=== PATIENT | female | born 1950 | race Caucasian/White ===

== ENCOUNTER → 2016-07-22 | Outpatient (CLI) | payer BC ==
[~2016-07-22] MED LIST: AMLO-110 PO; AMLO2.5T PO; ASPI-232 PO; ATOR-26 PO; CPR250 PO; CYAN50002 SL; FLUO20CA35 PO; GLIP10TA10 PO; ISOS120T5 PO; LANS15CA15 PO; LIRA18IN INJ; LIRA18IN SQ; LSN20 PO; MISCCAP80 PO; MULTTAB5 PO; NTRGSL/4 UT; PLV75 PO; RANO500T PO; TPRSR/50 PO
--- NOTE | 2016-07-23 08:02 | MAMMOGRAPHY REPORT ---
BILATERAL DIGITAL SCREENING MAMMOGRAM WITH CAD: 07/22/2016 CLINICAL HISTORY: Routine screening examination. TECHNIQUE: Bilateral CC and MLO views were obtained. Current study was also evaluated with a Comput er Aided Detection (CAD) system. COMPARISON: Comparison is made to exams dated: 03/07/2015 mammogram, 02/18/2014 mammogram, 08/11/2012 mammogram, and 05/09/2006 mammogram - [facility]. BREAST COMPOSITION: There are scattered areas of fibroglandular density in both breasts. FINDINGS: There are scattered benign coarse calcifications and mild vascular calcifications in the b reasts. No suspicious mass, architectural distortion or cluster of microcalcifications is seen. IMPRESSION: ACR BI-RADS CATEGORY 1: NEGATIVE There is no mammographic evidence of malignancy. A 1 year screening mammogram is recommended. The p atient will receive written notification of the results. Approximately 10% of breast cancers are not detected with mammography. A negative mammographic repor t should not delay biopsy if a clinically suggestive mass is present. Mary Darden M.D. ay/:07/22/2016 16:41:28 Utility Maintenance Worker: Esthela SALAZAR)([place]), [facility] letter sent: Normal 1/2 BI-RADS Code: ACR BI-RADS Category 1: Negative
== END | disposition home or self-care (01) ==
LOC: C.MAMM 11:33
PROVIDERS: ATTEND Internal Medicine
DX: Z12.31 Encounter for screening mammogram for malignant neoplasm of breast (principal)

== ENCOUNTER 2016-08-09 10:06 | Emergency (ER) | payer BC ==
[~2016-08-09] VITALS: Ht 160 cm; Wt 96.3 kg
[~2016-08-09 10:06] MED LIST changes: -AMLO-110 PO; -LIRA18IN INJ; -RANO500T PO
[2016-08-09 10:12] VITALS: TEMP 36.4; Ht 160 cm; Wt 96.3 kg
[2016-08-09] MEDS ORDERED: ACETAMINOPHEN 500 MG TAB PO STA (11:09)
--- NOTE | 2016-08-09 11:29 | EMERGENCY ROOM VISIT NOTE ---
ED Visit Note First contact with patient: 10:50 I have seen and examined this patient with Jarrod Jason and generally agree with the treatment plan as discussed.
--- NOTE | 2016-08-09 11:58 | DIAGNOSTIC IMAGING REPORT ---
RIGHT KNEE 3 VIEWS CLINICAL HISTORY: Right knee pain. FINDINGS: AP, crosstable lateral, and sunrise views of the right knee are obtained. No prior studies are available for comparison at the time of dictation. The skeletal structures are osteopenic. No fracture is seen. There is mild tricompartmental degenerative joint space narrowing, greatest in the lateral and patellofemoral compartments. There are patellar enthesophytes and tiny marginal osteophytes. No joint effusion is seen. The overlying soft tissues are within normal limits. Bony overgrowth is noted from the anterior tibial tuberosity. A calcified fabella is incidentally noted. IMPRESSION: Osteopenia and mild degenerative change as above. No acute bony abnormality is seen. Electronically signed by: Gianni Polk M.D. 08/09/2016 11:57 AM Dictated Date/Time: 08/09/2016 11:55 AM
--- NOTE | 2016-08-09 12:04 | DIAGNOSTIC IMAGING REPORT ---
RIGHT ANKLE 3 VIEWS HISTORY: Right ankle pain. COMPARISON: None. FINDINGS: There is no fracture or dislocation. Soft tissues are unremarkable. Plantar and posterior calcaneal spurs. IMPRESSION: No fractures. Electronically signed by: Nick Garcia M.D. 08/09/2016 12:02 PM Dictated Date/Time: 08/09/2016 12:00 PM
[2016-08-09] MEDS ORDERED: RANO500T PO (12:12)
[2016-08-09] MEDS ORDERED: AMLO-110 PO (12:12)
--- NOTE | 2016-08-09 12:25 | EMERGENCY ROOM VISIT NOTE ---
ED Visit Note First contact with patient: 10:50 CHIEF COMPLAINT: Right lower leg injury after a fall 2 hours ago HISTORY OF PRESENT ILLNESS: Patient is a 66-year-old white female who presents emergency department for evaluation of right lower leg pain after a fall this morning. Injury occurred about 2 hours ago when she slipped down the stairs to her deck. They report that they were icy. She reports doing a splint, with her right leg out in front of her. She slid down around 8 steps. She had an appointment for an eye exam, so she This, then came to the emergency department. She did not strike her head or lose consciousness. She was able to ambulate after the fall, but reports increasing pain as the morning has gone on. She did not take any medication for her discomfort which she presently rates a 5/10. The pain is localized around the anterior knee, and radiates down the right lower leg. She denies any upper leg or hip pain. It is worse weightbearing. She denies any prior history of injuries or surgeries to the right leg. REVIEW OF SYSTEMS: Review of systems as per HPI. All other systems reviewed were negative. At least 6 systems reviewed. PMH: Electronic medical records are reviewed and summarized as above/below. See Problem List. SOCIAL HISTORY: Patient lives at home. . Nonsmoker. PHYSICAL EXAM: Vital Signs: Reviewed Nurse's notes. MENTAL STATUS: Patient is an uncomfortable-appearing 58-year-old white female who is awake and alert and in no acute distress. MUSCULOSKELETAL: Examination of the lower extremities bilaterally show ecchymosis in the anterior knee and pretibial area. Skin is otherwise intact. She does not have any right knee effusion palpable. She has some peripatellar tenderness and crepitus and medial joint line discomfort. No pain over the lateral joint line. She has some discomfort over the tibial tuberosity as well. She can extend fully and flex greater than 90. The calves are soft and nontender. There is no pain along the anterior tibial spine. She does have some discomfort over the distal tibial shaft, slight pain over the medial and lateral malleolus, but no swelling of the ankle is noted. Foot is normal to inspection. There is no ecchymosis or swelling noted. Metatarsals are nontender. Distal pulses are easily palpable. Sensation light touch is intact. EMERGENCY DEPARTMENT COURSE: Patient was medicated with Tylenol for discomfort. Ice packs were applied. Right knee and right ankle x-rays were performed, which noted minor arthritic changes. No acute fractures identified. The patient was reassured. Differential diagnoses included fracture, sprain, contusion, ligamentous injury, strain, among others. Patient was offered an Danilo wrap. She reports they have multiple assistive devices at home including crutches, cane and a walker. She was encouraged to ice the areas that were painful, rest and elevate the leg, and use a cane if needed for ambulation. She will use Tylenol or ibuprofen for discomfort. She declined prescription analgesia. RIGHT KNEE 3 VIEWS CLINICAL HISTORY: Right knee pain. FINDINGS: AP, crosstable lateral, and sunrise views of the right knee are obtained. No prior studies are available for comparison at the time of dictation. The skeletal structures are osteopenic. No fracture is seen. There is mild tricompartmental degenerative joint space narrowing, greatest in the lateral and patellofemoral compartments. There are patellar enthesophytes and tiny marginal osteophytes. No joint effusion is seen. The overlying soft tissues are within normal limits. Bony overgrowth is noted from the anterior tibial tuberosity. A calcified fabella is incidentally noted. IMPRESSION: Osteopenia and mild degenerative change as above. No acute bony abnormality is seen. RIGHT ANKLE 3 VIEWS HISTORY: Right ankle pain. COMPARISON: None. FINDINGS: There is no fracture or dislocation. Soft tissues are unremarkable. Plantar and posterior calcaneal spurs. IMPRESSION: No fractures. Problem List Medical Problems: (1) Acute gastroenteritis Status: Resolved (2) Angina pectoris Status: Resolved (3) CAD (coronary artery disease) Status: Chronic (4) Chest pain Status: Resolved (5) CP, CAD, DM2 Status: Chronic (6) Dehydration, sycope, possible renal colic Status: Resolved (7) Diabetes Status: Chronic (8) Dyslipidemia Status: Chronic (9) Felon Status: Resolved (10) GERD (gastroesophageal reflux disease) Status: Chronic (11) Hypertension Status: Chronic (12) Paronychia Status: Resolved (13) Precordial chest pain Status: Resolved (14) Sepsis Status: Resolved (15) Shingles Status: Resolved (16) Substernal chest pain Status: Resolved (17) SYNCOPE, ABD.PAIN,CAD,DM2 Status: Resolved (18) Unstable angina Status: Resolved Surgical Problems: (1) H/O percutaneous transluminal coronary angioplasty Status: Resolved (2) History of cholecystectomy Status: Resolved (3) History of hysterectomy Status: Resolved (4) History of splenectomy Status: Resolved (5) History of stent placement Status: Resolved (6) Stented coronary artery Status: Chronic Current/Historical Medications Scheduled Amlodipine (Norvasc), 2.5 MG PO DAILY Aspirin (Aspir-81), 81 MG PO QAM Atorvastatin (Lipitor), 80 MG PO DAILY Clopidogrel Bisulfate (Clopidogrel), 75 MG PO QAM Fluoxetine (Prozac), 20 MG PO DAILY Glipizide (Glipizide), 20 MG PO BID Isosorbide Mononitrate Ext Rel (Imdur Ext Rel), 120 MG PO QAM Lansoprazole (Prevacid), 15 MG PO DAILY Lisinopril (Lisinopril), 20 MG PO DAILY Probiotic Product (Probiotic), 1 CAP PO DAILY Ranolazine (Ranexa), 1 TAB PO BID Scheduled PRN Nitroglycerin (Nitrostat), 0.4 MG UT UD PRN for Chest Pain Allergies Coded Allergies: Penicillins (Verified Allergy, Intermediate, Numbness of lips, 09/12/15) Prasugrel (Verified Allergy, Intermediate, RASH,ITCHY, 04/12/16) Vital Signs Date Time Temp Pulse Resp B/P Pulse Ox O2 Delivery O2 Flow Rate FiO2 08/09/16 12:34 65 18 152/63 97 08/09/16 11:25 66 18 136/57 96 Room Air 08/09/16 10:12 36.4 59 18 163/76 96 Room Air Medications Administered Medications (Trade) Dose Ordered Sig/Lory Route Start Time Stop Time Status Last Admin Dose Admin Acetaminophen (Tylenol Tab) 1,000 mg NOW STAT PO 08/09/16 11:09 08/09/16 11:10 DC 08/09/16 11:24 1,000 MG Departure Information Impression Primary Impression: Right knee sprain Additional Impressions: Contusion of leg, right Fall Referrals Daniel Oreilly M.D. (PCP) Patient Instructions My [facility] Additional Instructions Ibuprofen(Motrin, Advil) may be used for fever or pain. Use 600mg every six hours as needed. Take with food. Avoid using more than 2400mg in a 24 hour period. Do not use 2400mg per day for more than three consecutive days without physician direction. Prolonged inappropriate use can lead to stomach upset or ulcers. This medication can be taken if you need to drive, work, or perform activities which may be dangerous when taking narcotic pain medication. (AND/OR) Acetaminophen(Tylenol) may be used for fever or pain. Use 1000mg every six hours as needed. Avoid using more than 3000mg in a 24 hour period. This medication can be taken if you need to drive, work, or perform activities which may be dangerous when taking narcotic pain medication. Ice compresses for 20 minutes at a time four times daily for 2-3 days. Use a cane/walker/crutches if needed. Rest and elevate your injury. Continue current medications. Return to the ER immediately for any numbness, tingling, severe pain, extreme swelling in the extremity or as needed. Follow-up with your primary care provider or orthopedic surgery if your symptoms are not improving in 5-7 days. Problem Qualifiers Primary Impression: Right knee sprain Encounter type: initial encounter Involved ligament of knee: unspecified ligament Qualified Codes: S83.91XA - Sprain of unspecified site of right knee , initial encounter Additional Impressions: Contusion of leg, right Encounter type: initial encounter Qualified Codes: S80.11XA - Contusion of right lower leg, initial encounter Fall Encounter type: initial encounter Qualified Codes: W19.XXXA - Unspecified fall, initial encounter
[2016-08-09 12:34] VITALS: BP 152/63; PULSE 65; O2SAT 97
== END 2016-08-09 12:37 | disposition home or self-care (01) ==
LOC: C.EDB 10:08 → C.EDC 12:37
DX: S83.91XA Sprain of unspecified site of right knee, initial encounter (principal); S80.11XA Contusion of right lower leg, initial encounter; W19.XXXA Unspecified fall, initial encounter; I25.10 Atherosclerotic heart disease of native coronary artery without angina pectoris; E11.9 Type 2 diabetes mellitus without complications; E78.5 Hyperlipidemia, unspecified; K21.9 Gastro-esophageal reflux disease without esophagitis; I10 Essential (primary) hypertension; Z90.49 Acquired absence of other specified parts of digestive tract; Z90.710 Acquired absence of both cervix and uterus; Z79.82 Long term (current) use of aspirin

== ENCOUNTER → 2016-09-12 | Outpatient (CLI) | payer BC ==
[~2016-09-12] MED LIST changes: +AMLO-110 PO; -AMLO2.5T PO; -CPR250 PO; -CYAN50002 SL; +LIRA18IN INJ; -LIRA18IN SQ; -MULTTAB5 PO; +RANO500T PO; -TPRSR/50 PO
[2016-09-12 12:46] LABS: BASO % 0.7 %; BASO ABS # 0.06 K/uL (0-0.2); COMPLETE YES; EOS % 3.5 %; HEMATOCRIT 33.4 % (37-47); IG% 0.1 %; LYMPH % 38.7 %; LYMPH ABS # 3.31 K/uL (1.2-3.4); MEAN CELL VOLUME 92.3 fL (80-100); MEAN CORPUSCULAR HEMOGLOBIN 28.2 pg (25-34); MEAN CORPUSCULAR HGB CONC 30.5 g/dl (32-36); MEAN PLATELET VOLUME 11.1 fL (7.4-10.4); MONO % 11.8 %; NEUT % 45.2 %; PLATELET COUNT 380 K/uL (130-400); RED BLOOD COUNT 3.62 M/uL (4.2-5.4); WHITE BLOOD COUNT 8.55 K/uL (4.8-10.8)
[2016-09-12 13:10] LABS: ESTIMATED AVERAGE GLUCOSE 157 mg/dl; HA1C FLAG Normal (Normal)
[2016-09-12 13:55] LABS: ALT/SGPT 28 U/L (12-78); BLOOD UREA NITROGEN 23 mg/dl (7-18); BUN/CREATININE RATIO 14.2 (10-20); CALCIUM 9.2 mg/dl (8.5-10.1); CARBON DIOXIDE 29 mmol/L (21-32); CHLORIDE 107 mmol/L (98-107); GLUCOSE 102 mg/dl (70-99); POTASSIUM 5.1 mmol/L (3.5-5.1); SODIUM 140 mmol/L (136-145)
[2016-09-12 13:58] LABS: ALB/GLOB RATIO 1.1 (0.9-2); ALKALINE PHOSPHATASE 91 U/L (45-117); AST/SGOT 15 U/L (15-37); CHOLESTEROL 153 mg/dl (0-200); CHOLESTEROL/HDL RATIO 1.5; HDL CHOLESTEROL 104 mg/dl; TRIGLYCERIDES 61 mg/dl (0-150); VERY LOW DENSITY LIPOPROT CALC 12 mg/dl
[2016-09-12 17:02] LABS: RATIO 6.6 mcg/mg (0-30.0)
== END | disposition home or self-care (01) ==
LOC: C.LABSPEC 12:26
PROVIDERS: ATTEND Internal Medicine
DX: I10 Essential (primary) hypertension (principal); E11.65 Type 2 diabetes mellitus with hyperglycemia; I25.10 Atherosclerotic heart disease of native coronary artery without angina pectoris; E78.5 Hyperlipidemia, unspecified

== ENCOUNTER 2016-10-16 10:01 | Emergency (ER) | payer BC ==
[~2016-10-16 10:01] MED LIST changes: -LIRA18IN INJ
[2016-10-16 10:02] VITALS: Ht 160 cm
[2016-10-16] MEDS ORDERED: ASPIRIN 81 MG CHEW PO STA (10:35)
[2016-10-16 10:36] VITALS: O2SAT 100
--- NOTE | 2016-10-16 10:38 | EMERGENCY ROOM VISIT NOTE ---
History Report prepared by Kristi: Alvin Krueger Under the Supervision of: Dr. Antonia Hernandez M.D. First contact with patient: 10:16 Chief Complaint: CHEST PAIN Stated Complaint: CHEST PAIN, LIGHTHEADED History of Present Illness The patient is a 66 year old female with a history of coronary artery disease who presents to the Emergency Room with complaints of persistent left-sided chest pain that started this morning. The pain is rated 5/10 in severity. She did not take any Nitroglycerin as she forgot it, but she notes that it usually helps when she experiences chest pain. She had 81 mg Aspirin. The patient also became lightheaded, and describes "having trouble hearing and trouble concentrating." The patient has some pain in the left arm down to the elbow. The patient was at a restaurant when her symptoms started, and she notes that she felt fine prior to that. The patient has had 5 stents placed, with the last being in August. The patient is scheduled to see Dr. Robledo, production control clerk. She is seen by the [facility]. She also has a history of diabetes. She is not a smoker. Source of History: patient Onset: this morning Position: chest (left) Symptom Intensity: 5/10 Timing: other (persistent) Note: + lightheadedness and left arm pain. Review of Systems See HPI for pertinent positives & negatives. A total of 10 systems reviewed and were otherwise negative. Past Medical & Surgical Medical Problems: (1) Acute gastroenteritis (2) Angina pectoris (3) CAD (coronary artery disease) (4) Chest pain (5) CP, CAD, DM2 (6) Dehydration, sycope, possible renal colic (7) Diabetes (8) Dyslipidemia (9) Felon (10) GERD (gastroesophageal reflux disease) (11) Hypertension (12) Paronychia (13) Precordial chest pain (14) Sepsis (15) Shingles (16) Substernal chest pain (17) SYNCOPE, ABD.PAIN,CAD,DM2 (18) Unstable angina Surgical Problems: (1) H/O percutaneous transluminal coronary angioplasty (2) History of cholecystectomy (3) History of hysterectomy (4) History of splenectomy (5) History of stent placement (6) Stented coronary artery Family History FHx: cancer FHx: diabetes FHx: hypertension Social History Smoking Status: Never Smoker Alcohol Use: none Marital Status: Housing Status: lives with significant other Occupation Status: retired Current/Historical Medications Scheduled Amlodipine (Norvasc), 2.5 MG PO DAILY Aspirin (Aspir-81), 81 MG PO QAM Atorvastatin (Lipitor), 80 MG PO DAILY Clopidogrel Bisulfate (Clopidogrel), 75 MG PO QAM Fluoxetine (Prozac), 20 MG PO DAILY Glipizide (Glipizide), 20 MG PO BID Isosorbide Mononitrate Ext Rel (Imdur Ext Rel), 120 MG PO QAM Lansoprazole (Prevacid), 15 MG PO DAILY Lisinopril (Lisinopril), 20 MG PO DAILY Probiotic Product (Probiotic), 1 CAP PO DAILY Ranolazine (Ranexa), 1,000 MG PO BID Scheduled PRN Nitroglycerin (Nitrostat), 0.4 MG UT UD PRN for Chest Pain Miscellaneous Medications Liraglutide (Victoza), 1.2 MG INJ Allergies Coded Allergies: Penicillins (Verified Allergy, Intermediate, Numbness of lips, 10/16/16) Prasugrel (Verified Allergy, Intermediate, RASH,ITCHY, 10/16/16) Physical Exam Vital Signs Date Time Temp Pulse Resp B/P (MAP) Pulse Ox O2 Delivery O2 Flow Rate FiO2 10/16/16 14:04 36.3 63 24 137/73 99 10/16/16 13:02 63 10/16/16 12:10 58 16 136/69 99 Room Air 10/16/16 10:36 100 Nasal Cannula 2.0 10/16/16 10:35 67 20 144/68 100 Nasal Cannula 2.0 10/16/16 10:19 66 10/16/16 10:02 36.3 65 16 121/71 100 Room Air Physical Exam Vital signs reviewed. General: Well-appearing female, diffuse weakness, in no significant distress. HEENT: No scleral icterus, PERRLA, neck supple. Atraumatic. Cardiovascular: Regular rate and rhythm, no extra sounds. Pulmonary: Clear to auscultation bilaterally, normal work of breathing. Abdomen: Soft, nontender, nondistended, positive bowel sounds. Musculoskeletal: Atraumatic, no peripheral edema. Neurologic: Patient awake alert and oriented x 3, full strength in all 4 extremities. Cranial nerves 2 through 12 grossly intact. No focal deficits appreciated. Skin: Warm, dry, no rash Medical Decision & Procedures ER Provider Diagnostic Interpretation: X-ray results as stated below per interpretation by me and the radiologist: CHEST ONE VIEW PORTABLE HISTORY: Atypical chest pain COMPARISON: Chest 04/11/2016. FINDINGS: The lungs are clear. Cardiac silhouette is mildly enlarged. No pleural effusions. No pneumothorax. IMPRESSION: Stable mild cardiomegaly. Electronically signed by: Nick Garcia M.D. 10/16/2016 11:11 AM Dictated Date/Time: 10/16/2016 11:11 AM Laboratory Results 10/16/16 10:15 Red Blood Count 3.51, Mean Corpuscular Volume 92.0, Mean Corpuscular Hemoglobin 29.3, Mean Corpuscular Hemoglobin Concent 31.9, Mean Platelet Volume 11.0, Neutrophils (%) (Auto) 49.9, Lymphocytes (%) (Auto) 34.1, Monocytes (%) (Auto) 12.7, Eosinophils (%) (Auto) 2.5, Basophils (%) (Auto) 0.5, Neutrophils # (Auto ) 5.08, Lymphocytes # (Auto) 3.48, Monocytes # (Auto) 1.30, Eosinophils # (Auto ) 0.26, Basophils # (Auto) 0.05 10/16/16 10:15 Test 10/16/16 10:15 10/16/16 12:36 White Blood Count 10.20 K/uL (4.8-10.8) Red Blood Count 3.51 M/uL (4.2-5.4) Hemoglobin 10.3 g/dL (12.0-16.0) Hematocrit 32.3 % (37-47) Mean Corpuscular Volume 92.0 fL (80-100) Mean Corpuscular Hemoglobin 29.3 pg (25-34) Mean Corpuscular Hemoglobin Concent 31.9 g/dl (32-36) Platelet Count 379 K/uL (130-400) Mean Platelet Volume 11.0 fL (7.4-10.4) Neutrophils (%) (Auto) 49.9 % Lymphocytes (%) (Auto) 34.1 % Monocytes (%) (Auto) 12.7 % Eosinophils (%) (Auto) 2.5 % Basophils (%) (Auto) 0.5 % Neutrophils # (Auto) 5.08 K/uL (1.4-6.5) Lymphocytes # (Auto) 3.48 K/uL (1.2-3.4) Monocytes # (Auto) 1.30 K/uL (0.11-0.59) Eosinophils # (Auto) 0.26 K/uL (0-0.5) Basophils # (Auto) 0.05 K/uL (0-0.2) RDW Standard Deviation 44.9 fL (36.4-46.3) RDW Coefficient of Variation 13.4 % (11.5-14.5) Immature Granulocyte % (Auto) 0.3 % Immature Granulocyte # (Auto) 0.03 K/uL (0.00-0.02) Anion Gap 6.0 mmol/L (3-11) Estimated GFR () 41.1 Estimated GFR (Non- 35.4 BUN/Creatinine Ratio 14.5 (10-20) Calcium Level 8.3 mg/dl (8.5-10.1) Magnesium Level 2.1 mg/dl (1.8-2.4) Total Bilirubin 0.8 mg/dl (0.2-1) Direct Bilirubin 0.2 mg/dl (0-0.2) Aspartate Amino Transf (AST/SGOT) 16 U/L (15-37) Alanine Aminotransferase (ALT/SGPT) 19 U/L (12-78) Alkaline Phosphatase 99 U/L (45-117) Total Creatine Kinase 62 U/L (26-192) Creatine Kinase MB < 0.5 ng/ml (0.5-3.6) Creatine Kinase MB Ratio (0-3.0) Total Protein 6.6 gm/dl (6.4-8.2) Albumin 3.4 gm/dl (3.4-5.0) Bedside Troponin I 0.000 ng/ml (0-0.045) Laboratory results per my review. Medications Administered Medications (Trade) Dose Ordered Sig/Lory Route Start Time Stop Time Status Last Admin Dose Admin Nitroglycerin (Nitroglycerin 2% Oint) 1 inch NOW ONCE EXT 10/16/16 10:45 10/16/16 10:46 DC 10/16/16 10:46 1 INCH Aspirin (Aspirin Chew) 243 mg NOW STAT PO 10/16/16 10:35 10/16/16 10:37 DC 10/16/16 10:45 243 MG ECG Indication: chest pain Rate (beats per minute): 67 Rhythm: sinus rhythm Findings: 1st degree AV block, other (likely prevoius inferior and anterior infarct) ED Course 1030: Past medical records reviewed. The patient was evaluated in room B7. A complete history and physical examination was performed. 1035: Aspirin 243 mg PO. 1045: Nitroglycerin 1 inch EXT. 1325: Reassessed the patient. She is doing well. Paging Dr. Gong. 1334: Discussed the case with Dr. Gong, Knotting Machine Operator. He states that she has an extensive cardiac history and should follow up at the [facility]. Medical Decision Differential diagnosis: Acute coronary syndrome, pulmonary embolus, aortic dissection, musculoskeletal pain, pneumonia, pleural effusion, pneumothorax Medication Reconciliation: I attest that I have personally reviewed the patient' s current medication list. Blood Pressure Screening: Patient was found to have fair blood pressure on screening and does not require follow-up. This pt was evaluated and appeared to be generally weak, but in no distress. IV access was obtained and lab work was drawn. Pt seemed to be anxious and was only fairly cooperative with exam. She required significant encouragement to complete the neuro exam. EKG reveals no acute ischemia. CXR reveals mild cardiomegaly. Pt was given topical NTG. Two troponins are 0.0. Pt has a significant h/o CAD and stenting. She was advised that she will require surgical intervention if anginal sx continue. I discussed the case with her PCP , Dr Amanda Boyer, who will see the pt tomorrow in f/u. Pt was d/c to care of multiple family members. She will return to the ED for any change in symptoms. She was encouraged to contact her production control clerk at the [facility] for f/ u MITZI. Impression Primary Impression: Substernal precordial chest pain Additional Impression: CAD (coronary artery disease) Scribe Attestation The scribe's documentation has been prepared under my direction and personally reviewed by me in its entirety. I confirm that the note above accurately reflects all work, treatment, procedures, and medical decision making performed by me. Departure Information Dispostion Home / Self-Care Referrals Aboul Hosn, Daniel, M.D. (PCP) Forms HOME CARE DOCUMENTATION FORM, IMPORTANT VISIT INFORMATION Patient Instructions My [facility] Additional Instructions Diagnosis: Coronary disease, Chest pain Continue medications as prescribed. See Dr Amanda Boyer tomorrow. Follow up with [facility] this week for reevaluation, call today for an appt. Return to emergency for worsening of symptoms or any medical concerns. Problem Qualifiers
[2016-10-16] MEDS ORDERED: NITROGLYCERIN OINT 2% 1GM PACKET EXT ONE (10:45)
[2016-10-16 10:55] LABS: BASO % 0.5 %; BASO ABS # 0.05 K/uL (0-0.2); COMPLETE YES; EOS % 2.5 %; HEMATOCRIT 32.3 % (37-47); IG% 0.3 %; LYMPH % 34.1 %; LYMPH ABS # 3.48 K/uL (1.2-3.4); MEAN CORPUSCULAR HEMOGLOBIN 29.3 pg (25-34); MEAN CORPUSCULAR HGB CONC 31.9 g/dl (32-36); MONO % 12.7 %; NEUT % 49.9 %; PLATELET COUNT 379 K/uL (130-400); RED BLOOD COUNT 3.51 M/uL (4.2-5.4)
[2016-10-16 11:05] LABS: ALT/SGPT 19 U/L (12-78); AST/SGOT 16 U/L (15-37); BLOOD UREA NITROGEN 22 mg/dl (7-18); BUN/CREATININE RATIO 14.5 (10-20); CALCIUM 8.3 mg/dl (8.5-10.1); CARBON DIOXIDE 26 mmol/L (21-32); CHLORIDE 107 mmol/L (98-107); GLUCOSE 170 mg/dl (70-99); MAGNESIUM 2.1 mg/dl (1.8-2.4); POTASSIUM 4.8 mmol/L (3.5-5.1); SODIUM 139 mmol/L (136-145)
[2016-10-16 11:10] LABS: ALKALINE PHOSPHATASE 99 U/L (45-117)
--- NOTE | 2016-10-16 11:13 | DIAGNOSTIC IMAGING REPORT ---
CHEST ONE VIEW PORTABLE HISTORY: Atypical chest pain COMPARISON: Chest 04/11/2016. FINDINGS: The lungs are clear. Cardiac silhouette is mildly enlarged. No pleural effusions. No pneumothorax. IMPRESSION: Stable mild cardiomegaly. Electronically signed by: Nick Garcia M.D. 10/16/2016 11:11 AM Dictated Date/Time: 10/16/2016 11:11 AM
[2016-10-16] MEDS ORDERED: LIRA18IN INJ (11:37)
[2016-10-16 14:04] VITALS: BP 137/73; PULSE 63; TEMP 36.3; O2SAT 99
== END 2016-10-16 13:56 | disposition home or self-care (01) ==
LOC: C.EDB 10:02
DX: R07.2 Precordial pain (principal); I25.10 Atherosclerotic heart disease of native coronary artery without angina pectoris; E11.9 Type 2 diabetes mellitus without complications; E78.5 Hyperlipidemia, unspecified; K21.9 Gastro-esophageal reflux disease without esophagitis; I10 Essential (primary) hypertension; Z80.9 Family history of malignant neoplasm, unspecified; Z83.3 Family history of diabetes mellitus; Z82.49 Family history of ischemic heart disease and other diseases of the circulatory system; Z79.82 Long term (current) use of aspirin; Z79.899 Other long term (current) drug therapy

== ENCOUNTER → 2016-11-14 | Outpatient (CLI) | payer BC ==
[~2016-11-14] MED LIST changes: +LIRA18IN INJ
[2016-11-14 12:13] LABS: INR 1.3 (0.9-1.1); PROTHROMBIN TIME (PATIENT) 13.8 SECONDS (9.0-12.0)
== END | disposition home or self-care (01) ==
LOC: C.LABSPEC 11:45
PROVIDERS: ATTEND Internal Medicine
DX: I48.91 Unspecified atrial fibrillation (principal); Z79.01 Long term (current) use of anticoagulants

== ENCOUNTER 2016-11-15 20:20 | Emergency (ER) | payer BC ==
[~2016-11-15] VITALS: Ht 160 cm; Wt 102.6 kg
[2016-11-15 20:25] VITALS: Ht 160 cm; Wt 102.6 kg
--- NOTE | 2016-11-15 20:54 | EMERGENCY ROOM VISIT NOTE ---
History Report prepared by Kristi: Delaney Parham Under the Supervision of: Dr. Gordo Jett M.D. First contact with patient: 20:33 Chief Complaint: INFECTION Stated Complaint: INFECTION IN SURGERY SITE AROUND ABD History of Present Illness The patient is a 66 year old female who presents to the Emergency Room with complaints of a constant infection beginning today. The patient states that she had a double bypass 10 days ago and came home from the hospital 4 days ago. She notes that she is having some yellow drainage and redness from the surgical site and soreness. She denies any fever and abdominal pain. . The patient states that she has a follow up with Dr. Robledo here in the next few days. Source of History: patient Onset: today Position: chest Quality: other (infection) Timing: constant Associated Symptoms: No fevers Note: She notes that she is having some yellow drainage and redness from the surgical site and soreness. Review of Systems See HPI for pertinent positives & negatives. A total of 10 systems reviewed and were otherwise negative. Past Medical & Surgical Medical Problems: (1) Acute gastroenteritis (2) Angina pectoris (3) CAD (coronary artery disease) (4) Chest pain (5) CP, CAD, DM2 (6) Dehydration, sycope, possible renal colic (7) Diabetes (8) Dyslipidemia (9) Felon (10) GERD (gastroesophageal reflux disease) (11) Hypertension (12) Paronychia (13) Precordial chest pain (14) Sepsis (15) Shingles (16) Substernal chest pain (17) SYNCOPE, ABD.PAIN,CAD,DM2 (18) Unstable angina Surgical Problems: (1) H/O percutaneous transluminal coronary angioplasty (2) History of cholecystectomy (3) History of hysterectomy (4) History of splenectomy (5) History of stent placement (6) Stented coronary artery Family History FHx: cancer FHx: diabetes FHx: hypertension Social History Smoking Status: Never Smoker Alcohol Use: none Marital Status: Housing Status: lives with significant other Occupation Status: retired Current/Historical Medications Scheduled Amlodipine (Norvasc), 2.5 MG PO DAILY Aspirin (Aspir-81), 81 MG PO QAM Atorvastatin (Lipitor), 80 MG PO DAILY Clopidogrel Bisulfate (Clopidogrel), 75 MG PO QAM Fluoxetine (Prozac), 20 MG PO DAILY Glipizide (Glipizide), 20 MG PO BID Isosorbide Mononitrate Ext Rel (Imdur Ext Rel), 120 MG PO QAM Lansoprazole (Prevacid), 15 MG PO DAILY Lisinopril (Lisinopril), 20 MG PO DAILY Probiotic Product (Probiotic), 1 CAP PO DAILY Ranolazine (Ranexa), 1,000 MG PO BID Scheduled PRN Nitroglycerin (Nitrostat), 0.4 MG UT UD PRN for Chest Pain Miscellaneous Medications Liraglutide (Victoza), 1.2 MG INJ Allergies Coded Allergies: Penicillins (Verified Allergy, Intermediate, Numbness of lips, 10/16/16) Prasugrel (Verified Allergy, Intermediate, RASH,ITCHY, 10/16/16) Physical Exam Vital Signs Date Time Temp Pulse Resp B/P (MAP) Pulse Ox O2 Delivery O2 Flow Rate FiO2 11/15/16 20:55 36.8 71 18 155/61 98 11/15/16 20:25 36.8 75 18 142/71 98 Room Air Physical Exam GENERAL: Patient is a healthy-appearing well-nourished female HEAD: Normocephalic atraumatic EYES: Ocular movements intact pupils equal and react to light OROPHARYNX mucous membranes are moist no exudates present no erythema or edema present NECK: Supple no nuchal rigidity CHEST: Good equal expansion LUNGS: Clear and equal to auscultation CARDIAC: Normal S1 and S2 ABDOMEN: Soft nontender no guarding. The patient has 3 surgical wounds, no evidence of infection, unable to express any serosanguinous fluid or pus from the wound, appears to be granulomatous tissue that is healing well, no redness or streaking form the wound BACK: No CVA tenderness EXTREMITIES: No pain upon palpation normal muscle strength in all groups no clubbing cyanosis or edema NEURO: Patient is following commands and answering questions appropriately. Alert and oriented x3 Cranial Nerves 2-12 grossly intact Medical Decision & Procedures ED Course 2032: Past medical records reviewed. The patient was evaluated in room A4. A complete history and physical examination was performed. 2043: Upon reexamination the patient is doing well. I discussed results and treatment plan with the patient. She verbalizes agreement and understanding. The patient is ready for discharge. Medical Decision Differential diagnosis: Etiologies such as cellulitis, abscess, MRSA infection, DVT, necrotizing fasciitis, dermatitis, drug eruption, as well as others were entertained. Medication Reconciliation: I attest that I have personally reviewed the patient' s current medication list Blood Pressure Screening: Patient was found to have an elevated blood pressure and was referred to their primary care doctor for recheck and further treatment This is a 66-year-old female who presents emergency department requesting evaluation of a surgical site. The patient feels that there is pus leaking from the site however on examination this appears to be granulomatous tissue. I cannot express any fluid or pus from the patient's surgical wounds and they do appear to be healing well. A wound culture was taken however the patient does not have any fevers. I do believe that she can be safely discharged home for follow-up with her surgeon. Patient was in agreement with the treatment plan. Impression Primary Impression: Visit for wound check Scribe Attestation The scribe's documentation has been prepared under my direction and personally reviewed by me in its entirety. I confirm that the note above accurately reflects all work, treatment, procedures, and medical decision making performed by me. Departure Information Dispostion Home / Self-Care Referrals Daniel Oreilly M.D. (PCP) Forms HOME CARE DOCUMENTATION FORM, IMPORTANT VISIT INFORMATION, WORK / SCHOOL INSTRUCTIONS Patient Instructions [facility], [facility], Wound Care - [facility] Additional Instructions Apply bacitracin twice daily to wound, keep clean and dry Return if you develop fevers, pus or streaking from wound You were found to have an elevated blood pressure today (>120 sytolic or >90 diastolic). Per medicare guidelines, you need to follow up with this blood pressure screening with your Primary Care Physician (PCP). For a new PCP call [phone]. Culture results are usually available in approx 48 hours You have been examined and treated today on an emergency basis only. This is not a substitute for, or an effort to provide, complete comprehensive medical care. It is impossible to recognize and treat all injuries or illnesses in a single emergency department visit. It is therefore important that you follow up closely with Dr Amanda Boyer. Call as soon as possible for an appointment. Thank you for your time and consideration. I look forward to speaking with you again soon. Please don't hesitate to call us if you have any questions.
[2016-11-15 20:55] VITALS: BP 155/61; PULSE 71; TEMP 36.8; O2SAT 98
== END 2016-11-15 20:56 | disposition home or self-care (01) ==
LOC: C.EDB 20:21 → C.EDA 20:56
DX: Z76.89 Persons encountering health services in other specified circumstances (principal); I20.9 Angina pectoris, unspecified; I25.10 Atherosclerotic heart disease of native coronary artery without angina pectoris; E11.9 Type 2 diabetes mellitus without complications; E78.5 Hyperlipidemia, unspecified; K21.9 Gastro-esophageal reflux disease without esophagitis; I10 Essential (primary) hypertension; Z83.3 Family history of diabetes mellitus; Z82.49 Family history of ischemic heart disease and other diseases of the circulatory system; Z79.82 Long term (current) use of aspirin

== ENCOUNTER → 2016-11-18 | Outpatient (CLI) | payer BC ==
[2016-11-18 14:50] LABS: PROTHROMBIN TIME (PATIENT) 22.5 SECONDS (9.0-12.0)
== END | disposition home or self-care (01) ==
LOC: C.LABSPEC 10:30
PROVIDERS: ATTEND Internal Medicine
DX: I48.91 Unspecified atrial fibrillation (principal)

== ENCOUNTER → 2016-12-02 | Outpatient (CLI) | payer BC ==
[2016-12-02 17:23] LABS: INR 5.3 (0.9-1.1)
== END | disposition home or self-care (01) ==
LOC: C.LABSPEC 14:41
PROVIDERS: ATTEND Internal Medicine
DX: I48.91 Unspecified atrial fibrillation (principal); Z79.01 Long term (current) use of anticoagulants

== ENCOUNTER → 2016-12-12 | Outpatient (CLI) | payer BC ==
--- NOTE | 2016-12-12 10:16 | DIAGNOSTIC IMAGING REPORT ---
CHEST 2 VIEWS ROUTINE CLINICAL HISTORY: 66 years-old Female presenting with pleural effusion. TECHNIQUE: PA and lateral views of the chest were obtained. COMPARISON: 10/16/2016. FINDINGS: Median sternotomy wires now in place. Enlargement of the cardiac silhouette unchanged. Interval development of left basilar opacity with blunting of the left costophrenic angle. No pneumothorax. Osseous structures normal. Cholecystectomy clips noted. IMPRESSION: 1. Left basilar opacity, possibly atelectasis although infection cannot be excluded. 2. Small left pleural effusion. 3. Cardiomegaly. No yue evidence of pulmonary edema. Electronically signed by: Gavino Whitten M.D. 12/12/2016 10:14 AM Dictated Date/Time: 12/12/2016 10:13 AM
== END | disposition home or self-care (01) ==
LOC: C.RAD1850 09:54
PROVIDERS: ATTEND Internal Medicine Interventional Cardiology
DX: J90 Pleural effusion, not elsewhere classified (principal)

== ENCOUNTER → 2016-12-16 | Outpatient (CLI) | payer BC ==
[2016-12-16 15:39] LABS: PROTHROMBIN TIME (PATIENT) 22.4 SECONDS (9.0-12.0)
== END | disposition home or self-care (01) ==
LOC: C.LABSPEC 15:03
PROVIDERS: ATTEND Internal Medicine
DX: I48.91 Unspecified atrial fibrillation (principal); Z79.01 Long term (current) use of anticoagulants

== ENCOUNTER → 2017-01-17 | Outpatient (CLI) | payer BC ==
[2017-01-17 12:45] LABS: INR 2.3 (0.9-1.1)
[2017-01-17 12:48] LABS: ALT/SGPT 19 U/L (12-78); AST/SGOT 20 U/L (15-37); BLOOD UREA NITROGEN 15 mg/dl (7-18); BUN/CREATININE RATIO 10.2 (10-20); CALCIUM 9.1 mg/dl (8.5-10.1); CARBON DIOXIDE 29 mmol/L (21-32); CHLORIDE 102 mmol/L (98-107); CHOLESTEROL 161 mg/dl (0-200); GLUCOSE 172 mg/dl (70-99); POTASSIUM 4.5 mmol/L (3.5-5.1); SODIUM 139 mmol/L (136-145)
[2017-01-17 12:51] LABS: ALB/GLOB RATIO 0.9 (0.9-2); ALKALINE PHOSPHATASE 103 U/L (45-117); CHOLESTEROL/HDL RATIO 2.2; HDL CHOLESTEROL 73 mg/dl; TRIGLYCERIDES 93 mg/dl (0-150); VERY LOW DENSITY LIPOPROT CALC 19 mg/dl
[2017-01-17 13:03] LABS: ESTIMATED AVERAGE GLUCOSE 157 mg/dl; HA1C FLAG Normal (Normal)
== END | disposition home or self-care (01) ==
LOC: C.LABSPEC 12:14
PROVIDERS: ATTEND Internal Medicine
DX: Z79.01 Long term (current) use of anticoagulants (principal); E11.9 Type 2 diabetes mellitus without complications; I48.91 Unspecified atrial fibrillation; I10 Essential (primary) hypertension; I25.10 Atherosclerotic heart disease of native coronary artery without angina pectoris

== ENCOUNTER → 2017-02-07 | Outpatient (CLI) | payer BC ==
[2017-02-07 15:23] LABS: BLOOD UREA NITROGEN 21 mg/dl (7-18); CALCIUM 8.7 mg/dl (8.5-10.1); CARBON DIOXIDE 27 mmol/L (21-32); CHLORIDE 106 mmol/L (98-107); GLUCOSE 154 mg/dl (70-99); POTASSIUM 4.6 mmol/L (3.5-5.1); SODIUM 140 mmol/L (136-145)
== END | disposition home or self-care (01) ==
LOC: C.LABSPEC 14:26
PROVIDERS: ATTEND Internal Medicine Cardiovascular Disease
DX: I25.119 Atherosclerotic heart disease of native coronary artery with unspecified angina pectoris (principal); I12.9 Hypertensive chronic kidney disease with stage 1 through stage 4 chronic kidney disease, or unspecified chronic kidney disease; E11.22 Type 2 diabetes mellitus with diabetic chronic kidney disease; N18.3 Chronic kidney disease, stage 3 (moderate); E78.5 Hyperlipidemia, unspecified

== ENCOUNTER → 2017-02-13 | Outpatient (CLI) | payer BC ==
--- NOTE | 2017-02-13 10:41 | DIAGNOSTIC IMAGING REPORT ---
CHEST 2 VIEWS ROUTINE CLINICAL HISTORY: SOB COMPARISON STUDY: 12/12/2016 FINDINGS: There are postsurgical changes of a midline sternotomy. The heart remains enlarged. There is central vascular prominence without evidence of overt failure. There is been interval resolution of the previously identified left pleural effusion. There is no focal pulmonary consolidation.[ IMPRESSION: 1. Persistent cardiomegaly 2. Interval resolution of the small left pleural effusion 3. Mild central vascular prominence without evidence of overt failure Electronically signed by: Samir Tran M.D. 02/13/2017 10:40 AM Dictated Date/Time: 02/13/2017 10:39 AM
--- NOTE | 2017-02-18 01:40 | PULMONARY FUNCTION TEST ---
Spirometry shows a severe reduction in both forced vital capacity and FEV1 with a normal FEV1/FVC ratio. These results are compatible with severe restriction. A repeat study done, following bronchodilators, showed no significant change in function. Flow volume loops are consistent with spirometric findings. Lung volumes show a severe decrease in FRC, RV and TLC. This is consistent with severe restriction. Diffusion capacity is severely reduced to 41% of predicted. Advise clinical correlation.
== END | disposition home or self-care (01) ==
LOC: C.RC 09:10
PROVIDERS: ATTEND Internal Medicine
DX: R06.02 Shortness of breath (principal)

== ENCOUNTER → 2017-02-25 | Outpatient (CLI) | payer BC ==
[2017-02-25 16:35] LABS: BLOOD UREA NITROGEN 22 mg/dl (7-18); BUN/CREATININE RATIO 13.2 (10-20); CALCIUM 8.5 mg/dl (8.5-10.1); CARBON DIOXIDE 29 mmol/L (21-32); CHLORIDE 103 mmol/L (98-107); GLUCOSE 224 mg/dl (70-99); MAGNESIUM 2.3 mg/dl (1.8-2.4); POTASSIUM 4.6 mmol/L (3.5-5.1); SODIUM 137 mmol/L (136-145)
== END | disposition home or self-care (01) ==
LOC: C.LABSPEC 15:40
PROVIDERS: ATTEND Internal Medicine
DX: I10 Essential (primary) hypertension (principal); I25.10 Atherosclerotic heart disease of native coronary artery without angina pectoris

== ENCOUNTER → 2017-02-26 | Outpatient (CLI) | payer BC ==
[2017-02-26 17:37] LABS: ARTERIAL BLD GAS O2 SATURATION 94.6 % (90-95); ARTERIAL BLOOD GAS BASE EXCESS 1.1 mEq/L (-9-1.8); ARTERIAL BLOOD GAS HCO3 26 mmol/L (19-24); ARTERIAL BLOOD GAS PO2 83 mm/Hg (80-95)
[2017-02-26 17:38] LABS: ALLEN TEST POS (POS); O2 ADMINISTRATION ROOM AIR
== END | disposition home or self-care (01) ==
LOC: C.RC 17:08
PROVIDERS: ATTEND Internal Medicine
DX: J98.4 Other disorders of lung (principal)

== ENCOUNTER → 2017-05-05 | Outpatient (CLI) | payer BC ==
--- NOTE | 2017-05-05 16:11 | DIAGNOSTIC IMAGING REPORT ---
(CHEST) THORAX WITHOUT CLINICAL HISTORY: 67 years-old Female presenting with RESTRICTIVE LUNG DS. TECHNIQUE: Multidetector CT imaging of the chest was performed without the use of intravenous contrast. IV contrast: None. A dose lowering technique was used consistent with the principles of ALARA (as low as reasonably achievable). COMPARISON: Chest x-ray performed on 02/13/2017 and CTA from 07/11/2013. CT DOSE (mGy.cm): The estimated cumulative dose is 753.00 mGy.cm. FINDINGS: Javascript Programmer topogram: Median sternotomy wires. Cholecystectomy clips. On soft tissue windows, calcified nodule in the left thyroid lobe. No axillary, supraclavicular, or mediastinal lymphadenopathy. Evaluation of the justen limited without intravenous contrast. Atherosclerosis of the aorta. Postsurgical changes of coronary artery bypass. An epicardial lead remains in place anteriorly. Coronary artery calcification. No pericardial or pleural effusion. Focal thickening of the left trung of the diaphragm (series 4 image 227), unchanged from prior exam. Fat-containing lesion in the medial limb of the right adrenal gland consistent with myelolipoma also unchanged. Cholecystectomy clips. On lung windows, minimal groundglass opacities dependently in the right middle and right lower lobes. Mosaic attenuation could suggest small airways disease. Subpleural/peripheral solid nodules in the right upper lobe are unchanged. Peripheral nodule in the left lower lobe is also unchanged. No new pulmonary nodule. Large airways patent. On bone windows, degenerative changes of the spine. IMPRESSION: 1. Persistent mosaic attenuation suggesting small airways disease. 2. Stable pulmonary nodules. No new pulmonary nodule. 3. Postsurgical changes of CABG. Electronically signed by: Gavino Whitten M.D. 05/05/2017 4:09 PM Dictated Date/Time: 05/05/2017 4:03 PM
== END | disposition home or self-care (01) ==
LOC: C.CTS 15:49
PROVIDERS: ATTEND Internal Medicine Pulmonary Disease
DX: J98.4 Other disorders of lung (principal); R91.8 Other nonspecific abnormal finding of lung field; Z95.1 Presence of aortocoronary bypass graft

== ENCOUNTER → 2017-05-15 | Outpatient (CLI) | payer BC ==
[2017-05-15 15:24] LABS: INR 2.5 (0.9-1.1); PROTHROMBIN TIME (PATIENT) 25.6 SECONDS (9.0-12.0)
== END | disposition home or self-care (01) ==
LOC: C.LABSPEC 14:51
PROVIDERS: ATTEND Internal Medicine
DX: I48.0 Paroxysmal atrial fibrillation (principal); Z79.01 Long term (current) use of anticoagulants

== ENCOUNTER → 2017-05-16 | Outpatient (CLI) | payer BC ==
[~2017-05-16] MED LIST changes: -AMLO-110 PO; +AMLO5TAB3 PO; +LISI-726 PO; -LSN20 PO
--- NOTE | 2017-05-17 05:27 | PAP/PSG TECHNICIAN REPORT ---
[facility] Chief Of Vital Statistics Polysomnogram Report Study name: None Report date: 05/17/2017 Study date: 05/16/2017 Referring Physician: Dr. James Duncan DO Name: ERMIAS BELLA Interpreting Physician: James Duncan D.O. Date of : 1950 Chief Of Vital Statistics: JESI Whitney. Sex: Female Age: 67 StudyType: PSG Weight: 231 lbs Height: 67 years, Height 5' 5" Neck Circum:16.5in. BMI: 38.44 Medications: ASA 81mg, Nitrostat 0.4mg, Toprol XL 25mg, Fluoxetine HCL 20mg, Humalog 100unit/ml, Lantus 100unit/ml, Atorvastatin 20mg, Lansoprazole 15mg, Amlodipine Besylate 5mg, Amiodarone HCl 200mg, Furosemide 20mg, Potassium Chloride ER 10MEQ, Warfarin 5mg Patient History Study started on room air with no ETCO2 monitoring in room #6. 67 yr old female here tonight for a possible split psg. She has a history of severe restrictive lung disease and shortness of breath. She does snore. Her ESS=3/24. Neck circ=16.5inches Parameters Monitored NPSG: E1-M2, E2-M1, Fp1-M2, Fp2-M1, F3-M2, F4-M2, F4-M1, C3-M2, C4-M2, C4-M1, O1-M2, O2-M2, O2-M1, T3-M2, T4-M1, P3-M2, P4-M1, CHIN1, CHIN2, HR, EKG, Legs, PFLOW, SNOR, FLOW, CFLOW, Tidal Volume, THOR, ABDO, SpO2, PLTH, CPRESS, ETCO2 Wave, ETCO2, pH Sleep Architecture Sleep Stages Time at Lights Off 10:51:11 PM STAGES Time (min.) TST (%) Time at Lights On 5:17:11 AM Wake 100.0 -- Total Recording Time (TRT) 386.00 min. N1 22.5 8 Total Sleep Period (TSP) 359.5 min. N2 183.0 64 Total Sleep Time (TST) 286.0min. N3 42.0 15 Awake Time 100.0 min. REM 38.5 13 Wake after Sleep Onset 77.0 min. Sleep Efficiency (SE) 74 % Sleep Onset Latency (JOYCE) 23.0 min. Number of Stage 1 Shifts None Awakenings 17 Stage Changes 83 Number of REM periods 3 REM 38.5 13 REM Latency 119.5 min. NREM 247.5 87 Body Position Analysis Supine Right Left Side Prone Vertical Total Sleep Time (min.) 173.0 105.5 43.5 149.00 0.0 0.0 Total Sleep Time (%) 48% 37% 15% 52 0% N/A% Total Sleep Time REM (min.) 38.5 0.0 0.0 None 0.0 0.0 Total Sleep Time NREM (min.) 98.5 105.5 43.5 None 0.0 0.0 Intermittent Wake (min.) 36.0 50.2 13.9 None 0.0 0.0 Total Sleep Period (%) 46% None None None None None Arousals Myoclonus (PLM) * Events Count Index Events Count Index Spontaneous 16 3 Events Awake (PLMW) 114 68.4 Respiratory 0 0.0 Events Asleep w/ Arousal (PLMA) 32 6.7 PLM 32 7 Events Asleep w/o Arousal (PLMS) 228 47.8 Snoring 2 0 Total Asleep 260 54.5 Total 50 10 Total 374 58 Respiratory Analysis * CA OA MA CH H RERA Total Count 1 0 0 0 8 0 9 Index 0.2 0.0 0.0 0 1.7 0 1.9 Mean Duration 11.8 0.0 0.0 0.00 23.3 0.0 22.1 Longest Duration 11.8 0.0 0.0 0.00 0.0 0.0 34.8 Respiratory Event Summary Total Supine ~Supine Right Left Prone REM NREM Apneas Count 1 0 1 1 0 N/A 0 1 Index 0.2 0 0 0.6 0.0 N/A 0 0 Hypopneas (4% Desat) Count 8 7 1 0 1 N/A 5 3 Index 1.7 3.1 0 0.0 1.4 N/A 7.8 0.7 Apneas & All Hypopneas Count 9 7 2 1 1 N/A 5 4 Index 1.9 3 1 1 1 N/A 7.8 1.0 Respiratory Events (Die Maker Trim+All Hyp+RERA) Count 9 7 2 1 1 N/A 5 4 Index 1.9 3 1 0.6 1.4 N/A 7.8 1.0 Respiratory Related Arousal Count 0 7 0 0 0 N/A 0 0 Index 0.0 0 0 0 0 N/A 0 0 Snoring Analysis Supine Right Left Prone REM NREM Total Snore duration 3.2 min Snores count 40 96 32 N/A 4 164 168 Snore mean duration 1.2 Sec Snores index 18 55 44 N/A 6.2 39.8 35.2 TST with snoring (%) 1.1% Desaturation Event Summary: Minimum %SpO2 Event Count Mean/Min/Max Duration(sec.) Desaturation Index % Time In Bed > 90 20 24.6 / 10.5 / 54.8 4.2 74.3 86 - 90 7 18.9 / 6.3 / 44.3 4.3 25.6 81 - 85 0 N/A 0.0 0.1 76 - 80 0 N/A 0.0 0.0 71 - 75 0 N/A 0.0 0.0 66 - 70 0 N/A 0.0 0.0 61 - 65 0 N/A 0.0 0.0 56 - 60 0 N/A 0.0 0.0 51 - 55 0 N/A 0.0 0.0 < 50 0 N/A 0.0 0.0 Total REM NREM Awake <50% 0.0 min. 0.0 min. 0.0 min. 0.0 min. 51 - 60% 0.0 min. 0.0 min. 0.0 min. 0.0 min. 61 - 70% 0.0 min. 0.0 min. 0.0 min. 0.0 min. 71 - 80% 0.2 min. 0.2 min. 0.0 min. 0.0 min. 81 - 90% 99.0 min. 24.0 min. 61.8 min. 13.2 min. 91 - 100% 286.6 min. 14.3 min. 185.7 min. 86.5 min. Average 91 90 91 92 Minimum SpO2 77 77 87 85 Desaturation Event Index 3.9 10.9 1.5 7.8 # Desat. Events below 89% 8 5 1 2 Time(%) with Saturation below 89% 3.0 1.7 0.9 0.4 Time(min.) with Saturation below 89% 11.4 6.4 3.5 1.5 Time (mins) REM (mins) NREM (mins) % of TST SpO2 Below 90% 11 7 N4 12.2 SpO2 Below 88% 2 0 0 1 Heart Rate Analysis Min (bpm) Max (bpm) Average (bpm) Awake 69 127 86 NREM 69 93 84 REM 83 92 87 Overall 69 93 84 Supplemental O2 Values Minimum O2 level: None Value Start Time End Time Chief Of Vital Statistics Comments Mrs. Bella slept in the right and supine positions. No cardiac arrhythmia noted. Some limb movements were noted. No bruxism noted. Snoring was noted and scored as a 1 on a scale of 1 through 5. (0=no snoring, 5=snoring loud enough to be heard through a closed door or down the ta way). She did not use the restroom during the night. She stated that she slept a little worse than when at home. The final report will be interpreted and signed by a sleep physician. The completed physician report will then be placed in the patient medical record. Therapy (cm H2O) 0 TIB (min.) 386.0 TST (min.) 286.0 Sleep Onset (min.) 23.0 REM Onset From Sleep (min.) 119.5 Sleep Efficiency % 74 Wakefulness (%) 26 Wakefulness (min.) 100.0 NREM 1 (%) 8 NREM 1 (min.) 22.5 NREM 2 (%) 64 NREM 2 (min.) 183.0 NREM 3 (%) 15 NREM 3 (min.) 42.0 REM (%) 13 REM (min.) 38.5 # Arousals 50 Arousal Index 10 # Snore 168 Snore Index 35.2 AHI 1.9 AHI Supine 3 AHI Non-Supine 1 NREM AHI 1.0 REM AHI 7.8 RDI 1.9 # Obstructive Apnea 0 # Central Apnea 1 # Mixed Apnea 0 # Hypopneas 8 RERAs 0 Total Respiratory Events 10 Time Below SpO2 89% (min.) 9.9 Mean NREM SpO2 (%) 91 Mean REM SpO2 (%) 90 Mean Sleep SpO2 (%) 91 Min NREM SpO2 (%) 87 Min REM SpO2 (%) 77 Position Supine (min.) 173.0 Position Non-supine (min.) 149.0 LM Index Sleep 54.5 LM Index NREM 59.6 LM Index REM 21.8 Mean Heart Rate (bpm) 84 Min Heart Rate (bpm) 69
--- NOTE | 2017-05-21 18:07 | Sleep Study ---
Sleep Study Report Date of Service: 05/16/2017 Sleep Study Report CLINICAL DATA: The patient is a 67-year-old female. She has complaints of shortness of Breath. She does snore and have an elevated body mass index. She has a history of atrial fibrillation. This was an in-lab overnight polysomnography to rule out obstructive sleep apnea. SLEEP ARCHITECTURE: The total sleep period was 359.5 minutes. The total sleep time was 286 minutes. The sleep efficiency was reduced to 74 percent. The sleep latency was 23 minutes. Wake after sleep onset was increased to 77 minutes. The REM latency was 119.5 minutes. Sleep consisted of stage N1 8 percent, stage N2 64 percent, stage N3 15 percent , stage REM 13 percent. AROUSAL DATA: Patient had a total of 50 arousals including 16 spontaneous arousals, 32 PLM arousals, and 2 snoring arousals. The arousal index was 10. PLM DATA: The patient had a total of 260 periodic limb movements for a PLM index of 54.5. There were 32 arousals associated with limb movements for a PLM arousal index of 6.7. EKG: The underlying cardiac rhythm was normal sinus. The cardiac rates ranged from 69-93 beats per minute. The average heart rate was 84 beats per minute. No arrhythmias were noted. RESPIRATORY DATA: Patient had a total of 9 respiratory events including 1 central apnea and 8 hypopneas. Hypopneas were scored according to the 4 percent desaturation rule. The apnea was 11.8 seconds in length. The mean duration of the hypopneas was 23.3 seconds. The apnea-hypopnea index was 1.9. This would suggest no significant sleep apnea. OXIMETRY DATA: The average saturation for the night was 91 percent. The minimum saturation was 77 percent. The desaturation was very transient. It may have been artifactual. There was a total of 11.4 minutes with saturations less than 89 percent. [employer]AILER [employer]OL [employer]GRAPHS COMMENTS: Patient slept on the right and supine positions. No cardiac arrhythmia noted. Some limb movements were noted. No bruxism noted. Snoring was noted and scored as a 1 on a scale of 1 through 5. She did not use the restroom during the night. IMPRESSIONS: 1. No evidence of obstructive sleep apnea 2. Periodic limb movement disorder COMMENTS: The patient had a moderate decrease in sleep efficiency. There was somewhat of a decrease in REM sleep. She does take fluoxetine that can suppress REM sleep. She did not have any significant sleep apnea. There was a moderate increase in the frequency of periodic limb movements. At times these can be precipitated by medications such as fluoxetine. Clinical correlation is required. RECOMMENDATIONS: 1. The patient has an elevated body mass index of 38.44. A weight reduction program is advised. 2. If possible the patient should avoid sleeping in the supine position. There is typically less snoring and respiratory events while supine. During this study she was supine for 46 percent of the night. 3. Clinical correlation is required to determine if she is a candidate for pharmacologic therapy for the limb movement disorder. Copies To 1: Daniel Oreilly M.D.; James Duncan,
== END | disposition home or self-care (01) ==
LOC: C.NEUR 20:00
PROVIDERS: ATTEND Internal Medicine Pulmonary Disease
DX: J98.4 Other disorders of lung (principal); E66.9 Obesity, unspecified; G47.33 Obstructive sleep apnea (adult) (pediatric)

== ENCOUNTER → 2017-05-27 | Outpatient (CLI) | payer BC ==
[~2017-05-27] MED LIST changes: +AMLO-110 PO; -AMLO5TAB3 PO; -LISI-726 PO; +LSN20 PO
== END | disposition home or self-care (01) ==
LOC: C.LAB1850 11:56
PROVIDERS: ATTEND Internal Medicine Pulmonary Disease
DX: G25.81 Restless legs syndrome (principal)

== ENCOUNTER → 2017-06-02 | Outpatient (CLI) | payer BC ==
[2017-06-02 13:48] LABS: BASO % 0.8 %; BASO ABS # 0.07 K/uL (0-0.2); EOS % 3.1 %; EOS ABS # 0.28 K/uL (0-0.5); HEMATOCRIT 34.6 % (37-47); HEMOGLOBIN 10.4 g/dL (12.0-16.0); IG# 0.01 K/uL (0.00-0.02); LYMPH % 47.4 %; LYMPH ABS # 4.22 K/uL (1.2-3.4); MEAN CELL VOLUME 78.5 fL (80-100); MEAN CORPUSCULAR HEMOGLOBIN 23.6 pg (25-34); MEAN CORPUSCULAR HGB CONC 30.1 g/dl (32-36); MEAN PLATELET VOLUME 11.7 fL (7.4-10.4); MONO % 13.1 %; MONO ABS # 1.17 K/uL (0.11-0.59); NEUT % 35.5 %; NEUT ABS # 3.15 K/uL (1.4-6.5); PLATELET COUNT 348 K/uL (130-400); RED CELL DISTRIBUTION WIDTH CV 17.4 % (11.5-14.5); RED CELL DISTRIBUTION WIDTH SD 49.5 fL (36.4-46.3)
[2017-06-02 13:57] LABS: ALBUMIN 3.4 gm/dl (3.4-5.0); ALT/SGPT 27 U/L (12-78); AST/SGOT 22 U/L (15-37); BLOOD UREA NITROGEN 29 mg/dl (7-18); CALCIUM 8.8 mg/dl (8.5-10.1); CARBON DIOXIDE 27 mmol/L (21-32); CHOLESTEROL 124 mg/dl (0-200); CREATININE 1.98 mg/dl (0.60-1.20); GLUCOSE 165 mg/dl (70-99); POTASSIUM 5.1 mmol/L (3.5-5.1); SODIUM 136 mmol/L (136-145)
[2017-06-02 13:59] LABS: ALKALINE PHOSPHATASE 102 U/L (45-117); LDL CHOLESTEROL (DIRECT) 51 mg/dl
[2017-06-02 14:02] LABS: HEMOGLOBIN A1C 9.4 % (4.5-5.6)
[2017-06-02 14:21] LABS: INR 5.5 (0.9-1.1)
== END | disposition home or self-care (01) ==
LOC: C.LABSPEC 12:38
PROVIDERS: ATTEND Internal Medicine
DX: I10 Essential (primary) hypertension (principal); Z00.01 Encounter for general adult medical examination with abnormal findings; I25.10 Atherosclerotic heart disease of native coronary artery without angina pectoris; E78.5 Hyperlipidemia, unspecified; Z79.01 Long term (current) use of anticoagulants; Z51.81 Encounter for therapeutic drug level monitoring; I48.91 Unspecified atrial fibrillation

== ENCOUNTER → 2017-06-26 | Outpatient (CLI) | payer BC ==
[2017-06-26 14:34] LABS: INR 1.4 (0.9-1.1)
== END | disposition home or self-care (01) ==
LOC: C.LABSPEC 13:15
PROVIDERS: ATTEND Internal Medicine
DX: I48.91 Unspecified atrial fibrillation (principal); Z79.01 Long term (current) use of anticoagulants; Z51.81 Encounter for therapeutic drug level monitoring

== ENCOUNTER → 2017-09-09 | Outpatient (CLI) | payer BC ==
[2017-09-09 13:02] LABS: BASO % 0.8 %; BASO ABS # 0.07 K/uL (0-0.2); EOS % 4.7 %; EOS ABS # 0.42 K/uL (0-0.5); HEMOGLOBIN 10.6 g/dL (12.0-16.0); IG# 0.01 K/uL (0.00-0.02); LYMPH % 40.8 %; LYMPH ABS # 3.67 K/uL (1.2-3.4); MEAN CORPUSCULAR HEMOGLOBIN 24.5 pg (25-34); MEAN CORPUSCULAR HGB CONC 30.3 g/dl (32-36); MEAN PLATELET VOLUME 11.9 fL (7.4-10.4); MONO % 12.9 %; MONO ABS # 1.16 K/uL (0.11-0.59); NEUT % 40.7 %; NEUT ABS # 3.66 K/uL (1.4-6.5); PLATELET COUNT 362 K/uL (130-400); RED CELL DISTRIBUTION WIDTH SD 46.9 fL (36.4-46.3); WHITE BLOOD COUNT 8.99 K/uL (4.8-10.8)
[2017-09-09 13:11] LABS: BLOOD UREA NITROGEN 32 mg/dl (7-18); CALCIUM 9.1 mg/dl (8.5-10.1); CARBON DIOXIDE 27 mmol/L (21-32); CREATININE 1.99 mg/dl (0.60-1.20); GLUCOSE 174 mg/dl (70-99); INR 2.9 (0.9-1.1); POTASSIUM 4.8 mmol/L (3.5-5.1); SODIUM 136 mmol/L (136-145)
[2017-09-09 13:15] LABS: CHOLESTEROL 123 mg/dl (0-200); LDL CHOLESTEROL (DIRECT) 46 mg/dl
[2017-09-09 13:18] LABS: HEMOGLOBIN A1C 8.4 % (4.5-5.6)
== END | disposition home or self-care (01) ==
LOC: C.LABSPEC 12:30
PROVIDERS: ATTEND Internal Medicine
DX: E11.9 Type 2 diabetes mellitus without complications (principal); E78.5 Hyperlipidemia, unspecified; I25.10 Atherosclerotic heart disease of native coronary artery without angina pectoris; I10 Essential (primary) hypertension; D64.9 Anemia, unspecified; I48.91 Unspecified atrial fibrillation

== ENCOUNTER → 2017-10-06 | Outpatient (CLI) | payer BC ==
--- NOTE | 2017-10-07 13:18 | MAMMOGRAPHY REPORT ---
BILATERAL DIGITAL SCREENING MAMMOGRAM TOMOSYNTHESIS WITH CAD: 10/06/2017 CLINICAL HISTORY: Routine screening. Patient has no complaints. TECHNIQUE: Breast tomosynthesis in addition to standard 2D mammography was performed. Current study was also evaluated with a Computer Aided Detection (CAD) system. COMPARISON: Comparison is made to exams dated: 07/22/2016 mammogram, 03/07/2015 mammogram, 02/18/2014 m ammogram, 08/11/2012 mammogram, 02/18/2011 mammogram - [facility], and 11/02/2008. BREAST COMPOSITION: There are scattered areas of fibroglandular density in both breasts. FINDINGS: There are mild vascular calcifications in the breasts. A few scattered benign rim calcific ations. No suspicious mass, architectural distortion or cluster of microcalcifications is seen. IMPRESSION: ACR BI-RADS CATEGORY 1: NEGATIVE There is no mammographic evidence of malignancy. A 1 year screening mammogram is recommended. The pa tient will receive written notification of the results. Approximately 10% of breast cancers are not detected with mammography. A negative mammographic report should not delay biopsy if a clinically suggestive mass is present. Mary Darden M.D. ay/:10/07/2017 07:47:19 Insurance Claims Assistant: Carlene LOPEZ(Matt)(Elle)([place]), [facility] letter sent: Normal 1/2 BI-RADS Code: ACR BI-RADS Category 1: Negative
== END | disposition home or self-care (01) ==
LOC: C.MAMM 11:41
PROVIDERS: ATTEND Internal Medicine
DX: Z12.31 Encounter for screening mammogram for malignant neoplasm of breast (principal)

== ENCOUNTER → 2018-01-07 | Outpatient (CLI) | payer BC ==
[~2018-01-07] MED LIST changes: -AMLO-110 PO; +AMLO5TAB3 PO; +LISI-726 PO; -LSN20 PO
[2018-01-07 13:58] LABS: BASO % 0.8 %; BASO ABS # 0.07 K/uL (0-0.2); EOS % 3.5 %; EOS ABS # 0.29 K/uL (0-0.5); HEMATOCRIT 36.6 % (37-47); HEMOGLOBIN 10.8 g/dL (12.0-16.0); IG# 0.01 K/uL (0.00-0.02); LYMPH ABS # 2.56 K/uL (1.2-3.4); MEAN CELL VOLUME 86.5 fL (80-100); MEAN CORPUSCULAR HEMOGLOBIN 25.5 pg (25-34); MEAN CORPUSCULAR HGB CONC 29.5 g/dl (32-36); MEAN PLATELET VOLUME 12.3 fL (7.4-10.4); MONO % 11.3 %; MONO ABS # 0.93 K/uL (0.11-0.59); NEUT % 53.3 %; PLATELET COUNT 315 K/uL (130-400); RED CELL DISTRIBUTION WIDTH CV 18.1 % (11.5-14.5); RED CELL DISTRIBUTION WIDTH SD 57.1 fL (36.4-46.3); WHITE BLOOD COUNT 8.26 K/uL (4.8-10.8)
[2018-01-07 14:17] LABS: ALBUMIN 3.6 gm/dl (3.4-5.0); ALKALINE PHOSPHATASE 110 U/L (45-117); ALT/SGPT 25 U/L (12-78); AST/SGOT 19 U/L (15-37); BLOOD UREA NITROGEN 32 mg/dl (7-18); CALCIUM 8.5 mg/dl (8.5-10.1); CARBON DIOXIDE 26 mmol/L (21-32); CHOLESTEROL 109 mg/dl (0-200); CREATININE 1.86 mg/dl (0.60-1.20); GLUCOSE 122 mg/dl (70-99); LDL CHOLESTEROL (DIRECT) 43 mg/dl; POTASSIUM 5.2 mmol/L (3.5-5.1); SODIUM 141 mmol/L (136-145); TOTAL PROTEIN 7.1 gm/dl (6.4-8.2)
[2018-01-08 05:52] LABS: HEMOGLOBIN A1C 7.5 % (4.5-5.6)
== END | disposition home or self-care (01) ==
LOC: C.LABSPEC 13:18
PROVIDERS: ATTEND Internal Medicine
DX: D64.9 Anemia, unspecified (principal); I48.91 Unspecified atrial fibrillation; I25.10 Atherosclerotic heart disease of native coronary artery without angina pectoris; E11.65 Type 2 diabetes mellitus with hyperglycemia; E78.5 Hyperlipidemia, unspecified

== ENCOUNTER 2019-03-22 06:56 | Observation (INO) ==
[2019-03-22] MEDS ORDERED: MIDAZOLAM HCL 1 MG/ML 2ML VIAL ONE (07:26)
[2019-03-22] MEDS ORDERED: NiCARDipine HCL INJ 2.5 MG/ML 10 ML AMP ONE (07:26)
[2019-03-22] MEDS ORDERED: HEPARIN (PORCINE) 1000 UNIT/ML 10 ML (CATH LAB USE ONLY) ONE (07:26)
[2019-03-22] MEDS ORDERED: fentaNYL citrate 100 MCG/2 ML VIAL ONE (07:26)
[2019-03-22] MEDS ORDERED: NITROGLYCERIN/D5W 100MCG/ML 20ML SYR ONE (07:27)
--- NOTE | 2019-03-22 08:09 | Pre Anesthesia Assessment ---
Date of Service March 22, 2019 Pre Sedation Assessment Vital Signs Temp Pulse Resp BP Pulse Ox 03/22/19 07:05 98.6 F 78 22 168/67 H 96 Cardiovascular RRR, no murmur, no edema Respiratory normal respiratory effort, lungs clear to auscultation Pre-Sedation Airway Assessment Smoking Status: Never smoker Hx Sleep Apnea: No Hx Difficult Intubation: No Short, Thick Neck: No Thyromental Distance: > or= 3.5 Finger Breadths Oral Cavity: + WNL Mallampati Class: III ASA: ASA3 NPO Status Date of Last Intake of Fluids: 03/21/19 Time of Last Intake of Fluids: 22:00 Date of Last Intake of Solid Food: 03/21/19 Time of Last Intake of Solid Foods: 22:00 Procedure Planning Contraindications for Sedation: none Current Medications Reviewed: Yes Notes The planned sedation has been discussed with the patient. Informed Consent was obtained. I have identified the patient, determined the appropriateness of sedation and have assessed the patient immediately prior to the procedure. All medicine(s) and interventions are by my order.
--- NOTE | 2019-03-22 08:10 | History & Physical Bridge Note ---
Date of Service March 22, 2019 History & Physical Bridge Note I have examined the patient, reviewed the History & Physical and in the interval since the performance of the History & Physical I have noted the following changes of clinical significance: no changes noted
--- NOTE | 2019-03-22 09:45 | Post Anesthesia Assessment ---
Date of Service March 22, 2019 Post Sedation Assessment Vital Signs Temp Pulse Resp BP Pulse Ox 03/22/19 09:30 80 20 165/78 H 90 03/22/19 07:05 98.6 F 78 22 168/67 H 96 Recovery Score Activity: Moves 4 extremities Respiration: Deep Breath/Cough Circulation: +/-20% PreAnes Value Consciousness: Fully Awake Oxygen Saturation: > 92% On Room Air Post Anesthesia Score: 10 Discharge Sedation Level of Care: Fast Track Phase II Post Sedation Plan On clinical assessment, the patient appears to have tolerated the sedation without complications. Patient is recovering as anticipated. Patient will continue to be monitored by nursing and may be discharged when sedation discharge criteria are met per below protocol. Upon Completions of procedure and additional 15 minutes continue every 5 minute vital signs and the P.A.R. score; then discharge to a Phase I or Fast Track to Phase II per the following guidelines: * Discharge Patient to appropriate Phase II area if PAR is 8 or greater or return to pre- procedure baseline. The post - procedure orders will be as directed. * If PAR score is less than 8 or not return to pre-procedure baseline then patient will follow Phase I monitoring till PAR is reached for Phase II. The Phase I may be done in procedure room or may call to secure a Phase I area. * If naloxone or flumazenil are used for reversal, hold in Phase I for continue d monitoring from when last reversal dose was given for a minimum of 60 minutes or longer pending the nurse and/or physician discretion of patient condition before discharge to Phase II. Please call the Sedation Physician to re-evaluate and complete post-note for discharge to Phase II area. Do NOT discharge from procedure sedation or Phase 1 until post- sedation evaluation note is complete by procedure /sedation MD Sedation Discharge Instructions to be given to the patient at discharge to home.
--- NOTE | 2019-03-22 09:46 | Cardiac Catheterization ---
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 Cardiac Status Clinical evaluation leading to the procedure CAD Presenation: Stable angina Anginal Classification: CCS III Heart Failure: No Cardiogenic Shock within 24 Hours: No Cardiac Arrest within 24 Hours: No Imaging Studies Past 6 Months: No Stress Studies Past 6 Months: No Diagnostic Physicians Name: David Robledo MD Status: Elective Closure Device Percutaneous Entry Location: Ulnar Closure Device: Radial Band Recommendations: PCI without planned CABG PCI Indication: Angina despite med therapy Lesion Segment Name: ostial diagonal Culprit Artery: Yes Stenosis Prior to Rx (%): 95 Chronic Total Occlusion: No IVUS: No FFR: No Pre-Procedure TRESA Flow: 3 Previously Treated Lesion: Timeframe: greater than 2 years Treated with Stent: Yes In-Stent Restenosis: Yes Stent Type: GLENN Yes Lesion Complexity: Non-High/Non-C Lesion Length (mm): 15 Thrombus Present: No Bifurcation Lesion: Yes Guidewire Across Lesion: Stenosis Post-Procedure (%): 0 Post-Procedure TRESA Flow: 3 Devices(s) Deployed: Yes Yes Intraprocedure Events Significant Disection: No Perforation: No Cardiac Cath Procedure Full Procedure Date March 22, 2019 Pre-Procedure Diagnosis Pre-Procedure Diagnosis: Angina AUC Score AUC Score: 7 Post-Procedure Diagnosis Post-Procedure Diagnosis: Severe CAD and Unsuccessful PCI Procedure(s) Performed Procedure(s) Performed: Coronary Angiography and Left Heart Cath Oceanography Professor David Robledo MD Dairy Helper(s) [place] Estimated Blood Loss Estimated Blood Loss: 15 Medication(s) Medication(s): Clopidogrel, Fentanyl, Heparin, Lidocaine 1%, Nicardipine, Nitroglycerin and Versed Summary of Findings Indication: Refractory angina Access: 6FR left ulnar artery Catheters: JL4, JR4, DAREN, EBU 3.5 guide Findings: LM -luminal irregularities LAD -40-50% stenosis proximally prior to bifurcation with first diagonal, mid LAD stent patent with mild in-stent restenosis, late-mid LAD subtotally occluded with competitive flow after 2nd diagonal. -First diagonal stent patent with 95% ostial stenosis -Distal LAD after DAI anastomosis widely patent without significant disease. Circumflex -moderate caliber vessel with luminal irregularities. High small OM1 with diffuse severe disease. 20% proximal OM 3 disease RCA -dominant, large caliber vessel, 20% proximal disease, distal luminal irregularities, proximal right PDA with 30-40% stenosis SVG to first diagonalknown to be occluded DAI-LADwidely patent LVEDP -12 -- PCI of LAD into diagonal -- LM cannulated with EBU 3.5 guide Flight Operations Inspector 50 wire placed into distal 1st diagonal Ostial diagoal dilated with 1.5, 2.5 balloons. Single GLENN placed from proximal LAD into 1st diagonal (2.75 x 23 Xience Emely). Stent post-dilated with 3.0 NC IC vasodilators administered for spasm Post procedure TIMI3 flow. Stent well expanded. No apparent coronary com plications. Arterial Closure: TR band Summary: 1. Severe [place] multivessel coronary artery disease - 40-50% proximal LAD, chronic subtotal mid LAD occlusion. -95% ostial in-stent restenosis of first diagonal -Small high OM1 with severe diffuse disease. 2. Known occluded SVG to first diagonal. 3. Patent DAI to LAD 4. Normal intracardiac filling pressure 5. Succesful PCI of proximal LAD into 1st diagonal with single GLENN (2.75 x 23 Xience Emely; post-dilated with 3.0 NC). Recommnendations: - Continue DAPT with ASA, clopidogrel indefinitely - Continue current antianginal therapy an ASCVD risk factor modification. - Cardiac rehab Hemodynamics Rest Ao:: 126/43/104 Final Ao: 114/36/76 LV: 123/12 Recommendations Recommendations: PCI without planned CABG Specimens Specimens: None Radiation Exposure (mGy) 2382 Contrast (mls) 120 Fluids (cc crystalloids) Fluids (cc crystalloids): 100 Drains Drains: none Anesthesia moderate Procedural Complication(s) None Disposition Recovery Room\PACU I attest to the content of the Intraoperative Record and any orders documented therein. Any exceptions are noted below.
[2019-03-22] MEDS ORDERED: ONDANSETRON INJ 2 MG/ML 2 ML VIAL IV PRN (10:32)
[2019-03-22] MEDS ORDERED: ACETAMINOPHEN 325 MG TAB PO PRN (10:32)
[2019-03-22] MEDS ORDERED: HYDROCODONE/ACETAMOPHEN 5/325MG TAB PO PRN (10:35)
[2019-03-22] MEDS ORDERED: NITROGLYCERIN SL 0.4 MG/TAB TAB SL PRN (10:35)
[2019-03-22] MEDS ORDERED: GLUCOSE 10 TABS/TUBE PO PRN (10:39)
[2019-03-22] MEDS ORDERED: DEXTROSE 50% 50 ML SYRINGE IV PRN (10:39)
[2019-03-22] MEDS ORDERED: CARBOHYDRATES FOR HYPOGLYCEMIA PO PRN (10:39)
[2019-03-22] MEDS ORDERED: GLUCAGON FOR INJ 1 MG VIAL SQ PRN (10:39)
[2019-03-22] MEDS ORDERED: GLUCOSE 40% GEL 15 GM TUBE PO PRN (10:39)
[2019-03-22] MEDS ORDERED: SODIUM CHLORIDE 0.9% 1000ML 1,000 ML IV SCH (10:45)
[2019-03-22] MEDS ORDERED: LANTUS PER UNIT CHARGE SQ SCH (10:45)
[2019-03-22] MEDS ORDERED: PHARMACY GLYCEMIC MGMT CONSULT PRN (15:02)
[2019-03-22] MEDS: INSULIN ASPART 100 UNITS/ML 3 ML PEN SC SCH ×3 (15:10→21:19)
[2019-03-22] MEDS ORDERED: INSULIN GLARGINE SOLOSTAR 100 UNITS/ML 3 ML PEN SC SCH (18:00)
[2019-03-22] MEDS: MAGNESIUM OXIDE 400 MG TAB PO SCH (20:42)
[2019-03-22] MEDS: FERROUS GLUCONATE 324 MG TAB PO SCH (20:42)
[2019-03-22] MEDS: FLUOXETINE HCL 20 MG CAP PO SCH (20:42)
[2019-03-22] MEDS ORDERED: PRAMIPEXOLE DIHYDROCHLO 0.5 MG TAB PO SCH (21:00)
[2019-03-23] MEDS: INSULIN ASPART 100 UNITS/ML 3 ML PEN SC SCH ×3 (00:15→08:42)
[2019-03-23 03:40] VITALS: TEMP 98.4
[2019-03-23 05:29] LABS: Basophils # (auto) 0.04 K/uL (0-0.2); Basophils % (auto) 0.4 %; Eosinophils # (auto) 0.52 K/uL (0-0.5); Eosinophils % (auto) 4.8 %; Hematocrit (blood only) 35.8 % (37-47); Hemoglobin 11.2 g/dL (12.0-16.0); Immature Granulocytes # (auto) 0.03 K/uL (0.00-0.02); Immature Granulocytes % (auto) 0.3 %; Lymphocytes # (auto) 3.35 K/uL (1.2-3.4); Lymphocytes % (auto) 30.9 %; Mean Corpuscular Hemoglobin 30.5 pg (25-34); Mean Corpuscular Hgb Conc 31.3 g/dL (32-36); Mean Corpuscular Volume 97.5 fL (80-100); Mean Platelet Volume 10.9 fL (7.4-10.4); Monocytes # (auto) 1.47 K/uL (0.11-0.59); Monocytes % (auto) 13.6 %; Neutrophils # (auto) 5.43 K/uL (1.4-6.5); Platelet Count 283 K/uL (130-400); RDW Coefficient of Variation 12.8 % (11.5-14.5); RDW Standard Deviation 45.5 fL (36.4-46.3); Red Blood Count 3.67 M/uL (4.2-5.4); White Blood Count 10.84 K/uL (4.8-10.8)
[2019-03-23 06:06] LABS: BUN Creatinine Ratio 18.8 (10-20); Creatinine Clr Calc Pharmacy 45.4 ml/min; Est GFR (African American) 42.2; Est GFR (Non-African American) 36.4; Potassium 4.8 mmol/L (3.5-5.1)
[2019-03-23 07:57] VITALS: BP 117/75; O2SAT 95
[2019-03-23] MEDS: FERROUS GLUCONATE 324 MG TAB PO SCH (08:43)
[2019-03-23] MEDS: MAGNESIUM OXIDE 400 MG TAB PO SCH (08:43)
[2019-03-23] MEDS: FLUOXETINE HCL 20 MG CAP PO SCH (08:44)
[2019-03-23] MEDS ORDERED: ASPIRIN 81 MG ECTAB PO SCH (09:00)
[2019-03-23] MEDS ORDERED: METOPROLOL SUCC 25MG EXT REL TAB PO SCH (09:00)
[2019-03-23] MEDS ORDERED: MULTIVITAMIN TAB PO SCH (09:00)
[2019-03-23] MEDS ORDERED: PANTOprazole 40 MG TAB PO SCH (09:00)
[2019-03-23] MEDS ORDERED: CYANOCOBALAMIN (VITAMIN B-12) 2,500 MCG TAB.SUBL SL SCH (09:00)
[2019-03-23] MEDS ORDERED: CLOPIDOGREL BISULFATE 75 MG TAB PO SCH (09:00)
[2019-03-23] MEDS ORDERED: ISOSORBIDE MONO EXTENDED REL 30 MG TABCR PO SCH (09:00)
[2019-03-23] MEDS ORDERED: ATORVASTATIN 40 MG TAB PO SCH (09:00)
[2019-03-23] MEDS ORDERED: LISINOPRIL 20 MG TAB PO SCH (09:00)
[2019-03-23 09:24] VITALS: PULSE 74
[2019-03-23] MEDS ORDERED: ENOXAPARIN INJ 40 MG/0.4 ML SYR SQ SCH (10:45)
[2019-03-23] MEDS ORDERED: INSULIN GLARGINE SOLOSTAR 100 UNITS/ML 3 ML PEN SC SCH (21:00)
--- NOTE | 2019-03-25 17:50 | Discharge Summary ---
Date of Service March 25, 2019 Admission HPI Per Admitting Provider Patient with accelerating angina, CCS class III symptoms despite maximal medical therapy. She has known severe in-stent restenosis involving her first diagonal. Unfortunately vein graft to diagonal shown to be occluded on last catheterization 1 year ago. Symptoms severely limiting for patient and wishes to proceed with PCI. Specialty Data Cardiology 1. Severe circle multivessel coronary artery disease - 40-50% proximal LAD, chronic subtotal mid LAD occlusion. -95% ostial in-stent restenosis of first diagonal -Small high OM1 with severe diffuse disease. 2. Known occluded SVG to first diagonal. 3. Patent DAI to LAD 4. Normal intracardiac filling pressure 5. Successful PCI of proximal LAD into 1st diagonal with single GLENN (2.75 x 23 Xience Emely; post-dilated with 3.0 NC). Discharge Data Consultations 03/22/19 10:35 Consult Cardiac Rehabilitation Routine Procedures Performed Operation Date: 03/22/19 08:00 Actual Procedures s Cineradiography w/Routine Exam - Tristan Robledo MD p Cath, Right and Left with Grafts - Tristan Robledo MD s Drug Eluting Stent SGl Vessel - Tristan Robledo MD Hospital Course (1) CAD (coronary artery disease): Patient underwent planned cardiac catheterization via left ulnar artery. DAI to LAD found to be patent. Circumflex/RCA without new disease. Moderate proximal LAD disease with severe 95% ostial in-stent restenosis of first diagonal. Underwent PCI of proximal LAD into diagonal with a single drug-elutin g stent. Procedure uncomplicated. Patient admitted to telemetry service for observation. She remained hemodynamically and electrically stable overnight. No recurrent chest pain. On day of discharge was feeling well with less shortness of breath walking around her room. No access site complications. Post procedure labs unchanged. Discharged home on DAPT with aspirin, clopidogrel. Follow-up with cardiology in 2 to 3 weeks. Discharge Instructions Home Medications Lantus U-100 Insulin 35 unit SUBCUT AMPM 02/16/18 [History Confirmed 03/18/19] Probiotic 1 cap PO QAM 02/16/18 [History Confirmed 03/18/19] ascorbic acid (vitamin C) 1,000 mg PO QAM 02/16/18 [History Confirmed 03/18/19] aspirin [Aspir-81] 81 mg PO QAM 02/16/18 [History Confirmed 03/18/19] fluoxetine 20 mg PO BID 02/16/18 [History Confirmed 03/18/19] insulin lispro [Humalog U-100 Insulin] 12 unit SUBCUT BIDM 02/16/18 [History Confirmed 03/18/19] lansoprazole 15 mg PO QAM 02/16/18 [History Confirmed 03/18/19] magnesium oxide 400 mg PO BID 02/16/18 [History Confirmed 03/18/19] metoprolol succinate 25 mg PO QAM 02/16/18 [History Confirmed 03/18/19] multivitamin [Multiple Vitamins] 1 tab PO QAM 02/16/18 [History Confirmed 03/18/19] pramipexole 0.5 mg PO HS 02/16/18 [History Confirmed 03/18/19] zinc 50 mg PO QAM 02/16/18 [History Confirmed 03/18/19] clopidogrel 75 mg PO QAM #32 tab 02/18/18 [Rx Confirmed 03/18/19] isosorbide mononitrate 30 mg PO QAM #32 tab 02/18/18 [Rx Confirmed 03/18/19] atorvastatin 40 mg PO QAM 05/15/18 [History Confirmed 03/18/19] hydrocodone-acetaminophen [Phillips] 1 - 2 tab PO Q6H PRN #30 tab 05/25/18 [Rx Confirmed 03/18/19] acetaminophen 325 mg tablet 650 mg PO Q6H PRN tab 03/18/19 [History Confirmed 03/18/19] cyanocobalamin (vit B-12) 5,000 mcg disintegrating tablet 5,000 mcg PO DAILY tab 03/18/19 [History Confirmed 03/18/19] ferrous gluconate 324 mg (38 mg iron) tablet 324 mg PO BID tab 03/18/19 [History Confirmed 03/18/19] furosemide 40 mg tablet 40 mg PO DAILY tab 03/18/19 [History Confirmed 03/18/19] lisinopril 20 mg tablet 20 mg PO QAM tab 03/18/19 [History Confirmed 03/18/19] nitroglycerin 0.4 mg sublingual tablet 0.4 mg SL Q5M PRN #25 tab 03/18/19 [History Confirmed 03/18/19] potassium chloride ER 10 mEq tablet,extended release 10 meq PO DAILY #30 tab 03/18/19 [History Confirmed 03/18/19]
== END 2019-03-23 09:48 | disposition home or self-care (01) ==
LOC: CC 06:56 → 2E 06:56

== ENCOUNTER 2019-12-08 11:18 | Inpatient (IN) ==
[2019-12-08] MEDS ORDERED: LORazepam 0.5 MG/1 ML VIAL IV STA (11:31)
--- NOTE | 2019-12-08 11:57 | XRay Report ---
XR chest 1V portable HISTORY: 69 years-old Female Chest Pain acute atypical chest pain COMPARISON: Chest radiograph 03/03/2019 TECHNIQUE: Portable AP view of the chest FINDINGS: Cardiac silhouette is enlarged. Prior median sternotomy. Chronic interstitial coarsening. No pneumoth orax, large pleural effusion or overt pulmonary edema. No airspace consolidation typical for pneumoni a. Degenerative changes of the shoulders and spine. Probable neck list projects over the neck. IMPRESSION: Cardiomegaly without acute process. ACT 112: Negative or not required by law. The above report was generated using voice recognition software. It may contain grammatical, syntax o r spelling errors. Electronically signed by: Steve Fletcher M.D. 12/08/2019 11:56 AM
[2019-12-08 12:31] LABS: Basophils # (auto) 0.05 K/uL (0-0.2); Basophils % (auto) 0.3 %; Eosinophils # (auto) 0.23 K/uL (0-0.5); Eosinophils % (auto) 1.6 %; Hematocrit (blood only) 41.5 % (37-47); Hemoglobin 13.3 g/dL (12.0-16.0); Immature Granulocytes # (auto) 0.04 K/uL (0.00-0.02); Immature Granulocytes % (auto) 0.3 %; Lymphocytes # (auto) 3.01 K/uL (1.2-3.4); Mean Corpuscular Hemoglobin 29.9 pg (25-34); Mean Corpuscular Volume 93.3 fL (80-100); Mean Platelet Volume 12.2 fL (7.4-10.4); Monocytes # (auto) 1.68 K/uL (0.11-0.59); Monocytes % (auto) 11.7 %; Neutrophils # (auto) 9.29 K/uL (1.4-6.5); Neutrophils % (auto) 65.1 %; Platelet Count 287 K/uL (130-400); RDW Coefficient of Variation 13.3 % (11.5-14.5); RDW Standard Deviation 45.8 fL (36.4-46.3); Red Blood Count 4.45 M/uL (4.2-5.4)
[2019-12-08 12:41] LABS: Partial Thromboplastin Time 28.1 Seconds (21.0-31.0); Prothrombin Time 10.8 Seconds (9.0-12.0)
[2019-12-08 12:45] LABS: Albumin Level 3.4 gm/dl (3.4-5.0); BUN Creatinine Ratio 16.4 (10-20); Calcium 8.9 mg/dl (8.5-10.1); Creatinine Clr Calc Pharmacy 34.8 ml/min; Est GFR (African American) 30.8; Est GFR (Non-African American) 26.6; Potassium 4.9 mmol/L (3.5-5.1)
--- NOTE | 2019-12-08 12:51 | Electrocardiogram Report ---
Test Reason : Blood Pressure : / mmHG Vent. Rate : 120 BPM Atrial Rate : 120 BPM P-R Int : 224 ms QRS Dur : 118 ms QT Int : 314 ms P-R-T Axes : 000 -54 102 degrees QTc Int : 443 ms Sinus tachycardia with 1st degree A-V block with frequent Premature ventricular complexes Left axis deviation Incomplete left bundle block T wave abnormality, consider lateral ischemia Abnormal ECG When compared with ECG of 18-MAR-2018 08:12, Premature ventricular complexes are now Present Incomplete left bundle block is now Present Confirmed by Reynaldo Roe ([id number]) on 12/08/2019 12:51:08 PM Referred By: ER Confirmed By:Reynaldo Roe
[2019-12-08 13:01] LABS: Albumin Globulin Ratio 0.9 (0.9-2); Total Protein 7.4 gm/dl (6.4-8.2); Troponin I 0.193 ng/ml (0-0.045)
[2019-12-08] MEDS ORDERED: SODIUM CHLORIDE 0.9% 1000ML 1,000 ML IV ONE (13:14)
[2019-12-08] MEDS ORDERED: HEPARIN SODIUM/DEXTROSE 25,000 UNITS/500 ML BAG IV SCH (13:15)
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
[2019-12-08] MEDS ORDERED: HEPARIN SOD 5,000 UNIT/0.5 ML VIAL ONE (13:48)
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
[2019-12-08] MEDS ORDERED: METOPROLOL TARTRATE 1 MG/ML VIAL IV STA (15:19)
[2019-12-08] MEDS ORDERED: MoRPHine SULFATE 4 MG/ML 1 ML CARP\\VIAL IV STA (15:20)
[2019-12-08] MEDS ORDERED: METOPROLOL TARTRATE 25 MG TAB PO STA (15:23)
[2019-12-08] MEDS ORDERED: ONDANSETRON INJ 2 MG/ML 2 ML VIAL IV PRN (15:27)
[2019-12-08] MEDS ORDERED: ONDANSETRON INJ 2 MG/ML 2 ML VIAL ONE ×2 (15:39→15:52)
--- NOTE | 2019-12-08 16:04 | Electrocardiogram Report ---
Test Reason : Blood Pressure : / mmHG Vent. Rate : 105 BPM Atrial Rate : 105 BPM P-R Int : 200 ms QRS Dur : 118 ms QT Int : 356 ms P-R-T Axes : 033 -56 107 degrees QTc Int : 470 ms Sinus tachycardia Left anterior fascicular block Incomplete left bundle block T wave abnormality, consider lateral ischemia Abnormal ECG When compared with ECG of 08-DEC-2019 11:28, Premature ventricular complexes are no longer Present Confirmed by Reynaldo Roe ([id number]) on 12/08/2019 4:04:08 PM Referred By: REFERRED SELF Confirmed By:Reynaldo Roe
[2019-12-08 16:21] LABS: Hematocrit (blood only) 38.9 % (37-47); Hemoglobin 12.3 g/dL (12.0-16.0); Mean Corpuscular Hemoglobin 29.6 pg (25-34); Mean Corpuscular Hgb Conc 31.6 g/dL (32-36); Mean Corpuscular Volume 93.5 fL (80-100); Mean Platelet Volume 12.2 fL (7.4-10.4); Platelet Count 255 K/uL (130-400); RDW Coefficient of Variation 13.4 % (11.5-14.5); RDW Standard Deviation 45.8 fL (36.4-46.3); Red Blood Count 4.16 M/uL (4.2-5.4)
[2019-12-08] MEDS ORDERED: HEPARIN (PORCINE) 1000 UNIT/ML 10 ML (CATH LAB USE ONLY) ONE (16:21)
[2019-12-08] MEDS ORDERED: NiCARDipine HCL INJ 2.5 MG/ML 10 ML AMP ONE (16:22)
[2019-12-08] MEDS ORDERED: MIDAZOLAM HCL 1 MG/ML 2ML VIAL ONE (16:22)
[2019-12-08] MEDS ORDERED: NITROGLYCERIN/D5W 100MCG/ML 20ML SYR ONE (16:22)
[2019-12-08] MEDS ORDERED: fentaNYL citrate 100 MCG/2 ML VIAL ONE (16:22)
[2019-12-08 16:43] LABS: Magnesium 2.2 mg/dl (1.8-2.4); Troponin I 0.764 ng/ml (0-0.045)
[2019-12-08 17:00] LABS: ALC (manual) 5.69 K/uL (1.2-3.4); ANC (manual) 8.41 K/uL (1.4-6.5); Acanthocytes 1+; Basophils # (manual) 0.14 K/uL (0-0.2); Basophils % (manual) 0.9 %; Eosinophils # (manual) 0.14 K/uL (0-0.5); Eosinophils % (manual) 0.9 %; Howell-Jolly Bodies 1+; Large Granular Lymph # (manua 3.12 K/uL; Lymphocytes # (manual) 2.57 K/uL (1.2-3.4); Lymphocytes % (manual) 16.5 %; Monocytes # (manual) 1.22 K/uL (0.11-0.59); Monocytes % (manual) 7.8 %; Neutrophils # (manual) 8.41 K/uL (1.4-6.5); Neutrophils % (manual) 53.9 %; Pappenheimer Bodies 1+
--- NOTE | 2019-12-08 17:25 | Post Anesthesia Assessment ---
Date of Service December 08, 2019 Post Sedation Assessment Vital Signs Temp Pulse Pulse Resp BP BP Pulse Ox 12/08/19 16:31 82 16 101/60 98 12/08/19 16:24 97 H 16 82/54 L 98 12/08/19 15:52 90 21 73/45 L 97 12/08/19 15:46 89 26 H 84/55 L 97 12/08/19 15:32 111 H 126/81 12/08/19 14:40 107 H 20 122/84 96 12/08/19 14:05 104 H 16 127/90 96 12/08/19 12:23 121 H 16 90/62 L 97 12/08/19 11:22 98.1 F 120 H 18 152/89 H 95 Recovery Score Activity: Moves 4 extremities Respiration: Deep Breath/Cough Circulation: +/-20% PreAnes Value Consciousness: Fully Awake Oxygen Saturation: O2 needed for >90% Discharge Sedation Level of Care: Fast Track Phase II Post Sedation Plan On clinical assessment, the patient appears to have tolerated the sedation w ithout complications. Patient is recovering as anticipated. Patient will continue to be monitored by nursing and may be discharged when sedation discharge criteria are met per below protocol. Upon Completions of procedure up to 15 minutes continue every 5 minute vital signs and the P.A.R. score; then discharge to a Phase I or Fast Track to Phase II per the following guidelines: * Discharge Patient to appropriate Phase II area if PAR is 8 or greater or return to pre- procedure baseline. The post - procedure orders will be as directed. * If PAR score is less than 8 or not return to pre-procedure baseline then patient will follow Phase I monitoring till PAR is reached for Phase II. The Phase I may be done in procedure room or may call to secure a Phase I area. * If naloxone or flumazenil are used for reversal, hold in Phase I for continued monitoring from when last reversal dose was given for a minimum of 60 minutes or longer pending the nurse and/or physician discretion of patient condition before discharge to Phase II. Please call the Sedation Physician to re-evaluate and complete post-note for discharge to Phase II area. Do NOT discharge from procedure sedation or Phase 1 until post- sedation evaluation note is complete by procedure /sedation MD Sedation Discharge Instructions to be given to the patient at discharge to home.
--- NOTE | 2019-12-08 17:25 | Pre Anesthesia Assessment ---
Date of Service December 08, 2019 Pre Sedation Assessment Vital Signs Temp Pulse Pulse Resp BP BP Pulse Ox 12/08/19 16:31 82 16 101/60 98 12/08/19 16:24 97 H 16 82/54 L 98 12/08/19 15:52 90 21 73/45 L 97 12/08/19 15:46 89 26 H 84/55 L 97 12/08/19 15:32 111 H 126/81 12/08/19 14:40 107 H 20 122/84 96 12/08/19 14:05 104 H 16 127/90 96 12/08/19 12:23 121 H 16 90/62 L 97 12/08/19 11:22 98.1 F 120 H 18 152/89 H 95 Cardiovascular RRR, no murmur, no edema Respiratory normal respiratory effort, lungs clear to auscultation Pre-Sedation Airway Assessment Smoking Status: Never smoker Hx Sleep Apnea: No Hx Difficult Intubation: No Thyromental Distance: > or= 3.5 Finger Breadths Mallampati Class: III ASA: ASA3 Procedure Planning Contraindications for Sedation: none Current Medications Reviewed: Yes Notes The planned sedation has been discussed with the patient. Informed Consent was obtained. I have identified the patient, determined the appropriateness of sedation and have assessed the patient immediately prior to the procedure. All medicine(s) and interventions are by my order.
--- NOTE | 2019-12-08 17:36 | Cardiac Catheterization ---
[facility] Data: Trans[employer] Super[employer] Cardiac Status Clinical evaluation leading to the procedure CAD Presenation: Non STEMI Anginal Classification: CCS IV Heart Failure: No Cardiogenic Shock within 24 Hours: No Cardiac Arrest within 24 Hours: No Imaging Studies Past 6 Months: Yes Stress Studies Past 6 Months: No Diagnostic Physicians Name: David Robledo MD Status: Urgent Closure Device Percutaneous Entry Location: Ulnar Closure Device: Radial Band Recommendations: Medical Therapy and/or Counseling Intraprocedure Events Significant Disection: No Perforation: No Cardiac Cath Procedure Full Procedure Date December 08, 2019 Pre-Procedure Diagnosis Pre-Procedure Diagnosis: Acute Coronary Syndrome AUC Score AUC Score: 7 Post-Procedure Diagnosis Post-Procedure Diagnosis: Moderate CAD Procedure(s) Performed Procedure(s) Performed: Coronary Angiography, Left Heart Cath, Ultrasound Guided Vascular Access and Bypass Graft Angiography Process Design Engineer David Robledo MD Ticket Broker(s) Nikita Estimated Blood Loss Estimated Blood Loss: 10 Medication(s) Medication(s): Fentanyl, Heparin, Lidocaine 1%, Nicardipine, Nitroglycerin and Versed Summary of Findings Indication: Sudden onset chest pain, elevated troponin in the setting of acute emotional stress Access: 6FR left ulnar artery under ultrasound guidance Catheters: JL3.5, JR4, DAREN Findings: LM -luminal irregularities LAD - proximal to mid LAD stent patent with minimal in-stent restenosis, late- mid LAD subtotally occluded with competitive flow after 2nd diagonal. -First diagonal stent widely patent without significant in-stent restenosis -Distal LAD after DAI anastomosis widely patent without significant disease. Circumflex -moderate caliber vessel with luminal irregularities. High small OM1 with diffuse severe disease. 30% proximal OM 3 disease RCA -dominant, large caliber vessel, 20% proximal disease, distal luminal irregularities, proximal right PDA with 40% stenosis SVG to first diagonalknown to be occluded DAI-LADwidely patent LVEDP -23 Arterial Closure: TR band Summary: 1. Patent DAI to LAD 2. Widely patent LAD into first diagonal stents 3. Chronic unchanged severe teller multivessel coronary artery disease - Chronic subtotal mid LAD occlusion. -Small high OM1 with severe diffuse disease. 4. Known occluded SVG to first diagonal. 5. Elevated left-sided filling pressures Recommendations: Findings most consistent with stress-induced cardiomyopathy. Recommend supportive care. continue long-term DAPT with aspirin, clopidogrel Hold additional IV fluids, gentle diuresis for respiratory symptoms Resume low-dose metoprolol as BP allows Pain control Hemodynamics Rest Ao:: 82/53/65 Final Ao: 89/61/70 LV: 90/23 Recommendations Recommendations: Medical Therapy and/or Counseling Specimens Specimens: None Radiation Exposure (mGy) 1359 Contrast (mls) 55 Anesthesia Moderate Procedural Complication(s) None Disposition ICU I attest to the content of the Intraoperative Record and any orders documented therein. Any exceptions are noted below. [facility] Card Cath Procedure Codes Cardiac Catheterization Procedure 1: Cardiovascular Cath Procedures: 42127 Coronaries & LHC (+/-LV) & Grafts/IM (arterial & venous) Therapeutic Services & Ancillary Proc Procedure 1: Cardiovascular Tx and Anc Procedures: 26851 Ultrasonic Guidance Vascular Access Moderate Sedation Procedure 1: Sedation/Anesthesia: 31467 Mod Sedation by the same physician;Init15 Min Child Age 5 & Up Procedure 2: Sedation/Anesthesia: 63724 Mod Sedation by the same physician; Ea [id number] Minutes PG Care Time/CCT Total # of Minutes Spent Total Time Spent with Patient: Total time spent is greater than 50% in coordination of care (as documented) at patient's floor/unit and/or counseling patient:
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
[2019-12-08] MEDS ORDERED: LORazepam 0.5 MG/1 ML VIAL IV PRN (17:50)
[2019-12-08] MEDS ORDERED: GLUCAGON FOR INJ 1 MG VIAL IM PRN (18:15)
[2019-12-08] MEDS ORDERED: CARBOHYDRATES FOR HYPOGLYCEMIA PO PRN (18:15)
[2019-12-08] MEDS ORDERED: GLUCOSE 40% GEL 15 GM TUBE PO PRN (18:15)
[2019-12-08] MEDS ORDERED: GLUCOSE 10 TABS/TUBE PO PRN (18:15)
[2019-12-08] MEDS ORDERED: DEXTROSE 50% 50 ML SYRINGE IV PRN (18:15)
[2019-12-08] MEDS ORDERED: PHARMACY GLYCEMIC MGMT CONSULT PRN (18:20)
[2019-12-08] MEDS ORDERED: CLOPIDOGREL BISULFATE 75 MG TAB PO ONE (19:00)
[2019-12-08] MEDS: INSULIN ASPART 100 UNITS/ML 3 ML PEN SC SCH ×2 (19:06→21:15)
[2019-12-08] MEDS ORDERED: LORazepam 1 MG TAB PO STA (20:22)
[2019-12-08] MEDS: PRAMIPEXOLE DIHYDROCHLO 0.5 MG TAB PO SCH (20:34)
[2019-12-08] MEDS: MAGNESIUM OXIDE 400 MG TAB PO SCH (20:34)
[2019-12-08] MEDS: METOPROLOL TARTRATE 25 MG TAB PO SCH (20:35)
--- NOTE | 2019-12-08 20:51 | XCELERA ---
[id number]
[2019-12-08] MEDS ORDERED: INSULIN GLARGINE SOLOSTAR 100 UNITS/ML 3 ML PEN SC SCH (21:00)
[2019-12-09] MEDS: INSULIN ASPART 100 UNITS/ML 3 ML PEN SC SCH ×6 (00:32→20:56)
[2019-12-09] MEDS: METOPROLOL TARTRATE 25 MG TAB PO SCH ×5 (04:22→20:53)
[2019-12-09] MEDS ORDERED: LORazepam 0.5 MG TAB PO PRN (05:47)
[2019-12-09] MEDS: ATORVASTATIN 40 MG TAB PO SCH (07:43)
[2019-12-09] MEDS: POTASSIUM CHLORIDE 10 MEQ TABCR PO SCH (07:44)
[2019-12-09] MEDS: ZINC SULFATE 220 MG CAPSULE PO SCH (07:44)
[2019-12-09] MEDS: MAGNESIUM OXIDE 400 MG TAB PO SCH ×2 (07:44→20:52)
[2019-12-09] MEDS: MULTIVITAMIN TAB PO SCH (07:44)
[2019-12-09] MEDS: ASPIRIN 81 MG ECTAB PO SCH (07:47)
[2019-12-09] MEDS: CYANOCOBALAMIN (VITAMIN B-12) 2,500 MCG TAB.SUBL SL SCH (07:47)
[2019-12-09] MEDS: ASCORBIC ACID 500 MG TAB PO SCH (07:48)
[2019-12-09] MEDS: INSULIN GLARGINE SOLOSTAR 100 UNITS/ML 3 ML PEN SC SCH ×2 (07:54→20:54)
[2019-12-09 08:04] LABS: Basophils # (auto) 0.04 K/uL (0-0.2); Basophils % (auto) 0.3 %; Eosinophils # (auto) 0.01 K/uL (0-0.5); Eosinophils % (auto) 0.1 %; Hematocrit (blood only) 39.9 % (37-47); Hemoglobin 12.7 g/dL (12.0-16.0); Immature Granulocytes # (auto) 0.05 K/uL (0.00-0.02); Immature Granulocytes % (auto) 0.4 %; Lymphocytes # (auto) 4.17 K/uL (1.2-3.4); Lymphocytes % (auto) 30.6 %; Mean Corpuscular Hemoglobin 29.7 pg (25-34); Mean Corpuscular Hgb Conc 31.8 g/dL (32-36); Mean Corpuscular Volume 93.4 fL (80-100); Mean Platelet Volume 12.5 fL (7.4-10.4); Monocytes # (auto) 1.58 K/uL (0.11-0.59); Monocytes % (auto) 11.6 %; Neutrophils # (auto) 7.79 K/uL (1.4-6.5); Platelet Count 247 K/uL (130-400); RDW Coefficient of Variation 13.6 % (11.5-14.5); RDW Standard Deviation 46.8 fL (36.4-46.3); Red Blood Count 4.27 M/uL (4.2-5.4); White Blood Count 13.64 K/uL (4.8-10.8)
[2019-12-09] MEDS ORDERED: INSULIN GLARGINE SOLOSTAR 100 UNITS/ML 3 ML PEN SC STA (08:23)
--- NOTE | 2019-12-09 08:29 | Cardiology Progress Note ---
Date of Service December 09, 2019 Assessment & Plan (1) Stress-induced cardiomyopathy: 2. Coronary disease post prior two-vessel CABG (known occluded vein graft to diagonal) patent stent to first diagonal 3. Chronic renal insufficiency 4. Type 2 diabetes 5. Restrictive lung disease Minimal residual chest pain primarily when particularly anxious. Hemodynamically electrically stable overnight. Well-perfused without signs of heart failure on exam today. Resume beta-fritz today. Low-dose ARB as BP allows. -Resume maintenance Lasix 40 mg daily pending renal function -Continue DAPT with aspirin, clopidogrel. Patient asking to go home today. If BP stable, chest pain well controlled with ambulation okay with going home later today in the setting of current family situation. If discharged follow-up with cardiology and PCP next week. Admission and Anticipated Discharge Date Admission Date: December 08, 2019 Subjective Tearful this morning. Reports mild chest discomfort only when she becomes very anxious. Denies significant shortness of breath Telemetry reviewedno arrhythmia Review of Systems Review of Systems: All systems reviewed & are unremarkable except as noted in HPI & below Physical Exam Physical Exam: General: Tearful HEENT: Sclerae anicteric Lungs: Clear to auscultation bilaterally, no rhonchi or wheezes Cardiac: Regular, no murmurs Abdomen: Soft, nontender Extremities: Warm, well perfused, no edema. Left ulnar access site with mild ecchymosis, no hematoma, distal capillary refill intact. Skin: No rashes or lesions. Neuro: Nonfocal Psych: Alert orient x3 Results & Data ([facility]) Vital Signs (Past 12 Hours) Vital Signs Temp Pulse Pulse Resp BP Pulse Ox 12/09/19 07:45 77 18 157/88 H 12/09/19 07:19 81 12/09/19 03:20 98.2 F 70 21 97/74 L 95 12/08/19 23:59 69 12/08/19 23:18 97.9 F 72 22 90/60 L 95 12/08/19 22:01 69 17 113/57 L 95 12/08/19 20:30 80 17 131/88 94 PG Care Time/CCT Total # of Minutes Spent Total Time Spent with Patient: Total time spent is greater than 50% in coordination of care (as documented) at patient's floor/unit and/or counseling patient: Coding Level of Care Code 19485 Subseq Hosp Care Lvl 3 Diagnoses Stress-induced cardiomyopathy I51.81
[2019-12-09 08:37] LABS: BUN Creatinine Ratio 14.9 (10-20); Calcium 9.2 mg/dl (8.5-10.1); Creatinine Clr Calc Pharmacy 21.3 ml/min; Est GFR (African American) 18.8; Est GFR (Non-African American) 16.2; Potassium 5.9 mmol/L (3.5-5.1)
[2019-12-09 08:43] LABS: Troponin I 0.834 ng/ml (0-0.045)
[2019-12-09] MEDS ORDERED: CLOPIDOGREL BISULFATE 75 MG TAB PO SCH ×2 (09:00)
--- NOTE | 2019-12-09 12:21 | Hospitalist Progress Note ---
Date of Service December 09, 2019 Assessment & Plan (1) Stress-induced cardiomyopathy: Echo on 12/07 showed EF 30-35% with apical akinesis, consistent with stress-induced cardiomyopathy. - Restarted beta-fritz on 12/08 - Will start ACEi when able - Restart furosemide as renal function normalizes - Cardiology consult appreciated. (2) Chest pain: Stress-induced. Left heart cath on 12/07 showed patent vessels and no ACS. - Treat chest pain with Ativan (3) Coronary artery disease: As above with CAD. - Continue ASA, Plavix, metorolol as above - Hold lisinopril temporarily (4) Restless legs syndrome: - Continue pramipexole 0.5mg PO HS (5) DM type 2 (diabetes mellitus, type 2): HbA1C in October 9.7% - she reports acutely worsened due to being at home with more depression as she is unable to see a family. - Glycemic pharmacy consult for glucose control with basal bolus insulin (6) Restrictive lung disease: Possibly due to prior amiodarone use as per last pulmonology note. - Monitor (7) HTN (hypertension): Hold Lasix and lisinopril. - Metoprolol as above (8) DVT prophylaxis: SCDs Admission and Anticipated Discharge Date Admission Date: December 08, 2019 Subjective Understandably very sad this morning due to loss of kxuevldy-rn-jpn. She reports that her chest hurts slightly when she thinks too much about her ptjvgwhz-ej-mdi. Reports no fevers/chills, shortness of breath, abdominal pain, nausea, or vomiting. Physical Exam Constitutional: WD/WN, vitals as above Eyes: EOM intact bilaterally; no conjunctival abnormality ENMT: external ear and nose normal, oropharynx normal Neck: trachea midline, no thyromegaly normal visual inspection Respiratory: normal respiratory effort, lungs clear to auscultation no respiratory distress Cardiovascular: RRR, no murmur, no edema Gastrointestinal (Abdomen): Inspection/Auscultation: abdomen normal to inspection; abdomen not distended Musculoskeletal: no cyanosis or clubbing, extremities motor strength 5/5 Skin: no rashes, warm and dry Neurologic: moves all extremities and awake Psychiatric: Orientation: alert, oriented to person and cooperative Eye Contact: good eye contact Affect: + tearful affect Results & Data Results & Data ([facility]) Vital Signs (Past 12 Hours) Vital Signs Temp Pulse Pulse Resp BP Pulse Ox 12/09/19 11:11 36.5 C 79 20 132/68 97 12/09/19 07:45 36.8 C 77 18 157/88 H 12/09/19 07:19 81 12/09/19 03:20 36.8 C 70 21 97/74 L 95 PG Care Time/CCT Total # of Minutes Spent Total Time Spent with Patient: Total time spent is greater than 50% in coordination of care (as documented) at patient's floor/unit and/or counseling patient: Coding Level of Care Code 21545 Subseq Hosp Care Lvl 2 Diagnoses Stress-induced cardiomyopathy I51.81 Chest pain R07.9 Chest pain type: unspecified Coronary artery disease I25.10 Restless legs syndrome G25.81 DM type 2 (diabetes mellitus, type 2) E11.22; N18.3; Z79.4 Diabetes mellitus senior care insulin use: with meterman use Diabetes mellitus complication status: with kidney complications Diabetes mellitus complication detail: with chronic kidney disease Chronic kidney disease stage: stage 3 (moderate) Restrictive lung disease J98.4 HTN (hypertension) I10 Hypertension type: essential hypertension DVT prophylaxis Z29.9 (1) Chest pain Chest pain type: unspecified Qualified Code(s): R07.9 - Chest pain, unspecified (2) DM type 2 (diabetes mellitus, type 2) Diabetes mellitus senior care insulin use: with senior care use Diabetes mellitus complication status: with kidney complications Diabetes mellitus complication detail: with chronic kidney disease Chronic kidney disease stage: stage 3 (moderate) Qualified Code(s): E11.22 - Type 2 diabetes mellitus with diabetic chronic kidney disease; N18.3 - Chronic kidney disease, stage 3 (moderate); Z79.4 - manager terminal (current) use of insulin (3) HTN (hypertension) Hypertension type: essential hypertension Qualified Code(s): I10 - Essential (primary) hypertension
--- NOTE | 2019-12-09 13:24 | Pharmacy Report ---
Pharmacy Glycemic Short Note 2 - Date of Service December 09, 2019 - Glycemic Short BSG Results (Last 24 hours): 12/08/19 12/08/19 12/08/19 17:54 21:05 23:52 Glucose POC Glucose 215 H 281 H 271 H 12/09/19 12/09/19 12/09/19 04:05 07:17 07:22 Glucose 257 H POC Glucose 298 H 259 H 12/09/19 11:10 Glucose POC Glucose 186 H OUTPATIENT ANTIDIABETIC REGIMEN: * Lantus 45 units BID (patient confirmed) * Humalog 12 units BIDM ASSESSMENT: * Patient received 103 units of insulin yesterday (reports 126 total units at home) and remained hyperglycemic overnight. Increased this mornings dose to compensate for reduced basal dose last evening and tightened the novolog scale. Will then utilize a dosing regimen based on her total home dose, moderately stressed. * Patient is ordered a diet and is eating, however PO intake appears to be reduced. Will monitor and adjust basal doses as needed * Lunchtime BSG today was much improved PLAN FOR INPATIENT GLYCEMIC CONTROL: * Hold outpatient oral diabetes medications * Basal insulin * 50 units this morning X 1 (40 + additional 10) * Lantus 40 units SQ BID starting this evening * Bolus insulin * NovoLog per scale ACHS or Q6hrs while NPO * Goal Range: Low 110 mg/dL - High 140 mg/dL * Correction Factor: 10 mg/dL/unit * Nutritional / Prandial insulin per carb ratio of 1 unit per 3 grams CHO consumed
[2019-12-09] MEDS: PRAMIPEXOLE DIHYDROCHLO 0.5 MG TAB PO SCH (20:53)
--- NOTE | 2019-12-09 22:18 | Electrocardiogram Report ---
Test Reason : Blood Pressure : / mmHG Vent. Rate : 086 BPM Atrial Rate : 086 BPM P-R Int : 224 ms QRS Dur : 098 ms QT Int : 400 ms P-R-T Axes : 072 -46 100 degrees QTc Int : 478 ms Sinus rhythm with 1st degree A-V block Left anterior fascicular block Nonspecific T wave abnormality Abnormal ECG When compared with ECG of 08-DEC-2019 14:48, T wave amplitude has decreased in Inferior leads T wave inversion less evident in Lateral leads Confirmed by Erick Jennings ([id number]) on 12/09/2019 10:18:08 PM Referred By: REFERRED SELF Confirmed By:Erick Jennings
[2019-12-10 07:02] LABS: Hematocrit (blood only) 38.8 % (37-47); Hemoglobin 12.3 g/dL (12.0-16.0); Mean Corpuscular Hemoglobin 29.9 pg (25-34); Mean Corpuscular Hgb Conc 31.7 g/dL (32-36); Mean Corpuscular Volume 94.2 fL (80-100); Mean Platelet Volume 12.5 fL (7.4-10.4); Platelet Count 239 K/uL (130-400); RDW Coefficient of Variation 13.7 % (11.5-14.5); Red Blood Count 4.12 M/uL (4.2-5.4); White Blood Count 13.01 K/uL (4.8-10.8)
[2019-12-10 07:41] LABS: BUN Creatinine Ratio 16.6 (10-20); Calcium 8.8 mg/dl (8.5-10.1); Creatinine Clr Calc Pharmacy 22.8 ml/min; Est GFR (African American) 18.7; Est GFR (Non-African American) 16.1; Magnesium 2.6 mg/dl (1.8-2.4); Potassium 5.2 mmol/L (3.5-5.1)
[2019-12-10] MEDS: INSULIN GLARGINE SOLOSTAR 100 UNITS/ML 3 ML PEN SC SCH (08:06)
[2019-12-10] MEDS: INSULIN ASPART 100 UNITS/ML 3 ML PEN SC SCH (08:06)
[2019-12-10] MEDS: MAGNESIUM OXIDE 400 MG TAB PO SCH (08:06)
[2019-12-10] MEDS: ATORVASTATIN 40 MG TAB PO SCH (08:07)
[2019-12-10] MEDS: POTASSIUM CHLORIDE 10 MEQ TABCR PO SCH (08:07)
[2019-12-10] MEDS: CYANOCOBALAMIN (VITAMIN B-12) 2,500 MCG TAB.SUBL SL SCH (08:07)
[2019-12-10] MEDS: ASPIRIN 81 MG ECTAB PO SCH (08:07)
[2019-12-10] MEDS: MULTIVITAMIN TAB PO SCH (08:07)
[2019-12-10] MEDS: ZINC SULFATE 220 MG CAPSULE PO SCH (08:07)
[2019-12-10] MEDS: ASCORBIC ACID 500 MG TAB PO SCH (08:08)
[2019-12-10] MEDS: METOPROLOL TARTRATE 25 MG TAB PO SCH (08:08)
[2019-12-10] MEDS ORDERED: FUROSEMIDE 20 MG in SYRINGE 0 ML IV ONE (09:15)
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
== END 2019-12-10 10:45 | disposition home or self-care (01) | DRG 281 ==
LOC: ED 11:18 → CC 16:31 → SUATTDRO 17:04 → 2E 17:04

== ENCOUNTER 2020-11-21 14:37 | Observation (INO) ==
[2020-11-21] MEDS ORDERED: ONDANSETRON INJ 2 MG/ML 2 ML VIAL IV STA (14:54)
[2020-11-21] MEDS ORDERED: MoRPHine SULFATE 4 MG/ML 1 ML CARP\\VIAL IV STA (14:54)
--- NOTE | 2020-11-21 15:14 | XRay Report ---
XR chest 1V portable HISTORY: 70 years-old Female Chest Pain acute atypical chest pain COMPARISON: Chest radiograph 12/08/2019, chest CT 07/20/2020. TECHNIQUE: Portable AP view of the chest FINDINGS: Cardiac silhouette is enlarged. Prior median sternotomy. No pneumothorax, pleural effusion, airspace consolidation or overt pulmonary edema. Unchanged prominence of the interstitium. The 7 mm nodule of the left lower lobe described on comparison chest CT is not identified. Degenerative changes of the s houlders and spine. IMPRESSION: Cardiomegaly without acute process. ACT 112: Negative or not required by law. The above report was generated using voice recognition software. It may contain grammatical, syntax o r spelling errors. Electronically signed by: Santi Fletcher M.D. 11/21/2020 3:12 PM
--- NOTE | 2020-11-21 15:24 | Emergency Department Note ---
Impression & Plan Chest pain, exertional ED Provider Note NAME: ERMIAS MAZARIEGOS AGE: 70 SEX: F : 1950 ARRIVES VIA: Walk-In INFORMANT: Patient, ED PROVIDER(S): Reynaldo Key DO CHIEF COMPLAINT: Chest pain HPI: The patient is a 70-year-old female who was at pulmonary rehab and presented directly to the emergency department as a priority patient because of chest pain. The patient has a history of coronary artery disease. She states that she has been through cardiac rehab. She has a history of an abnormal EKG. She does take nitroglycerin. She states that she took nitroglycerin yesterday for chest pain with exertion. This is not atypical for her. She also has a history of diabetes. She presented to the emergency department from pulmonary rehab because of chest pain. While there she was given nitroglycerin. She presented to the emergency department after she started having chest pain again which began while she was on the exercise bike a second time. The patient at this time describes anterior chest pain which is constant. She notices no nausea. She does complain of shortness of breath. She denies having any lower extremity swelling or pain. The pain is significantly improved after the administration of nitroglycerin. The patient has had similar symptoms multiple times in the past. ROS: See above HPI for pertinent positives & negatives. A total of 10 systems reviewed and were otherwise negative. PAST MEDICAL HISTORY: See Below PAST SURGICAL HISTORY: See Below FAMILY HISTORY: See Below SOCIAL HISTORY: See Below HOME MEDICATIONS: See Below ALLERGIES: See Below VITALS: See Below PHYSICAL EXAMINATION: GENERAL: The patient is awake and alert. The patient is very anxious appearing. EYES: The conjunctivae are clear. The pupils are round and reactive. EARS, NOSE, MOUTH AND THROAT: The nose is without any evidence of any deformity. NECK: The neck is nontender and supple. RESPIRATORY: Normal respiratory effort is noted there is no evidence of wheezing rhonchi or rales CARDIOVASCULAR: Regular rate and rhythm noted there no murmurs rubs or gallops normal S1 normal S2. GASTROINTESTINAL: The abdomen is soft. Abdomen is nontender. PELVIS: The Pelvis is stable. No tenderness to palpation is noted. BACK: No midline tenderness or or step-off noted range of motion in flexion extension as well as rotation no signs of muscle spasm noted MUSCULOSKELETAL/EXTREMITIES: There is no evidence of gross deformity full range of motion is noted in the hips and shoulders. SKIN: There is no obvious evidence of any rash. There are no petechiae, pallor or cyanosis noted. NEUROLOGIC: Patient is awake alert and oriented x3. MEDICAL DECISION MAKING: The patient is a 70-year-old female who presented to the emergency department for an evaluation of chest pain. The patient was at the pulmonary rehab area when she started having chest pain. The chest pain was worsened with exertion. She was given nitroglycerin at the pulmonary lab but then sent emergently to the emergency department for further evaluation. I discussed the patient's laboratory and radiographic studies with her. I discussed the limitations of the emergency department work-up for chest pain with her. Ultimately given her symptoms I did discuss her case with the on-call [facility] hospitalist group. They've agreed to evaluate the patient in the emergency department for further management and disposition. The patient's EKG did not show significant change in her troponin was not elevated but she is only had pain for short period of time. Given her comorbidities I feel she may be a better candidate for inpatient management to determine the cause of her chest pain. Triage Nursing notes reviewed. Prior medical records reviewed Vital Signs: reviewed and remarkable for no significant abnormalities Differential diagnosis: Cardiac ischemia, aortic dissection, pulmonary embolism, pneumothorax, pneumonia, pericarditis, myocarditis, esophageal rupture, GERD, cholecystitis, pancreatitis, musculoskeletal, as well as other pathologies. ER treatment provided: See below Diagnostics interpreted by me: ECG: EKG was obtained in the emergency department. My interpretation is sinus rhythm at 100 bpm. First-degree AV block was noted. LVH was noted by voltage criteria. Nonspecific T wave abnormalities were noted. This was compared to a tracing from December 072019. No significant changes were noted. Cardiac Monitoring: An order was placed for continuous cardiac monitoring. The monitor shows a rate of 75 bpm with sinus rhythm. Laboratory studies: As stated above and show below. Imaging studies: See below Consultation(s): [facility]. [facility] History Medical History (Updated 11/22/20 @ 16:48 by Reynaldo Key DO) Abnormal diffusion capacity determined by pulmonary function test Angina pectoris HAS BLOCKAGE AND PLANNED HEART CATH WITH STENT 03/22/19 CAD (coronary artery disease) Chronic combined systolic and diastolic CHF (congestive heart failure) CKD stage 3 due to type 2 diabetes mellitus Dyslipidemia HTN (hypertension) Myocardial infarction 01/2018 - HEART CATH AND ONE OF DOUBLE VESSEL IS BLOCKED AND NO STENT. FOLLOW WITH DR CORDERO Restless legs syndrome Restrictive lung disease Surgical History H/O heart artery stent TOTAL OF 5 STENTS, LAST ONE WAS PLACED 03/2019 History of open heart surgery 2017 CABG X 2 [facility] History of open reduction and internal fixation (ORIF) procedure RIGHT HIP History of total abdominal hysterectomy and bilateral salpingo-oophorectomy Hx laparoscopic cholecystectomy Hx of colonoscopy Hx of splenectomy Family History Unknown Diabetes Social History Smoking Status: Never smoker Second Hand Exposure: No; Hx Alcohol Use: No Hx Substance Use: No Preferred Language: Latvian Communication Ability: Effective Visual Impairment: No Limitations Human Service Specialist Required: No Beliefs That Will Affect Care: None marital status: Current Living Situation: Spouse Feels Safe at Home: Yes Assistive Devices: None Allergies Allergies Allergy/AdvReac Type Severity Reaction Status Date / Time Penicillins Allergy Intermediate Numbness Verified 11/21/20 18:15 of lips prasugrel Allergy Intermediate RASH,ITCHY Verified 11/21/20 18:15 nickel Allergy Mild Rash Verified 11/21/20 18:15 Home Meds Home Medications Medication Instructions Recorded Confirmed Probiotic 1 cap PO QAM 02/16/18 11/21/20 ascorbic acid (vitamin C) 1,000 mg PO QAM 02/16/18 11/21/20 magnesium oxide 400 mg PO BID 02/16/18 11/21/20 metoprolol succinate 25 mg PO QAM 02/16/18 11/21/20 multivitamin [Multiple Vitamins] 1 tab PO QAM 02/16/18 11/21/20 pramipexole 0.5 mg PO HS 02/16/18 11/21/20 zinc 50 mg PO QAM 02/16/18 11/21/20 cyanocobalamin (vitamin B-12) 5,000 mcg PO DAILY tab 03/18/19 11/21/20 5,000 mcg disintegrating tablet ferrous gluconate 324 mg (38 mg 324 mg PO BID tab 03/18/19 11/21/20 iron) tablet furosemide 40 mg tablet 40 mg PO BID tab 03/18/19 11/21/20 lisinopril 20 mg tablet 20 mg PO QAM tab 03/18/19 11/21/20 nitroglycerin 0.4 mg sublingual 0.4 mg SL Q5M PRN #25 tab 03/18/19 11/21/20 tablet potassium chloride 10 mEq 10 meq PO DAILY #30 tab 03/18/19 11/21/20 tablet,extended release insulin glargine 100 unit/mL 45 units SUBCUT AMPM ml 12/16/19 11/21/20 subcutaneous solution insulin lispro 100 unit/mL 12 units SUBCUT TIDWMEAL ml 12/16/19 11/22/20 subcutaneous solution aspirin 81 mg PO DAILY 11/21/20 11/21/20 Previous Rx's Medication Instructions Recorded clopidogrel 75 mg PO QAM #32 tab 02/18/18 albuterol sulfate 90 mcg/actuation 2 puff INHALATION Q6H PRN #18 g 07/24/20 aerosol inhaler Results & Data (ED) Vital Signs Vital Signs - 24 hr 11/21/20 17:01 11/21/20 17:15 11/21/20 17:30 Pulse Rate 88 86 86 Pulse Rate from SpO2 Sensor 88 85 86 Respiratory Rate 12 15 12 Blood Pressure 154/70 H 156/74 H 159/79 H Blood Pressure Mean 98 101 105 Pulse Oximetry 100 100 100 Oxygen Flow Rate 11/21/20 17:45 11/21/20 18:00 11/21/20 18:15 Pulse Rate 83 81 84 Pulse Rate from SpO2 Sensor Respiratory Rate 16 12 15 Blood Pressure 163/72 H 152/74 H 162/78 H Blood Pressure Mean 102 100 106 Pulse Oximetry 100 100 100 Oxygen Flow Rate 2 11/21/20 18:30 11/21/20 18:45 11/21/20 19:01 Pulse Rate 82 82 80 Pulse Rate from SpO2 Sensor Respiratory Rate 16 12 16 Blood Pressure 147/75 H 141/63 H 159/77 H Blood Pressure Mean 99 89 104 Pulse Oximetry 100 100 100 Oxygen Flow Rate 11/21/20 19:15 11/21/20 19:30 11/21/20 19:31 Pulse Rate 81 82 81 Pulse Rate from SpO2 Sensor 81 Respiratory Rate 17 12 14 Blood Pressure 167/78 H 164/75 H Blood Pressure Mean 107 104 Pulse Oximetry 100 100 Oxygen Flow Rate 11/21/20 19:45 Pulse Rate 81 Pulse Rate from SpO2 Sensor Respiratory Rate 16 Blood Pressure 161/81 H Blood Pressure Mean 107 Pulse Oximetry 100 Oxygen Flow Rate Home Medications Current Medication List: was personally reviewed by me Laboratory Data Attestation: I reviewed the patient's lab results. Result diagrams: 11/22/20 03:50 11/22/20 03:50 Lab Results 11/21/20 11/21/20 11/21/20 Range/Units 14:53 14:53 14:53 WBC Cancelled RBC Cancelled Hgb Cancelled Hct Cancelled MCV Cancelled MCH Cancelled MCHC Cancelled RDW Std Deviation Cancelled RDW Coeff of Taylor Cancelled Plt Count Cancelled MPV Cancelled Immature Gran % (Auto) Cancelled Neut % (Auto) Cancelled Lymph % (Auto) Cancelled [place] % (Auto) Cancelled Eos % (Auto) Cancelled Baso % (Auto) Cancelled Neut # (Auto) Cancelled Lymph # (Auto) Cancelled [place] # (Auto) Cancelled Eos # (Auto) Cancelled Baso # (Auto) Cancelled Immature Gran # (Auto) Cancelled Absolute Nucleated RBC Cancelled Nucleated RBC % (auto) Cancelled Neutrophils % (Manual) Cancelled Band Neutrophils % Cancelled Lymphocytes % (Manual) Cancelled Prolymphocyte % Cancelled Reactive Lymphs % (Man) Cancelled Monocytes % (Manual) Cancelled Eosinophils % (Manual) Cancelled Basophils % (Manual) Cancelled Metamyelocytes % (Man) Cancelled Myelocytes % (Man) Cancelled Promyelocytes % (Man) Cancelled Blast Cells % (Manual) Cancelled Plasma Cell % (Manual) Cancelled Other Cells % Cancelled Nucleated RBC % Cancelled Neutrophils # (Manual) Cancelled Band Neutrophils # Cancelled Total Absolute Neuts Cancelled Lymphocytes # (Manual) Cancelled Prolymphocyte # Cancelled Reactive Lymphs # Cancelled Total Abs Lymphocytes Cancelled Monocytes # (Manual) Cancelled Eosinophils # (Manual) Cancelled Basophils # (Manual) Cancelled Metamyelocytes # (Man) Cancelled Myelocytes # (Manual) Cancelled Promyelocytes # (Man) Cancelled Blast Cells # (Man) Cancelled Plasma Cell # (Manual) Cancelled Other Cells # Cancelled Nucleated RBCs # (Man) Cancelled Hypersegmented Neuts Cancelled Hyposegmented Neuts Cancelled Hypogranular Neuts Cancelled Large Granular Lymphs Cancelled # Lrg Granular Lymphs Cancelled Hairy Cells Cancelled Smudge Cells Cancelled Toxic Granulation Cancelled Toxic Vacuolation Cancelled Dohle Bodies Cancelled Shruthi Rods Cancelled Platelet Estimate Cancelled Hypogranular Platelets Cancelled Clumped Platelets Cancelled Giant Platelets Cancelled Platelet Satelliting Cancelled RBC Morphology Cancelled Polychromasia Cancelled Hypochromasia Cancelled Poikilocytosis Cancelled Basophilic Stippling Cancelled Anisocytosis Cancelled Microcytosis Cancelled Macrocytosis Cancelled Spherocytes Cancelled Pappenheimer Bodies Cancelled Sickle Cells Cancelled Target Cells Cancelled Tear Drop Cells Cancelled Ovalocytes Cancelled Stomatocytes Cancelled [place] Bodies Cancelled Echinocytes Cancelled Acanthocytes (Spur) Cancelled Rouleaux Cancelled RBC Agglutinates Cancelled Schistocytes Cancelled RBC Morph Comment Cancelled Sezary Cell Cancelled PT Cancelled INR Cancelled APTT Cancelled PTT Ratio Cancelled Sodium 137 (136-145) mmol/L Potassium 4.7 (3.5-5.1) mmol/L Chloride 104 (98-107) mmol/L Carbon Dioxide 23 (21-32) mmol/L Anion Gap 10.0 (3-11) BUN 24 H (7-18) mg/dl Creatinine 1.88 H (0.6-1.2) mg/dl Est Cr Clr Drug Dosing 31.7 ml/min Est GFR ( Amer) 30.4 ml/min Est GFR (Non-Af Amer) 26.2 ml/min BUN/Creatinine Ratio 12.7 (10-20) Glucose 316 H* (70-99) mg/dl Calcium 9.0 (8.5-10.1) mg/dl Total Bilirubin 0.6 (0.2-1) mg/dl AST 24 (15-37) U/L ALT 28 (12-78) U/L Alkaline Phosphatase 142 H (45-117) U/L Troponin I < 0.015 (0-0.045) ng/ml Total Protein 7.2 (6.4-8.2) gm/dl Albumin 3.5 (3.4-5.0) gm/dl Globulin 3.7 (2.5-4.0) gm/dl Albumin/Globulin Ratio 0.9 (0.9-2) Lipase 227 (73-393) U/L Beta-Hydroxybutyric Acd (0.2-2.81) mg/dl COVID-19 Eval Order SARS-CoV-2 (PCR) (Negative) 11/21/20 11/21/20 11/21/20 Range/Units 15:46 15:54 18:10 WBC 10.68 RBC 3.95 L Hgb 11.9 L Hct 38.1 MCV 96.5 MCH 30.1 MCHC 31.2 L RDW Std Deviation 46.3 RDW Coeff of Taylor 13.2 Plt Count 282 MPV 12.6 H Immature Gran % (Auto) 0.2 Neut % (Auto) 53.2 Lymph % (Auto) 32.3 [place] % (Auto) 11.8 Eos % (Auto) 2.0 Baso % (Auto) 0.5 Neut # (Auto) 5.69 Lymph # (Auto) 3.45 H [place] # (Auto) 1.26 H Eos # (Auto) 0.21 Baso # (Auto) 0.05 Immature Gran # (Auto) 0.02 Absolute Nucleated RBC Nucleated RBC % (auto) Neutrophils % (Manual) Band Neutrophils % Lymphocytes % (Manual) Prolymphocyte % Reactive Lymphs % (Man) Monocytes % (Manual) Eosinophils % (Manual) Basophils % (Manual) Metamyelocytes % (Man) Myelocytes % (Man) Promyelocytes % (Man) Blast Cells % (Manual) Plasma Cell % (Manual) Other Cells % Nucleated RBC % Neutrophils # (Manual) Band Neutrophils # Total Absolute Neuts Lymphocytes # (Manual) Prolymphocyte # Reactive Lymphs # Total Abs Lymphocytes Monocytes # (Manual) Eosinophils # (Manual) Basophils # (Manual) Metamyelocytes # (Man) Myelocytes # (Manual) Promyelocytes # (Man) Blast Cells # (Man) Plasma Cell # (Manual) Other Cells # Nucleated RBCs # (Man) Hypersegmented Neuts Hyposegmented Neuts Hypogranular Neuts Large Granular Lymphs # Lrg Granular Lymphs Hairy Cells Smudge Cells Toxic Granulation Toxic Vacuolation Dohle Bodies Shruthi Rods Platelet Estimate Hypogranular Platelets Clumped Platelets Giant Platelets Platelet Satelliting RBC Morphology Polychromasia Hypochromasia Poikilocytosis Basophilic Stippling Anisocytosis Microcytosis Macrocytosis Spherocytes Pappenheimer Bodies Sickle Cells Target Cells Tear Drop Cells Ovalocytes Stomatocytes [place] Bodies Echinocytes Acanthocytes (Spur) Rouleaux RBC Agglutinates Schistocytes RBC Morph Comment Sezary Cell PT 10.2 INR 1.0 APTT 25.5 PTT Ratio 1.0 Sodium (136-145) mmol/L Potassium (3.5-5.1) mmol/L Chloride (98-107) mmol/L Carbon Dioxide (21-32) mmol/L Anion Gap (3-11) BUN (7-18) mg/dl Creatinine (0.6-1.2) mg/dl Est Cr Clr Drug Dosing ml/min Est GFR ( Amer) ml/min Est GFR (Non-Af Amer) ml/min BUN/Creatinine Ratio (10-20) Glucose (70-99) mg/dl Calcium (8.5-10.1) mg/dl Total Bilirubin (0.2-1) mg/dl AST (15-37) U/L ALT (12-78) U/L Alkaline Phosphatase (45-117) U/L Troponin I (0-0.045) ng/ml Total Protein (6.4-8.2) gm/dl Albumin (3.4-5.0) gm/dl Globulin (2.5-4.0) gm/dl Albumin/Globulin Ratio (0.9-2) Lipase (73-393) U/L Beta-Hydroxybutyric Acd (0.2-2.81) mg/dl COVID-19 Eval Order Covid19 at [facility] SARS-CoV-2 (PCR) (Negative) 11/21/20 Range/Units 18:10 WBC RBC Hgb Hct MCV MCH MCHC RDW Std Deviation RDW Coeff of Taylor Plt Count MPV Immature Gran % (Auto) Neut % (Auto) Lymph % (Auto) [place] % (Auto) Eos % (Auto) Baso % (Auto) Neut # (Auto) Lymph # (Auto) [place] # (Auto) Eos # (Auto) Baso # (Auto) Immature Gran # (Auto) Absolute Nucleated RBC Nucleated RBC % (auto) Neutrophils % (Manual) Band Neutrophils % Lymphocytes % (Manual) Prolymphocyte % Reactive Lymphs % (Man) Monocytes % (Manual) Eosinophils % (Manual) Basophils % (Manual) Metamyelocytes % (Man) Myelocytes % (Man) Promyelocytes % (Man) Blast Cells % (Manual) Plasma Cell % (Manual) Other Cells % Nucleated RBC % Neutrophils # (Manual) Band Neutrophils # Total Absolute Neuts Lymphocytes # (Manual) Prolymphocyte # Reactive Lymphs # Total Abs Lymphocytes Monocytes # (Manual) Eosinophils # (Manual) Basophils # (Manual) Metamyelocytes # (Man) Myelocytes # (Manual) Promyelocytes # (Man) Blast Cells # (Man) Plasma Cell # (Manual) Other Cells # Nucleated RBCs # (Man) Hypersegmented Neuts Hyposegmented Neuts Hypogranular Neuts Large Granular Lymphs # Lrg Granular Lymphs Hairy Cells Smudge Cells Toxic Granulation Toxic Vacuolation Dohle Bodies Shruthi Rods Platelet Estimate Hypogranular Platelets Clumped Platelets Giant Platelets Platelet Satelliting RBC Morphology Polychromasia Hypochromasia Poikilocytosis Basophilic Stippling Anisocytosis Microcytosis Macrocytosis Spherocytes Pappenheimer Bodies Sickle Cells Target Cells Tear Drop Cells Ovalocytes Stomatocytes [place] Bodies Echinocytes Acanthocytes (Spur) Rouleaux RBC Agglutinates Schistocytes RBC Morph Comment Sezary Cell PT INR APTT PTT Ratio Sodium (136-145) mmol/L Potassium (3.5-5.1) mmol/L Chloride (98-107) mmol/L Carbon Dioxide (21-32) mmol/L Anion Gap (3-11) BUN (7-18) mg/dl Creatinine (0.6-1.2) mg/dl Est Cr Clr Drug Dosing ml/min Est GFR ( Amer) ml/min Est GFR (Non-Af Amer) ml/min BUN/Creatinine Ratio (10-20) Glucose (70-99) mg/dl Calcium (8.5-10.1) mg/dl Total Bilirubin (0.2-1) mg/dl AST (15-37) U/L ALT (12-78) U/L Alkaline Phosphatase (45-117) U/L Troponin I (0-0.045) ng/ml Total Protein (6.4-8.2) gm/dl Albumin (3.4-5.0) gm/dl Globulin (2.5-4.0) gm/dl Albumin/Globulin Ratio (0.9-2) Lipase (73-393) U/L Beta-Hydroxybutyric Acd (0.2-2.81) mg/dl COVID-19 Eval Order SARS-CoV-2 (PCR) NEGATIVE (Negative) Administered Medications Discontinued Medications Aspirin (Aspirin 81 Mg Ectab) 81 mg PO DAILY [facility] Stop: 12/22/20 08:59 Last Admin: 11/22/20 08:01 Dose: 81 mg Documented by: [id number] Atorvastatin Calcium (Atorvastatin 40 Mg Tab) 40 mg PO QAM [facility] Stop: 12/22/20 08:59 Last Admin: 11/22/20 08:00 Dose: 40 mg Documented by: [id number] Clopidogrel Bisulfate (Clopidogrel Bisulfate 75 Mg Tab) 75 mg PO QAM [facility] Stop: 12/22/20 08:59 Last Admin: 11/22/20 08:01 Dose: 75 mg Documented by: [id number] Diphenhydramine HCl (Diphenhydramine Capsule 25 Mg Cap) 25 mg PO NOW ONE Stop: 11/21/20 23:13 Last Admin: 11/22/20 05:07 Dose: Not Given Documented by: [id number] Ferrous Gluconate (Ferrous Gluconate 324 Mg Tab) 324 mg PO BIDM [facility] Stop: 12/21/20 21:34 Last Admin: 11/22/20 08:01 Dose: 324 mg Documented by: [id number] Admin: 11/21/20 22:15 Dose: 324 mg Documented by: [id number] Furosemide (Furosemide 40 Mg Tab) 40 mg PO [id number] [facility] Stop: 12/21/20 21:34 Last Admin: 11/22/20 08:01 Dose: 40 mg Documented by: [id number] Admin: 11/21/20 22:14 Dose: 40 mg Documented by: [id number] Insulin Glargine (Insulin Glargine Solostar 100 Units/Ml 3 Ml Pen) 40 units SQ BID [facility] Stop: 12/21/20 21:45 Last Admin: 11/22/20 08:05 Dose: 40 units Documented by: [id number] Cosigned by: [id number] Admin: 11/21/20 22:16 Dose: 40 units Documented by: [id number] Cosigned by: [id number] Lisinopril (Lisinopril 20 Mg Tab) 20 mg PO QAM [facility] Stop: 12/22/20 08:59 Last Admin: 11/22/20 08:01 Dose: 20 mg Documented by: [id number] Magnesium Oxide (Magnesium Oxide 400 Mg Tab) 400 mg PO BID [facility] Stop: 12/21/20 21:34 Last Admin: 11/22/20 08:01 Dose: 400 mg Documented by: [id number] Admin: 11/21/20 22:14 Dose: 400 mg Documented by: [id number] Metoprolol Succinate (Metoprolol Succ 25mg Ext Rel Tab) 25 mg PO QAM [facility] Stop: 12/22/20 08:59 Last Admin: 11/22/20 08:01 Dose: 25 mg Documented by: [id number] Morphine Sulfate (Morphine Sulfate 4 Mg/Ml 1 Ml Carp\Vial) 4 mg IV NOW STA Stop: 11/21/20 14:55 Last Admin: 11/21/20 14:59 Dose: 4 mg Documented by: [id number] Nitroglycerin (Nitroglycerin Sl 0.4 Mg/Tab Tab) 0.4 mg SL NOW STA Stop: 11/21/20 16:15 Last Admin: 11/21/20 16:22 Dose: 0.4 mg Documented by: [id number] Ondansetron HCl (Ondansetron Inj 2 Mg/Ml 2 Ml Vial) 4 mg IV NOW STA Stop: 11/21/20 14:55 Last Admin: 11/21/20 14:58 Dose: 4 mg Documented by: [id number] Pramipexole Dihydrochloride (Pramipexole Dihydrochlo 0.5 Mg Tab) 0.5 mg PO HS [facility] Stop: 12/21/20 21:34 Last Admin: 11/21/20 22:14 Dose: 0.5 mg Documented by: [id number] Imaging Data Radiologist's Impression: Chest X-Ray 11/21/20 14:49 XR chest 1V portable HISTORY: 70 years-old Female Chest Pain acute atypical chest pain COMPARISON: Chest radiograph 12/08/2019, chest CT 07/20/2020. TECHNIQUE: Portable AP view of the chest FINDINGS: Cardiac silhouette is enlarged. Prior median sternotomy. No pneumothorax, pleural effusion, airspace consolidation or overt pulmonary edema. Unchanged prominence of the interstitium. The 7 mm nodule of the left lower lobe described on comparison chest CT is not identified. Degenerative changes of the shoulders and spine. IMPRESSION: Cardiomegaly without acute process. ACT 112: Negative or not required by law. The above report was generated using voice recognition software. It may contain grammatical, syntax or spelling errors. Electronically signed by: Santi Fletcher M.D. 11/21/2020 3:12 PM Discharge Plan Visit Data Chief Complaint: Chest Pain Stated Complaint: CHEST PAIN ED Provider: Reynaldo Key Discharge Problem: Chest pain, exertional Patient Disposition: Admitted As Inpatient Condition: Good Discharge Instructions Interventions: ED Discharge Assessment Last Done: 11/21/20 21:14
[2020-11-21 15:41] LABS: Alanine Aminotransferase 28 U/L (12-78); Albumin Globulin Ratio 0.9 (0.9-2); Albumin Level 3.5 gm/dl (3.4-5.0); Alkaline Phosphatase 142 U/L (45-117); Aspartate Aminotransferase 24 U/L (15-37); BUN Creatinine Ratio 12.7 (10-20); Bilirubin,Total 0.6 mg/dl (0.2-1); Blood Urea Nitrogen 24 mg/dl (7-18); Carbon Dioxide 23 mmol/L (21-32); Chloride 104 mmol/L (98-107); Creatinine Clr Calc Pharmacy 31.7 ml/min; Est GFR (African American) 30.4 ml/min; Est GFR (Non-African American) 26.2 ml/min; Globulin 3.7 gm/dl (2.5-4.0); Glucose 316 mg/dl (70-99); Lipase 227 U/L (73-393); Potassium 4.7 mmol/L (3.5-5.1); Sodium 137 mmol/L (136-145); Total Protein 7.2 gm/dl (6.4-8.2); Troponin I < 0.015 ng/ml (0-0.045)
[2020-11-21] MEDS ORDERED: NITROGLYCERIN SL 0.4 MG/TAB TAB SL STA (16:14)
[2020-11-21 16:17] LABS: Partial Thromboplastin Time 25.5 Seconds (21.0-31.0); Prothrombin Time 10.2 Seconds (9.0-12.0)
[2020-11-21 16:20] LABS: Basophils # (auto) 0.05 K/uL (0-0.2); Basophils % (auto) 0.5 %; Eosinophils # (auto) 0.21 K/uL (0-0.5); Hematocrit (blood only) 38.1 % (37-47); Hemoglobin 11.9 g/dL (12.0-16.0); Immature Granulocytes # (auto) 0.02 K/uL (0.00-0.02); Immature Granulocytes % (auto) 0.2 %; Lymphocytes # (auto) 3.45 K/uL (1.2-3.4); Lymphocytes % (auto) 32.3 %; Mean Corpuscular Hemoglobin 30.1 pg (25-34); Mean Corpuscular Hgb Conc 31.2 g/dL (32-36); Mean Corpuscular Volume 96.5 fL (80-100); Mean Platelet Volume 12.6 fL (7.4-10.4); Monocytes # (auto) 1.26 K/uL (0.11-0.59); Monocytes % (auto) 11.8 %; Neutrophils # (auto) 5.69 K/uL (1.4-6.5); Neutrophils % (auto) 53.2 %; Platelet Count 282 K/uL (130-400); RDW Coefficient of Variation 13.2 % (11.5-14.5); RDW Standard Deviation 46.3 fL (36.4-46.3); Red Blood Count 3.95 M/uL (4.2-5.4); White Blood Count 10.68 K/uL (4.8-10.8)
--- NOTE | 2020-11-21 19:55 | History & Physical Report ---
Date of Service November 21, 2020 Assessment & Plan (1) Chest pain: 70yo female with CAD, HTN, HLP and DM presenting with CP - exertional. Troponin x 2 negative. EKG with no acute changes. -Observation to PCU -Trend troponin x 3 sets -Nitro PRN Chest Pain -Morphine PRN Chest pain -Continue ASA 81mg po daily, Plavix 75mg po daily, Lisinopril 20mg daily, Metoprolol XL 25mg po daily -Consider Cardiology consultation -Will resume Atorvastatin 40mg daily - was prescribed by PCP in May but does not appear on current medication list Present on Admission?: Yes (2) Diabetes: Chronic. Elevated blood sugar today at 316. HgbAC on 11/17/20 = 8.7 -Continue Lantus - will decrease to 40u BID -ISS -Goal blood sugar 100 - 140 Present on Admission?: Yes (3) HTN (hypertension): Blood pressure well controlled. Presently 139/69 -Continue metoprolol, Lisinopril as above -Continue to monitor Present on Admission?: Yes (4) Dyslipidemia: Chronic -Continue Atorvastatin 40mg daily Present on Admission?: Yes (5) Restless legs syndrome: Chronic. Stable -Continue Pramipexole 0.5mg po qHS Present on Admission?: Yes (6) CKD (chronic kidney disease): BUN=24, Cr=1.88 -Avoid nephrotoxic agents -Monitor renal function F/E/N - Heplock. Monitor electrolytes and replete as needed. CC/AHA diet as tolerated Ppx - low risk for DVT. SCDs Code - Full Dispo - Observation to PCU Present on Admission?: Yes History of Present Illness Chief Complaint: chest pain Primary Care Provider: Daniel Gong MD Kathleen Bella is a 70yo C female with longstanding history of CAD s/p multiple stents, s/p CABG x 2V with known occlusion of vein graft to diagonal, history of CHF and prior stress-induced cardiomyopathy diagnosed in November 2019 as well as HTN, HLP, DM, CKD, GERD. She presents today with chest pain. Patient was participating in Pulmonary Rehab today and was using the bike when she developed chest pain - sharp in nature, 7/10 in severity with radiation to her back and left upper arm. She had one additional episode of less severe chest discomfort earlier in the day while doing other exercises. She had some associated dizziness as well as SOB associated with the chest pain. Patient took a Nitro which improved her discomfort to 5/10. Reports her pain being similar to prior episodes related to CAD. No additional complaints - specifically denies fever, chills, palpitations, cough, abdominal pain, nausea, vomiting, diarrhea, constipation. Denies weight gain, orthopnea, edema Patient follows with Cardiology - Last saw Dr. Cordero in November 2019 Reports being mildly active at home. Gets chest pain occasionally with exertion and stress which is relieved with Nitro. She reports taking appx 3-4 Nitro per month for chest discomfort. She is fully vaccinated against Covid-19 In the ER patient afebrile, HD stable, NAD. Still with mild left sided chest discomfort/soreness. ER Course: Morphine 4mg IV, Nitro 0.4mg SL, Zofran 4mg IV Allergies Allergy/AdvReac Type Severity Reaction Status Date / Time Penicillins Allergy Intermediate Numbness Verified 11/21/20 18:15 of lips prasugrel Allergy Intermediate RASH,ITCHY Verified 11/21/20 18:15 nickel Allergy Mild Rash Verified 11/21/20 18:15 Home Medications Medication Instructions Recorded Confirmed Type Probiotic 1 cap PO QAM 02/16/18 11/21/20 History ascorbic acid (vitamin C) 1,000 mg PO QAM 02/16/18 11/21/20 History magnesium oxide 400 mg PO BID 02/16/18 11/21/20 History metoprolol succinate 25 mg PO QAM 02/16/18 11/21/20 History multivitamin [Multiple Vitamins] 1 tab PO QAM 02/16/18 11/21/20 History pramipexole 0.5 mg PO HS 02/16/18 11/21/20 History zinc 50 mg PO QAM 02/16/18 11/21/20 History clopidogrel 75 mg PO QAM #32 tab 02/18/18 11/21/20 Rx cyanocobalamin (vitamin B-12) 5,000 mcg PO DAILY tab 03/18/19 11/21/20 History 5,000 mcg disintegrating tablet ferrous gluconate 324 mg (38 mg 324 mg PO BID tab 03/18/19 11/21/20 History iron) tablet furosemide 40 mg tablet 40 mg PO BID tab 03/18/19 11/21/20 History lisinopril 20 mg tablet 20 mg PO QAM tab 03/18/19 11/21/20 History nitroglycerin 0.4 mg sublingual 0.4 mg SL Q5M PRN #25 tab 03/18/19 11/21/20 History tablet potassium chloride 10 mEq 10 meq PO DAILY #30 tab 03/18/19 11/21/20 History tablet,extended release insulin glargine 100 unit/mL 45 units SUBCUT AMPM ml 12/16/19 11/21/20 History subcutaneous solution insulin lispro 100 unit/mL 0 units SUBCUT ACHS ml 12/16/19 11/21/20 History subcutaneous solution albuterol sulfate 90 mcg/actuation 2 puff INHALATION Q6H PRN #18 g 07/24/20 11/21/20 Rx aerosol inhaler aspirin [Aspir-Low] 81 mg PO DAILY 11/21/20 11/21/20 History Past Med/Surg History Medical History Abnormal diffusion capacity determined by pulmonary function test Angina pectoris HAS BLOCKAGE AND PLANNED HEART CATH WITH STENT 03/22/19 CAD (coronary artery disease) Chronic combined systolic and diastolic CHF (congestive heart failure) CKD stage 3 due to type 2 diabetes mellitus DM type 2 (diabetes mellitus, type 2) Dyslipidemia GERD (gastroesophageal reflux disease) HTN (hypertension) Myocardial infarction 01/2018 - HEART CATH AND ONE OF DOUBLE VESSEL IS BLOCKED AND NO STENT. FOLLOW WITH DR CORDERO Restless legs syndrome Restrictive lung disease Surgical History H/O heart artery stent TOTAL OF 5 STENTS, LAST ONE WAS PLACED 03/2019 History of open heart surgery 2017 CABG X 2 [facility] History of open reduction and internal fixation (ORIF) procedure RIGHT HIP History of total abdominal hysterectomy and bilateral salpingo-oophorectomy Hx laparoscopic cholecystectomy Hx of colonoscopy Hx of splenectomy Family History Unknown Diabetes Social History Smoking Status: Never smoker Second Hand Exposure: No; Hx Alcohol Use: No Hx Substance Use: No Preferred Language: Serbian Communication Ability: Effective Visual Impairment: No Limitations Cardiology Technologist Required: No Beliefs That Will Affect Care: None marital status: Current Living Situation: Spouse Feels Safe at Home: Yes Safety Concerns: Feels Safe At This Time Assistive Devices: Glasses Review of Systems Review of Systems: All systems reviewed & are unremarkable except as noted in HPI & below Physical Exam Physical Exam: General: patient resting comfortably, NAD, non-toxic in appearance, AA&O x 4, anxious Skin: warm, dry, intact, no rashes or lesions HEENT: NC/AT, PERRL, EOMI, anicteric sclera, conjunctiva without injection, external ear normal to inspection and nontender, nares patent, moist mucus membranes, dentition intact, no oropharyngeal lesions, neck supple, trachea midline, no LAD, no thyromegaly, no JVD Heart: +S1/S2, regular, no m/r/g, no chest wall discomfort Lungs: equal air entry bilaterally, no rales/rhonchi/wheezes Abd: +BS, soft, NT/ND, no masses/organomegaly/ascites Ext: warm, 2+ pulses in UE/LE bilaterally, no clubbing/cyanosis or edema Neuro: nonfocal, patient AA&O x 4, speech intact, no facial droop, moving all extremities on command with equal strength 5/5 Results & Data Results & Data ([facility]) Vital Signs (Past 12 Hours) Vital Signs Temp Pulse Pulse Resp BP BP Pulse Ox 11/21/20 19:31 81 14 164/75 H 100 11/21/20 19:30 82 12 11/21/20 19:15 81 17 167/78 H 100 11/21/20 19:01 80 16 159/77 H 100 11/21/20 18:45 82 12 141/63 H 100 11/21/20 18:30 82 16 147/75 H 100 11/21/20 18:15 84 15 162/78 H 100 11/21/20 18:00 81 12 152/74 H 100 11/21/20 17:45 83 16 163/72 H 100 11/21/20 17:30 86 12 159/79 H 100 11/21/20 17:15 86 15 156/74 H 100 11/21/20 17:01 88 12 154/70 H 100 11/21/20 16:46 90 14 130/71 99 11/21/20 16:30 90 12 143/69 H 98 11/21/20 16:13 91 H 18 173/74 H 99 11/21/20 16:10 89 12 173/74 H 97 11/21/20 16:05 92 H 15 169/70 H 97 11/21/20 16:01 91 H 16 98 11/21/20 16:00 91 H 13 170/74 H 97 11/21/20 15:56 90 16 165/63 H 97 11/21/20 15:50 92 H 23 136/61 97 11/21/20 15:47 98 11/21/20 15:46 91 H 13 98 11/21/20 15:45 91 H 11 L 141/64 H 98 11/21/20 15:40 88 14 142/65 H 97 11/21/20 15:35 90 15 136/66 98 11/21/20 15:30 91 H 16 136/74 11/21/20 15:25 90 16 139/68 94 11/21/20 15:23 88 15 93 11/21/20 15:20 87 16 142/66 H 94 11/21/20 14:43 36.8 C 98 H 29 H 165/78 H 99 Laboratory Results Laboratory Results WBC 10.68 K/uL (4.8-10.8) 11/21/20 15:54 RBC 3.95 M/uL (4.2-5.4) L 11/21/20 15:54 Hgb 11.9 g/dL (12.0-16.0) L 11/21/20 15:54 Hct 38.1 % (37-47) 11/21/20 15:54 MCV 96.5 fL (80-100) 11/21/20 15:54 MCH 30.1 pg (25-34) 11/21/20 15:54 MCHC 31.2 g/dL (32-36) L 11/21/20 15:54 RDW Std Deviation 46.3 fL (36.4-46.3) 11/21/20 15:54 RDW Coeff of Taylor 13.2 % (11.5-14.5) 11/21/20 15:54 Plt Count 282 K/uL (130-400) 11/21/20 15:54 MPV 12.6 fL (7.4-10.4) H 11/21/20 15:54 Immature Gran % (Auto) 0.2 % 11/21/20 15:54 Neut % (Auto) 53.2 % 11/21/20 15:54 Lymph % (Auto) 32.3 % 11/21/20 15:54 [place] % (Auto) 11.8 % 11/21/20 15:54 Eos % (Auto) 2.0 % 11/21/20 15:54 Baso % (Auto) 0.5 % 11/21/20 15:54 Neut # (Auto) 5.69 K/uL (1.4-6.5) 11/21/20 15:54 Lymph # (Auto) 3.45 K/uL (1.2-3.4) H 11/21/20 15:54 [place] # (Auto) 1.26 K/uL (0.11-0.59) H 11/21/20 15:54 Eos # (Auto) 0.21 K/uL (0-0.5) 11/21/20 15:54 Baso # (Auto) 0.05 K/uL (0-0.2) 11/21/20 15:54 Immature Gran # (Auto) 0.02 K/uL (0.00-0.02) 11/21/20 15:54 Absolute Nucleated RBC Cancelled 11/21/20 14:53 Nucleated RBC % (auto) Cancelled 11/21/20 14:53 Neutrophils % (Manual) Cancelled 11/21/20 14:53 Band Neutrophils % Cancelled 11/21/20 14:53 Lymphocytes % (Manual) Cancelled 11/21/20 14:53 Prolymphocyte % Cancelled 11/21/20 14:53 Reactive Lymphs % (Man) Cancelled 11/21/20 14:53 Monocytes % (Manual) Cancelled 11/21/20 14:53 Eosinophils % (Manual) Cancelled 11/21/20 14:53 Basophils % (Manual) Cancelled 11/21/20 14:53 Metamyelocytes % (Man) Cancelled 11/21/20 14:53 Myelocytes % (Man) Cancelled 11/21/20 14:53 Promyelocytes % (Man) Cancelled 11/21/20 14:53 Blast Cells % (Manual) Cancelled 11/21/20 14:53 Plasma Cell % (Manual) Cancelled 11/21/20 14:53 Other Cells % Cancelled 11/21/20 14:53 Nucleated RBC % Cancelled 11/21/20 14:53 Neutrophils # (Manual) Cancelled 11/21/20 14:53 Band Neutrophils # Cancelled 11/21/20 14:53 Total Absolute Neuts Cancelled 11/21/20 14:53 Lymphocytes # (Manual) Cancelled 11/21/20 14:53 Prolymphocyte # Cancelled 11/21/20 14:53 Reactive Lymphs # Cancelled 11/21/20 14:53 Total Abs Lymphocytes Cancelled 11/21/20 14:53 Monocytes # (Manual) Cancelled 11/21/20 14:53 Eosinophils # (Manual) Cancelled 11/21/20 14:53 Basophils # (Manual) Cancelled 11/21/20 14:53 Metamyelocytes # (Man) Cancelled 11/21/20 14:53 Myelocytes # (Manual) Cancelled 11/21/20 14:53 Promyelocytes # (Man) Cancelled 11/21/20 14:53 Blast Cells # (Man) Cancelled 11/21/20 14:53 Plasma Cell # (Manual) Cancelled 11/21/20 14:53 Other Cells # Cancelled 11/21/20 14:53 Nucleated RBCs # (Man) Cancelled 11/21/20 14:53 Hypersegmented Neuts Cancelled 11/21/20 14:53 Hyposegmented Neuts Cancelled 11/21/20 14:53 Hypogranular Neuts Cancelled 11/21/20 14:53 Large Granular Lymphs Cancelled 11/21/20 14:53 # Lrg Granular Lymphs Cancelled 11/21/20 14:53 Hairy Cells Cancelled 11/21/20 14:53 Smudge Cells Cancelled 11/21/20 14:53 Toxic Granulation Cancelled 11/21/20 14:53 Toxic Vacuolation Cancelled 11/21/20 14:53 Dohle Bodies Cancelled 11/21/20 14:53 Shruthi Rods Cancelled 11/21/20 14:53 Platelet Estimate Cancelled 11/21/20 14:53 Hypogranular Platelets Cancelled 11/21/20 14:53 Clumped Platelets Cancelled 11/21/20 14:53 Giant Platelets Cancelled 11/21/20 14:53 Platelet Satelliting Cancelled 11/21/20 14:53 RBC Morphology Cancelled 11/21/20 14:53 Polychromasia Cancelled 11/21/20 14:53 Hypochromasia Cancelled 11/21/20 14:53 Poikilocytosis Cancelled 11/21/20 14:53 Basophilic Stippling Cancelled 11/21/20 14:53 Anisocytosis Cancelled 11/21/20 14:53 Microcytosis Cancelled 11/21/20 14:53 Macrocytosis Cancelled 11/21/20 14:53 Spherocytes Cancelled 11/21/20 14:53 Pappenheimer Bodies Cancelled 11/21/20 14:53 Sickle Cells Cancelled 11/21/20 14:53 Target Cells Cancelled 11/21/20 14:53 Tear Drop Cells Cancelled 11/21/20 14:53 Ovalocytes Cancelled 11/21/20 14:53 Stomatocytes Cancelled 11/21/20 14:53 [place]-Speed Bodies Cancelled 11/21/20 14:53 Echinocytes Cancelled 11/21/20 14:53 Acanthocytes (Spur) Cancelled 11/21/20 14:53 Rouleaux Cancelled 11/21/20 14:53 RBC Agglutinates Cancelled 11/21/20 14:53 Schistocytes Cancelled 11/21/20 14:53 RBC Morph Comment Cancelled 11/21/20 14:53 Sezary Cell Cancelled 11/21/20 14:53 PT 10.2 Seconds (9.0-12.0) 11/21/20 15:46 INR 1.0 (0.9-1.1) 11/21/20 15:46 APTT 25.5 Seconds (21.0-31.0) 11/21/20 15:46 PTT Ratio 1.0 11/21/20 15:46 Sodium 137 mmol/L (136-145) 11/21/20 14:53 Potassium 4.7 mmol/L (3.5-5.1) 11/21/20 14:53 Chloride 104 mmol/L (98-107) 11/21/20 14:53 Carbon Dioxide 23 mmol/L (21-32) 11/21/20 14:53 Anion Gap 10.0 (3-11) 11/21/20 14:53 BUN 24 mg/dl (7-18) H 11/21/20 14:53 Creatinine 1.88 mg/dl (0.6-1.2) H 11/21/20 14:53 Est Cr Clr Drug Dosing 31.7 ml/min 11/21/20 14:53 Est GFR ( Amer) 30.4 ml/min 11/21/20 14:53 Est GFR (Non-Af Amer) 26.2 ml/min 11/21/20 14:53 BUN/Creatinine Ratio 12.7 (10-20) 11/21/20 14:53 Glucose 316 mg/dl (70-99) H* 11/21/20 14:53 Calcium 9.0 mg/dl (8.5-10.1) 11/21/20 14:53 Phosphorus 3.2 mg/dl (2.5-4.9) 11/21/20 21:47 Magnesium 2.2 mg/dl (1.8-2.4) 11/21/20 21:47 Total Bilirubin 0.6 mg/dl (0.2-1) 11/21/20 14:53 AST 24 U/L (15-37) 11/21/20 14:53 ALT 28 U/L (12-78) 11/21/20 14:53 Alkaline Phosphatase 142 U/L (45-117) H 11/21/20 14:53 Troponin I < 0.015 ng/ml (0-0.045) 11/21/20 21:47 Total Protein 7.2 gm/dl (6.4-8.2) 11/21/20 14:53 Albumin 3.5 gm/dl (3.4-5.0) 11/21/20 14:53 Globulin 3.7 gm/dl (2.5-4.0) 11/21/20 14:53 Albumin/Globulin Ratio 0.9 (0.9-2) 11/21/20 14:53 Lipase 227 U/L (73-393) 11/21/20 14:53 Beta-Hydroxybutyric Acd mg/dl (0.2-2.81) 11/21/20 14:53 COVID-19 Eval Order Covid19 at [facility] 11/21/20 18:10 SARS-CoV-2 (PCR) NEGATIVE (Negative) 11/21/20 18:10 Impressions Chest X-Ray 11/21/20 14:49 XR chest 1V portable HISTORY: 70 years-old Female Chest Pain acute atypical chest pain COMPARISON: Chest radiograph 12/08/2019, chest CT 07/20/2020. TECHNIQUE: Portable AP view of the chest FINDINGS: Cardiac silhouette is enlarged. Prior median sternotomy. No pneumothorax, pleural effusion, airspace consolidation or overt pulmonary edema. Unchanged prominence of the interstitium. The 7 mm nodule of the left lower lobe described on comparison chest CT is not identified. Degenerative changes of the shoulders and spine. IMPRESSION: Cardiomegaly without acute process. ACT 112: Negative or not required by law. The above report was generated using voice recognition software. It may contain grammatical, syntax or spelling errors. Electronically signed by: Santi Fletcher M.D. 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 Diabetes mellitus complication status: without complication HTN (hypertension) I10 Hypertension type: essential hypertension Dyslipidemia E78.5 Restless legs syndrome G25.81 CKD (chronic kidney disease) N18.9 Chronic kidney disease stage: unspecified stage (1) Chest pain Chest pain type: unspecified Qualified Code(s): R07.9 - Chest pain, unspecified (2) Diabetes Diabetes mellitus type: type 2 Diabetes mellitus halfway 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
[2020-11-21] MEDS ORDERED: POLYETHYLENE (MIRALAX) 17 GM PACK PO PRN (21:35)
[2020-11-21] MEDS ORDERED: MoRPHine SULFATE 2 MG/ML CARP IV PRN (21:35)
[2020-11-21] MEDS ORDERED: NITROGLYCERIN SL 0.4 MG/TAB TAB SL PRN (21:35)
[2020-11-21] MEDS ORDERED: ONDANSETRON INJ 2 MG/ML 2 ML VIAL IV PRN (21:35)
[2020-11-21] MEDS ORDERED: DOCUSATE SODIUM 100 MG CAP PO PRN (21:35)
[2020-11-21] MEDS ORDERED: ALBUTEROL HFA 8 GM INHALER INH PRN (21:35)
[2020-11-21] MEDS ORDERED: PRAMIPEXOLE DIHYDROCHLO 0.5 MG TAB PO SCH (21:35)
[2020-11-21] MEDS ORDERED: GLUCOSE 40% GEL 15 GM TUBE PO PRN ×2 (21:52→22:00)
[2020-11-21] MEDS ORDERED: GLUCOSE 10 TABS/TUBE PO PRN ×2 (21:52→22:00)
[2020-11-21] MEDS ORDERED: DEXTROSE 50% 50 ML SYRINGE IV PRN ×2 (21:52→22:00)
[2020-11-21] MEDS ORDERED: GLUCAGON FOR INJ 1 MG VIAL SQ PRN (21:52)
[2020-11-21] MEDS ORDERED: CARBOHYDRATES FOR HYPOGLYCEMIA PO PRN ×2 (21:52→22:00)
[2020-11-21] MEDS ORDERED: GLUCAGON FOR INJ 1 MG VIAL IM PRN (22:00)
[2020-11-21] MEDS: FUROSEMIDE 40 MG TAB PO SCH (22:14)
[2020-11-21] MEDS: MAGNESIUM OXIDE 400 MG TAB PO SCH (22:14)
[2020-11-21] MEDS: FERROUS GLUCONATE 324 MG TAB PO SCH (22:15)
[2020-11-21] MEDS: INSULIN GLARGINE SOLOSTAR 100 UNITS/ML 3 ML PEN SQ SCH (22:16)
[2020-11-21 22:17] LABS: Magnesium 2.2 mg/dl (1.8-2.4); Phosphorus 3.2 mg/dl (2.5-4.9); Troponin I < 0.015 ng/ml (0-0.045)
[2020-11-21] MEDS ORDERED: diphenhydrAMINE Capsule 25 MG CAP PO ONE (23:12)
[2020-11-22 04:13] LABS: Basophils # (auto) 0.06 K/uL (0-0.2); Basophils % (auto) 0.6 %; Eosinophils # (auto) 0.52 K/uL (0-0.5); Eosinophils % (auto) 5.5 %; Hematocrit (blood only) 37.8 % (37-47); Hemoglobin 11.9 g/dL (12.0-16.0); Immature Granulocytes # (auto) 0.02 K/uL (0.00-0.02); Immature Granulocytes % (auto) 0.2 %; Lymphocytes # (auto) 3.44 K/uL (1.2-3.4); Lymphocytes % (auto) 36.1 %; Mean Corpuscular Hemoglobin 29.9 pg (25-34); Mean Corpuscular Hgb Conc 31.5 g/dL (32-36); Mean Platelet Volume 12.1 fL (7.4-10.4); Monocytes # (auto) 1.55 K/uL (0.11-0.59); Monocytes % (auto) 16.2 %; Neutrophils # (auto) 3.95 K/uL (1.4-6.5); Neutrophils % (auto) 41.4 %; Platelet Count 277 K/uL (130-400); RDW Coefficient of Variation 13.2 % (11.5-14.5); RDW Standard Deviation 45.5 fL (36.4-46.3); Red Blood Count 3.98 M/uL (4.2-5.4); White Blood Count 9.54 K/uL (4.8-10.8)
[2020-11-22 04:30] LABS: Alanine Aminotransferase 32 U/L (12-78); Albumin Level 3.1 gm/dl (3.4-5.0); Aspartate Aminotransferase 26 U/L (15-37); Bilirubin Direct 0.2 mg/dl (0-0.2); Blood Urea Nitrogen 21 mg/dl (7-18); Calcium 8.7 mg/dl (8.5-10.1); Carbon Dioxide 32 mmol/L (21-32); Chloride 106 mmol/L (98-107); Creatinine Clr Calc Pharmacy 39.5 ml/min; Est GFR (African American) 38.7 ml/min; Est GFR (Non-African American) 33.4 ml/min; Glucose 171 mg/dl (70-99); Potassium 4.1 mmol/L (3.5-5.1); Sodium 140 mmol/L (136-145)
[2020-11-22 04:35] LABS: Alkaline Phosphatase 105 U/L (45-117); Bilirubin,Total 0.9 mg/dl (0.2-1); Total Protein 6.3 gm/dl (6.4-8.2); Troponin I < 0.015 ng/ml (0-0.045)
--- NOTE | 2020-11-22 06:31 | Electrocardiogram Report ---
Test Reason : Blood Pressure : / mmHG Vent. Rate : 100 BPM Atrial Rate : 100 BPM P-R Int : 240 ms QRS Dur : 104 ms QT Int : 348 ms P-R-T Axes : 061 -36 088 degrees QTc Int : 448 ms Sinus rhythm with 1st degree A-V block Left axis deviation Minimal voltage criteria for LVH, may be normal variant Nonspecific T wave abnormality Abnormal ECG When compared with ECG of 08-DEC-2019 15:51, No significant change was found Confirmed by Erick Jennings ([id number]) on 11/22/2020 6:30:47 AM Referred By: Daniel Gong Confirmed By:Erick Jennings
[2020-11-22] MEDS: FERROUS GLUCONATE 324 MG TAB PO SCH (08:01)
[2020-11-22] MEDS: FUROSEMIDE 40 MG TAB PO SCH (08:01)
[2020-11-22] MEDS: MAGNESIUM OXIDE 400 MG TAB PO SCH (08:01)
[2020-11-22] MEDS: INSULIN GLARGINE SOLOSTAR 100 UNITS/ML 3 ML PEN SQ SCH (08:05)
[2020-11-22] MEDS ORDERED: ASPIRIN 81 MG ECTAB PO SCH (09:00)
[2020-11-22] MEDS ORDERED: CLOPIDOGREL BISULFATE 75 MG TAB PO SCH (09:00)
[2020-11-22] MEDS ORDERED: lisinopril 20 MG TAB PO SCH (09:00)
[2020-11-22] MEDS ORDERED: ATORVASTATIN 40 MG TAB PO SCH (09:00)
[2020-11-22] MEDS ORDERED: METOPROLOL SUCC 25MG EXT REL TAB PO SCH (09:00)
--- NOTE | 2020-11-22 11:40 | Discharge Summary ---
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 She presents today with chest pain. Patient was participating in Pulmonary Rehab today and was using the bike when she developed chest pain - sharp in nature, 7/10 in severity with radiation to her back and left upper arm. She had one additional episode of less severe chest discomfort earlier in the day while doing other exercises. She had some associated dizziness as well as SOB associated with the chest pain. Patient took a Nitro which improved her discomfort to 5/10. Reports her pain being similar to prior episodes related to CAD. No additional complaints - specifically denies fever, chills, palpitations, cough, abdominal pain, nausea, vomiting, diarrhea, constipation. Denies weight gain, orthopnea, edema Patient follows with Cardiology - Last saw Dr. Robledo in November 2019 Reports being mildly active at home. Gets chest pain occasionally with exertion and stress which is relieved with Nitro. She reports taking appx 3-4 Nitro per month for chest discomfort. She is fully vaccinated against Covid-19 In the ER patient afebrile, HD stable, NAD. Still with mild left sided chest discomfort/soreness. ER Course: Morphine 4mg IV, Nitro 0.4mg SL, Zofran 4mg IV Principal Diagnosis Chest pain, exertional Discharge Exam Constitutional WD/WN, vitals as above + obese Neck trachea midline, no thyromegaly Respiratory normal respiratory effort, lungs clear to auscultation Cardiovascular RRR, no murmur, no edema Gastrointestinal (Abdomen) normal bowel sounds, soft, nontender, no hepatosplenomegaly Musculoskeletal no cyanosis or clubbing, extremities motor strength 5/5 Skin no rashes, warm and dry Neurologic normal touch/pain/proprioception, CN's II-XI intact bilaterally, moves all extremities and awake; no focal motor deficits Psychiatric A+Ox3, euthymic affect Discharge Data Allergies Allergy/AdvReac Type Severity Reaction Status Date / Time Penicillins Allergy Intermediate Numbness Verified 11/21/20 18:15 of lips prasugrel Allergy Intermediate RASH,ITCHY Verified 11/21/20 18:15 nickel Allergy Mild Rash Verified 11/21/20 18:15 Consultations 11/21/20 17:03 ED Decision to Admit Stat Hospital Course (1) Chest pain: 70yo female with CAD, HTN, HLP and DM presenting with CP - exertional. Troponin x 2 negative. EKG with no acute changes. -Observation to PCU -- no issues on telemetry - 3rd troponin was also negative -Nitro PRN Chest Pain -Morphine PRN Chest pain -Continue ASA 81mg po daily, Plavix 75mg po daily, Lisinopril 20mg daily, Metoprolol XL 25mg po daily Atorvastatin 40mg daily stable on 11/22, no further chest pain d/w her donor center technician Dr. Robledo, he agrees with arranging a Lexiscan stress test as outpatient instructed patient to avoid any strenuous activity until she gets the stress test (2) Diabetes: HgbAC on 11/17/20 = 8.7 -Continue Lantus -ISS -Goal blood sugar 100 - 140 cosmetology educator consult, determined that the patient was not taking Humalog prior to meals as she should, was just taking it TID at random times patient now understands the importance of taking at meal time to prevent post prandial hyperglycemia she will follow up with PCP (3) HTN (hypertension): Blood pressure well controlled -Continue metoprolol, Lisinopril as above -Continue to monitor (4) Dyslipidemia: Chronic -Continue Atorvastatin 40mg daily (5) Restless legs syndrome: Chronic. Stable -Continue Pramipexole 0.5mg po qHS (6) CKD (chronic kidney disease): BUN=24, Cr=1.88 -Avoid nephrotoxic agents -Monitor renal function F/E/N - [place]. Monitor electrolytes and replete as needed. CC/AHA diet as tolerated Ppx - low risk for DVT. SCDs Code - Full Dispo - Observation to PCU Total Time Total Time Spent Total Time Spent (In Minutes): 20 Total Time Includes: Examination of the Patient, Discharge Planning, Medication Reconciliation and Communication With Other Providers Discharge Plan Discharge Items Patient Disposition: Home - Self-Care Reason For Visit: CHEST PAIN Discharge Diagnosis: Chest pain with history of coronary disease no evidence of acute coronary syndrome, troponin negative x 3 sets Condition on Discharge: Good Goals: follow up with cardiology for Lexiscan stress test Activity: Per Instructions section Sexual Activity: Wait until after follow-up appointment Exercise/Sports: Wait until after follow-up appointment Exercise Comment: no strenuous activity until after stress test Driving/Machine Use: No limitations Weightbearing: Full weightbearing Non-emergency contact: Primary Care Provider and [facility] Packer Call non-emergency contact if: you have any medication questions and your symptoms worsen Follow-up/Referrals: Daniel Gong MD [Primary Care Provider] - 11/27/20 1:45 pm Diet: Carb Consistent or DM2 and Heart Healthy Addtl Attending Provider Instructions: Medications: no major changes - as you discussed with cosmetology educator, please take rapid acting Humalog prior to eating which should help lower HbA1c no evidence of acute coronary syndrome, your troponin levels were all negative no ischemic changes on EKG in the emergency room I discussed with Dr. Robledo, he agrees to Lexiscan stress test as outpatient, his office will help arrange this and will contact you please avoid all strenuous activity until you have your stress test Pending Studies at Discharge: No Stand-Alone Forms: My [facility], Smoking Cessation Medications and DC Order Prescriptions: Continued cyanocobalamin (vitamin B-12) 5,000 mcg tablet,disintegrating 5,000 mcg PO DAILY RF: 0 furosemide 40 mg tablet 40 mg PO BID RF: 0 potassium chloride 10 mEq tablet extended release 10 meq PO DAILY Qty: 30 RF: 0 nitroglycerin 0.4 mg tablet, sublingual 0.4 mg SL Q5M PRN (Reason: Chest Pain) Qty: 25 RF: 0 lisinopril 20 mg tablet 20 mg PO QAM RF: 0 ferrous gluconate 324 mg (38 mg iron) tablet 324 mg PO BID RF: 0 albuterol sulfate 90 mcg/actuation HFA aerosol inhaler 2 puff inhalation Q6H PRN (Reason: Shortness Of Breath Or Wheezing) Qty: 18 RF: 3 metoprolol succinate 25 mg Tablet Extended Release 24 Hr 25 mg PO QAM RF: 0 magnesium oxide 400 mg Capsule 400 mg PO BID RF: 0 Probiotic 3 billion cell Capsule 1 cap PO QAM RF: 0 pramipexole 0.5 mg Tablet 0.5 mg PO HS RF: 0 multivitamin [Multiple Vitamins] Tablet 1 tab PO QAM RF: 0 ascorbic acid (vitamin C) 1,000 mg Tablet Extended Release 1,000 mg PO QAM RF: 0 zinc 50 mg Tablet 50 mg PO QAM RF: 0 clopidogrel 75 mg Tablet 75 mg PO QAM Qty: 32 RF: 6 Lantus U-100 Insulin 100 unit/mL solution 45 units SUBCUT AMPM RF: 0 insulin lispro [Humalog U-100 Insulin] 100 unit/mL solution 12 units SUBCUT TIDWMEAL RF: 0 aspirin 81 mg Tablet,Delayed Release (Dr/Ec) 81 mg PO DAILY RF: 0 Discharge Orders: Discharge Order (Routine); Ordered 11/22/20 Ordered By: Darius Gomez Admission Data Admit Date/Time: 11/21/20 19:54 Attending Provider: Darius Gomez Admit Provider: Ruby Arthur Primary Care Provider: Daniel Gong Other Providers: Arnoldo Smallwood Other Interventions: Discharge Summary Assessment (RN) Last Done: 11/22/20 11:45 Coding Level of Care Code 95700 OBS Care - Discharge Diagnoses Chest pain R07.9 Chest pain type: unspecified Diabetes E11.9; Z79.4 Diabetes mellitus complication status: without complication Diabetes mellitus group home insulin use: with group home use Diabetes mellitus type: type 2 HTN (hypertension) I10 Hypertension type: essential hypertension Dyslipidemia E78.5 Restless legs syndrome G25.81 CKD (chronic kidney disease) N18.9 Chronic kidney disease stage: unspecified stage
[2020-11-22] MEDS ORDERED: INSULIN ASPART 100 UNITS/ML 3 ML PEN SC SCH (22:00)
== END 2020-11-22 12:56 | disposition home or self-care (01) ==
LOC: ED 14:37 → 2S 14:37 → SUATTDRO 19:54 → 2S 21:14

== ENCOUNTER 2022-12-27 13:13 | Observation (INO) ==
[2022-12-27] MEDS ORDERED: ASPIRIN CHEW 324 MG PO STA (13:48)
[2022-12-27] MEDS ORDERED: MoRPHine SULFATE 4 MG/ML 1 ML CARP\\VIAL IV STA (14:03)
[2022-12-27 14:07] LABS: Basophils # (auto) 0.08 K/uL (0-0.2); Basophils % (auto) 0.7 %; Eosinophils # (auto) 0.28 K/uL (0-0.50); Eosinophils % (auto) 2.5 %; Hemoglobin 13.3 g/dl (12.0-16.0); Immature Granulocytes # (auto) 0.03 K/uL (0.01-0.20); Immature Granulocytes % (auto) 0.3 %; Lymphocytes # (auto) 3.17 K/uL (1.2-3.4); Lymphocytes % (auto) 28.7 %; Mean Corpuscular Hemoglobin 29.5 pg (25.0-34.0); Mean Corpuscular Hgb Conc 32.4 g/dL (32.0-36.0); Mean Corpuscular Volume 90.9 fL (80.0-100.0); Mean Platelet Volume 12.2 fL (9.4-12.4); Monocytes # (auto) 1.36 K/uL (0.11-0.59); Monocytes % (auto) 12.3 %; Neutrophils # (auto) 6.12 K/uL (1.40-6.50); Neutrophils % (auto) 55.5 %; Platelet Count 254 K/uL (130-400); RDW Coefficient of Variation 14.1 % (11.5-14.5); RDW Standard Deviation 46.9 fL (36.4-46.3); Red Blood Count 4.51 M/uL (4.20-5.40); White Blood Count 11.04 K/ul (4.8-10.8)
--- NOTE | 2022-12-27 14:15 | XRay Report ---
XR chest 1V portable CLINICAL HISTORY: Chest pain, nonspecific TECHNIQUE: Single frontal radiograph of the chest was obtained. Comparison: Comparison is made to chest radiograph 04/23/2022 FINDINGS: Median sternotomy wires are unchanged. Cardiomegaly is noted. The aortic arch is calcified. The lungs are clear. No evidence of pleural effusion or pneumothorax. IMPRESSION: No acute chest disease. ACT 112: Negative or not required by law. Electronically signed by: Darius Garland M.D. 12/27/2022 2:13 PM
[2022-12-27 14:26] LABS: Albumin Globulin Ratio 1.3 (0.9-2); Albumin Level 4.1 gm/dl (3.4-5.0); BUN Creatinine Ratio 18.5 (10-20); Bilirubin,Total 0.7 mg/dl (0.2-1.0); Calcium 9.5 mg/dl (8.6-10.3); Creatinine Clr Calc Pharmacy 16.7 ml/min; Est GFR (African American) 15.2 ml/min; Est GFR (Non-African American) 13.1 ml/min; Globulin 3.1 gm/dl (2.5-4.0); Potassium 5.2 mmol/L (3.5-5.1); Total Protein 7.2 gm/dl (6.0-8.3)
[2022-12-27 14:30] LABS: Troponin I High Sensitivity 13.6 pg/ml (0-14)
[2022-12-27] MEDS ORDERED: SODIUM CHLORIDE 0.9% 1000ML 500 ML IV ONE ×2 (14:42→15:36)
[2022-12-27] MEDS ORDERED: SODIUM CHLORIDE 0.9% 500 ML IV STA (14:42)
--- NOTE | 2022-12-27 14:45 | Emergency Department Note ---
Impression & Plan Chest pain, ROBERT (acute kidney injury), Blood D-dimer assay positive ED Provider Note NAME: ERMIAS MAZARIEGOS AGE: 72 SEX: F : 1950 ARRIVES VIA: Walk-In INFORMANT: Patient, ED PROVIDER(S): Reynaldo Key DO CHIEF COMPLAINT: Chest pain HPI: The patient is a 72-year-old female who presented to the emergency department for anterior chest pain. The patient does have a history of coronary artery disease as well as coronary artery stenting. She presented to the to the emergency department today for further evaluation. The patient denies having any cough or fever. She states she does have some neck pain and is not sure if this is related. 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 ROS: See above HPI for pertinent positives & negatives. A total of 10 systems reviewed and were otherwise negative. PAST MEDICAL HISTORY: See Below PAST SURGICAL HISTORY: See Below FAMILY HISTORY: See Below SOCIAL HISTORY: See Below HOME MEDICATIONS: See Below ALLERGIES: See Below VITALS: See Below PHYSICAL EXAMINATION: GENERAL: Patient is awake alert in no acute distress patient is resting comfortably and showing no signs of anxiety EYES: The conjunctivae are clear. The pupils are round and reactive. EARS, NOSE, MOUTH AND THROAT: The nose is without any evidence of any deformity. NECK: The neck is nontender and supple. RESPIRATORY: Normal respiratory effort is noted there is no evidence of wheezing rhonchi or rales CARDIOVASCULAR: Regular rate and rhythm noted there no murmurs rubs or gallops normal S1 normal S2. GASTROINTESTINAL: The abdomen is soft. Abdomen is nontender. MUSCULOSKELETAL/EXTREMITIES: There is no evidence of gross deformity full range of motion is noted in the hips and shoulders. SKIN: There is no obvious evidence of any rash. There are no petechiae, pallor or cyanosis noted. NEUROLOGIC: Patient is awake alert and oriented x3 MEDICAL DECISION MAKING: The patient is a 72-year-old female who presented to the emergency department for an evaluation of shortness of breath as well as chest pain. The patient describes anterior chest pain which was similar to previous episodes where she has had coronary syndrome. I discussed the patient's laboratory and radiographic studies with her. She was found to have an elevation in her creatinine compared to baseline. She was treated with IV fluids for elevated potassium as well. She was found have an elevated D-dimer. Dopplers of the lower extremities were obtained but no signs of venous thromboembolic disease were noted. She may require further inpatient management for her chest pain work-up as well as possible further evaluation of the elevated D-dimer. For this reason her case was discussed with the on-call [facility] hospitalist. She was treated with aspirin in the emergency department. She was also given morphine. On reevaluation she was feeling much better. Triage Nursing notes reviewed. Prior medical records reviewed Vital Signs: reviewed and remarkable for no significant abnormalities Differential diagnosis: Cardiac ischemia, aortic dissection, pulmonary embolism, pneumothorax, pneumonia, pericarditis, myocarditis, esophageal rupture, GERD, cholecystitis, pancreatitis, musculoskeletal, as well as other pathologies. ER treatment provided: See below Diagnostics interpreted by me: ECG: EKG was obtained in the emergency department. My interpretation is sinus rhythm at 70 bpm. PVCs were noted. First-degree AV block was noted. LVH was suggested by voltage criteria. This was compared to a tracing from April 23, 2022. No changes were noted. Cardiac Monitoring: An order was placed for continuous cardiac monitoring. The monitor shows a rate of 78 bpm with sinus rhythm. Laboratory studies: As stated above and show below. Imaging studies: See below. Radiographic imaging was reviewed by myself Consultation(s): I discussed this case with Dr. Bauer who is on-call for the [facility] hospitalist group. Past Med/Surg History Medical History Abnormal diffusion capacity determined by pulmonary function test Acute HFrEF (heart failure with reduced ejection fraction) follows with Dr. Cordero CAD (coronary artery disease) Chronic combined systolic and diastolic CHF (congestive heart failure) Chronic kidney disease, stage 4 (severe) CKD stage 3 due to type 2 diabetes mellitus Diabetes Diabetes mellitus type 2, insulin dependent Dyslipidemia History of angina pectoris RESOLVED > HAS BLOCKAGE AND PLANNED HEART CATH WITH STENT 03/22/19 HTN (hypertension) Myocardial infarction 01/2018 - HEART CATH AND ONE OF DOUBLE VESSEL IS BLOCKED AND NO STENT. FOLLOW WITH DR CORDERO NSTEMI (non-ST elevated myocardial infarction) 2017 Restless legs syndrome Restrictive lung disease rare res inh use Vitamin D deficiency Surgical History H/O heart artery stent TOTAL OF 5 STENTS, LAST ONE WAS PLACED 03/2019 History of open heart surgery 2017 CABG X 2 [facility] History of open reduction and internal fixation (ORIF) procedure RIGHT HIP History of tonsillectomy History of total abdominal hysterectomy and bilateral salpingo-oophorectomy Hx laparoscopic cholecystectomy Hx of cataract extraction lt. Hx of colonoscopy Hx of right cataract extraction Hx of splenectomy Family History Unknown No problems noted. Father Colorectal cancer Myocardial infarction Mother Myocardial infarction Grandmother Diabetes Sister Skin cancer Myocardial infarction Denies family history of Ovarian cancer Prostate cancer Breast cancer Social History Smoking Status: Never smoker Second Hand Exposure: Yes (as a child); Do You Dip or Chew Tobacco: No; Hx Alcohol Use: No Hx Substance Use: No Preferred Language: Serbian Communication Ability: Effective Visual Impairment: No Limitations Hearing Ability: Normal Tourist Information Officer Required: No Beliefs That Will Affect Care: None marital status: Current Living Situation: Spouse current occupational status: retired Feels Safe at Home: Yes Childhood Exposure to Second-Hand Smoke: Yes Diet: regular Dental Care, Regularly: No Physical Activity Frequency: Does not Exercise Seatbelt Use: always Sunscreen Use: Yes Assistive Devices: Glasses Allergies Allergies Allergy/AdvReac Type Severity Reaction Status Date / Time isosorbide Allergy Intermediate Rash Verified 12/27/22 16:12 nickel Allergy Intermediate Rash Verified 12/27/22 16:12 Penicillins Allergy Intermediate Numbness Verified 12/27/22 16:12 of lips prasugrel Allergy Intermediate RASH,ITCHY Verified 12/27/22 16:12 Home Meds Home Medications Medication Instructions Recorded Confirmed ascorbic acid (vitamin C) 1,000 mg 1,000 mg PO QAM 02/16/18 12/27/22 tablet,extended release lactobacillus combination no.4 3 1 cap PO HS 02/16/18 12/27/22 billion cell capsule (Probiotic) magnesium oxide 400 mg PO BID 02/16/18 12/27/22 multivitamin (Multiple Vitamins 1 tab PO QAM 02/16/18 12/27/22 tablet) cyanocobalamin (vitamin B-12) 5,000 mcg PO QAM 03/18/19 12/27/22 5,000 mcg disintegrating tablet ferrous gluconate 324 mg (38 mg 324 mg PO BID 03/18/19 12/27/22 iron) tablet aspirin 81 mg tablet,delayed 81 mg PO QAM 11/21/20 12/27/22 release metoprolol succinate 25 mg 50 mg PO QAM 02/11/22 12/27/22 tablet,extended release 24 hr insulin lispro 100 unit/mL 1 sliding scale dose subcut TID 12/27/22 12/27/22 subcutaneous pen (Humalog KwikPen (U-100) Insulin) triamcinolone acetonide 0.1 % 1 applic topical BID PRN Skin 12/27/22 12/27/22 topical cream Irritation zinc gluconate 50 mg tablet 50 mg PO DAILY 12/27/22 12/27/22 Previous Rx's Medication Instructions Recorded albuterol sulfate 90 mcg/actuation 2 puff inhalation Q6H PRN 07/24/20 aerosol inhaler Shortness Of Breath Or Wheezing #18 grams furosemide 40 mg tablet 40 mg PO BID #180 tabs 01/08/22 pen needle, diabetic 31 gauge x #500 ea 01/14/22 5/16" (BD Ultra-Fine Short Pen Needle) sertraline 100 mg tablet 150 mg PO DAILY 90 days #135 tabs 03/21/22 hydroxyzine HCl 25 mg tablet 25 mg PO QID PRN itching #90 tabs 04/08/22 nitroglycerin 0.4 mg sublingual 0.4 mg sublingual Q5M PRN Chest 04/08/22 tablet Pain #25 tabs Diabetic Shoes #1 ea 04/19/22 blood sugar diagnostic (OneTouch #100 ea 04/29/22 Verio test strips) pramipexole 0.5 mg tablet 0.5 mg PO HS #90 tabs 06/14/22 atorvastatin 10 mg tablet 10 mg PO QPM #90 tabs 06/25/22 flash glucose scanning reader #1 ea 06/25/22 flash glucose sensor #1 ea 06/25/22 lisinopril 40 mg tablet 40 mg PO QAM #90 tabs 07/10/22 blood-glucose meter (OneTouch #1 ea 07/25/22 Verio Meter) blood-glucose meter,continuous #1 ea 08/02/22 (Dexcom G6 Traffic Counter) blood-glucose transmitter (Dexcom #1 ea 08/02/22 G6 Transmitter device) isosorbide mononitrate 30 mg 30 mg PO DAILY #90 tabs 08/15/22 tablet,extended release 24 hr clopidogrel 75 mg tablet 75 mg PO QAM #32 tabs 08/16/22 potassium chloride 20 mEq 20 meq PO DAILY #30 tabs 10/21/22 tablet,extended release insulin glargine 100 unit/mL (3 35 unit (0.35 mL) subcut BID 90 11/01/22 mL) subcutaneous pen (Lantus days #63 mL Solostar U-100 Insulin) blood-glucose sensor (Dexcom G6 #3 ea 12/16/22 Sensor device) semaglutide 1 mg/dose (4 mg/3 mL) 1 mg (0.75 mL) subcut WK #3 mL 12/16/22 subcutaneous pen injector Results & Data (ED) Vital Signs Vital Signs - 24 hr 12/27/22 13:19 12/27/22 13:36 12/27/22 13:40 Temperature 36.2 C L Temperature Source Temporal Artery Scan Pulse Rate 84 77 Pulse Rate [Finger] Pulse Rhythm Pulse Rhythm [Finger] Pulse Strength [Finger] Respiratory Rate 20 Respiratory Effort / Characteristics Respiratory Depth Blood Pressure 99/65 L Blood Pressure [Left Arm] Blood Pressure Mean 76 Blood Pressure Mean [Left Arm] Blood Pressure Position [Left Arm] Pulse Oximetry 95 Oxygen Delivery Method Room Air Room Air Sepsis Recent Fever Within 48 Hours No Sepsis New/Unexplained Change in Mental Status N/A Sepsis Action Taken by Nursing No Action Required 12/27/22 13:40 12/27/22 13:48 12/27/22 15:00 Temperature Temperature Source Pulse Rate 82 78 Pulse Rate [Finger] 78 Pulse Rhythm Regular Regular Pulse Rhythm [Finger] Regular Pulse Strength [Finger] Normal Respiratory Rate 20 20 20 Respiratory Effort / Characteristics Non-Labored Spontaneous Respiratory Depth Normal Blood Pressure Blood Pressure [Left Arm] 132/72 Blood Pressure Mean Blood Pressure Mean [Left Arm] 92 Blood Pressure Position [Left Arm] Sitting Pulse Oximetry 94 94 94 Oxygen Delivery Method Room Air Room Air Room Air Sepsis Recent Fever Within 48 Hours Sepsis New/Unexplained Change in Mental Status Sepsis Action Taken by Nursing 12/27/22 16:09 Temperature Temperature Source Pulse Rate Pulse Rate [Finger] 78 Pulse Rhythm Pulse Rhythm [Finger] Regular Pulse Strength [Finger] Normal Respiratory Rate 20 Respiratory Effort / Characteristics Non-Labored Spontaneous Respiratory Depth Normal Blood Pressure Blood Pressure [Left Arm] 119/65 Blood Pressure Mean Blood Pressure Mean [Left Arm] 83 Blood Pressure Position [Left Arm] Sitting Pulse Oximetry 98 Oxygen Delivery Method Room Air Sepsis Recent Fever Within 48 Hours Sepsis New/Unexplained Change in Mental Status Sepsis Action Taken by Correction Medications Current Medication List: was personally reviewed by me Laboratory Data Attestation: I reviewed the patient's lab results. 12/27/22 13:49 12/27/22 13:49 Lab Results 12/27/22 12/27/22 12/27/22 Range/Units 13:49 13:49 13:49 WBC 11.04 H (4.8-10.8) K/ul RBC 4.51 (4.20-5.40) M/uL Hgb 13.3 (12.0-16.0) g/dl Hct 41.0 (37.0-47.0) % MCV 90.9 (80.0-100.0) fL MCH 29.5 (25.0-34.0) pg MCHC 32.4 (32.0-36.0) g/dL RDW Std Deviation 46.9 H (36.4-46.3) fL RDW Coeff of Taylor 14.1 (11.5-14.5) % Plt Count 254 (130-400) K/uL MPV 12.2 (9.4-12.4) fL Immature Gran % (Auto) 0.3 % Neut % (Auto) 55.5 % Lymph % (Auto) 28.7 % Hamlin % (Auto) 12.3 % Eos % (Auto) 2.5 % Baso % (Auto) 0.7 % Neut # (Auto) 6.12 (1.40-6.50) K/uL Lymph # (Auto) 3.17 (1.2-3.4) K/uL Hamlin # (Auto) 1.36 H (0.11-0.59) K/uL Eos # (Auto) 0.28 (0-0.50) K/uL Baso # (Auto) 0.08 (0-0.2) K/uL Immature Gran # (Auto) 0.03 (0.01-0.20) K/uL PT 11.1 (9.0-12.0) Seconds INR 1.0 (0.9-1.1) APTT 29.8 (21.0-31.0) Seconds PTT Ratio 1.1 D-Dimer 1560 H* (0-500) ug/L FEU Sodium 135 L (136-145) mmol/L Potassium 5.2 H (3.5-5.1) mmol/L Chloride 106 (98-107) mmol/L Carbon Dioxide 20 L (21-32) mmol/L Anion Gap 9 (3-11) BUN 61 H (6-23) mg/dl Creatinine 3.30 H (0.6-1.2) mg/dl Est Cr Clr Drug Dosing 16.7 ml/min Est GFR ( Amer) 15.2 ml/min Est GFR (Non-Af Amer) 13.1 ml/min BUN/Creatinine Ratio 18.5 (10-20) Glucose 110 H (70-99(Fasting)) mg/dl Calcium 9.5 (8.6-10.3) mg/dl Total Bilirubin 0.7 (0.2-1.0) mg/dl AST 18 (13-39) U/L ALT 12 (7-52) U/L Alkaline Phosphatase 90 (34-104) U/L Troponin I High Sens 13.6 (0-14) pg/ml Total Protein 7.2 (6.0-8.3) gm/dl Albumin 4.1 (3.4-5.0) gm/dl Globulin 3.1 (2.5-4.0) gm/dl Albumin/Globulin Ratio 1.3 (0.9-2) Lipase 68 (11-82) U/L 12/27/22 Range/Units 15:57 WBC (4.8-10.8) K/ul RBC (4.20-5.40) M/uL Hgb (12.0-16.0) g/dl Hct (37.0-47.0) % MCV (80.0-100.0) fL MCH (25.0-34.0) pg MCHC (32.0-36.0) g/dL RDW Std Deviation (36.4-46.3) fL RDW Coeff of Taylor (11.5-14.5) % Plt Count (130-400) K/uL MPV (9.4-12.4) fL Immature Gran % (Auto) % Neut % (Auto) % Lymph % (Auto) % Hamlin % (Auto) % Eos % (Auto) % Baso % (Auto) % Neut # (Auto) (1.40-6.50) K/uL Lymph # (Auto) (1.2-3.4) K/uL Hamlin # (Auto) (0.11-0.59) K/uL Eos # (Auto) (0-0.50) K/uL Baso # (Auto) (0-0.2) K/uL Immature Gran # (Auto) (0.01-0.20) K/uL PT (9.0-12.0) Seconds INR (0.9-1.1) APTT (21.0-31.0) Seconds PTT Ratio D-Dimer (0-500) ug/L FEU Sodium (136-145) mmol/L Potassium (3.5-5.1) mmol/L Chloride (98-107) mmol/L Carbon Dioxide (21-32) mmol/L Anion Gap (3-11) BUN (6-23) mg/dl Creatinine (0.6-1.2) mg/dl Est Cr Clr Drug Dosing ml/min Est GFR ( Amer) ml/min Est GFR (Non-Af Amer) ml/min BUN/Creatinine Ratio (10-20) Glucose (70-99(Fasting)) mg/dl Calcium (8.6-10.3) mg/dl Total Bilirubin (0.2-1.0) mg/dl AST (13-39) U/L ALT (7-52) U/L Alkaline Phosphatase (34-104) U/L Troponin I High Sens 14.0 (0-14) pg/ml Total Protein (6.0-8.3) gm/dl Albumin (3.4-5.0) gm/dl Globulin (2.5-4.0) gm/dl Albumin/Globulin Ratio (0.9-2) Lipase (11-82) U/L Administered Medications Discontinued Medications Aspirin (Aspirin Chew 324 Mg) 324 mg PO NOW STA Stop: 12/27/22 13:49 Last Admin: 12/27/22 14:37 Dose: 324 mg Documented By: SWD Sodium Chloride (Nss) 500 mls @ 999 mls/hr IV .Q31M STA Stop: 12/27/22 15:12 Last Admin: 12/27/22 14:50 Dose: 999 mls/hr Documented By: ALESSANDRO Sodium Chloride (Nss 1000ml) 500 mls @ 999 mls/hr IV .Q31M ONE Stop: 12/27/22 16:06 Last Admin: 12/27/22 17:20 Dose: 999 mls/hr Documented By: ALESSANDRO Morphine Sulfate (Morphine Sulfate 4 Mg/Ml 1 Ml Carp\\Vial) 4 mg IV NOW STA Stop: 12/27/22 14:04 Last Admin: 12/27/22 14:37 Dose: 4 mg Documented By: ALESSANDRO Imaging Data Attestation: I personally reviewed and interpreted this imaging study as follows: My Impression: 1 view chest x-ray was obtained in the emergency department. My interpretation is no free air or definite infiltrate. Final report below Radiologist's Impression: Chest X-Ray 12/27/22 13:48 XR chest 1V portable CLINICAL HISTORY: Chest pain, nonspecific TECHNIQUE: Single frontal radiograph of the chest was obtained. Comparison: Comparison is made to chest radiograph 04/23/2022 FINDINGS: Median sternotomy wires are unchanged. Cardiomegaly is noted. The aortic arch is calcified. The lungs are clear. No evidence of pleural effusion or pneumothorax. IMPRESSION: No acute chest disease. ACT 112: Negative or not required by law. Electronically signed by: Darius Garland M.D. 12/27/2022 2:13 PM Venous Doppler Study 12/27/22 16:09 US venous doppler LE BI CLINICAL HISTORY: elevated D-dimer TECHNIQUE: Bilateral lower extremity real-time compression venous ultrasound with Color Doppler imaging. Utilizing real-time ultrasonic imaging multiple real time high-resolution ultrasonic images with compression and noncompression maneuvers of the deep venous system in addition to color doppler imaging were performed from the common femoral vein through the proximal calf veins. COMPARISON: None available at the time of this dictation. FINDINGS/IMPRESSION: Currently there is normal compressibility of the deep venous system from the common femoral vein through the proximal calf veins. No superficial venous thrombosis is identified. ACT 112: Negative or not required by law. Electronically signed by: Darius Garland M.D. 12/27/2022 5:44 PM Discharge Plan Visit Data Chief Complaint: Shortness of Breath/Dyspnea Stated Complaint: SOB,NECK PAIN,LIP NUMBS,HEADACHE,CHEST TIGHTNESS ED Provider: Reynaldo Key ED Midlevel Provider: Gianni Grover Discharge Problem: Chest pain, ROBERT (acute kidney injury), Blood D-dimer assay positive Patient Disposition: Being Evaluated by Hospitalist Forms Stand Alone Forms: [facility] Prescriptions Prescriptions: No Action furosemide 40 mg tablet 40 mg PO BID Qty: 180 3RF (DME) pen needle, diabetic [BD Ultra-Fine Short Pen Needle] 31 gauge x 5/16" needle See Rx Instructions .Route Qty: 500 3RF Rx Instructions: Use with insulin pen 5 times a day Dx:E11.9 nitroglycerin 0.4 mg tablet, sublingual 0.4 mg SL Q5M PRN (Reason: Chest Pain) Qty: 25 3RF hydroxyzine HCl 25 mg tablet 25 mg PO QID PRN (Reason: itching) Qty: 90 1RF (DME) OneTouch Verio test strips Strip See Rx Instructions .Route Qty: 100 4RF Rx Instructions: Verio Test Strips, Test QID or as directed pramipexole 0.5 mg tablet 0.5 mg PO HS Qty: 90 3RF atorvastatin 10 mg tablet 10 mg PO QPM Qty: 90 3RF (DME) blood-glucose meter [OneTouch Verio Meter] Misc See Rx Instructions .Route Qty: 1 0RF Rx Instructions: Test QID or as directed (DME) Dexcom G6 Traffic Counter Misc See Rx Instructions .Route Qty: 1 0RF Rx Instructions: As directed (DME) Dexcom G6 Transmitter Device See Rx Instructions .Route Qty: 1 0RF Rx Instructions: As directed isosorbide mononitrate 30 mg tablet extended release 24 hr 30 mg PO DAILY Qty: 90 1RF clopidogrel 75 mg tablet 75 mg PO QAM Qty: 32 6RF potassium chloride 20 mEq tablet extended release 20 meq PO DAILY Qty: 30 2RF insulin glargine [Lantus Solostar U-100 Insulin] 100 unit/mL (3 mL) insulin pen 35 unit subcut BID 90 Days Qty: 63 3RF (DME) Dexcom G6 Sensor Device See Rx Instructions .Route Qty: 3 3RF Rx Instructions: As directed semaglutide 1 mg/dose (4 mg/3 mL) pen injector 1 mg subcut WK Qty: 3 1RF Rx Instructions: THURSDAYS sertraline 100 mg tablet 150 mg PO DAILY 90 Days Qty: 135 3RF lisinopril 40 mg tablet 40 mg PO QAM Qty: 90 3RF cyanocobalamin (vitamin B-12) 5,000 mcg tablet,disintegrating 5,000 mcg PO QAM ferrous gluconate 324 mg (38 mg iron) tablet 324 mg PO BID albuterol sulfate 90 mcg/actuation HFA aerosol inhaler 2 puff inhalation Q6H PRN (Reason: Shortness Of Breath Or Wheezing) Qty: 18 3RF (DME) Diabetic Shoes Misc See Rx Instructions .Route Qty: 1 0RF Rx Instructions: As directed. E11.9, Z79.4 (DME) flash glucose sensor Kit See Rx Instructions .Route Qty: 1 0RF Rx Instructions: As directed E11.9, Z79.4 (DME) flash glucose scanning reader Misc See Rx Instructions .Route Qty: 1 0RF Rx Instructions: As directed E11.9, Z79.4 magnesium oxide 400 mg Capsule 400 mg PO BID Probiotic 3 billion cell Capsule 1 cap PO HS multivitamin [Multiple Vitamins] Tablet 1 tab PO QAM ascorbic acid (vitamin C) 1,000 mg Tablet Extended Release 1,000 mg PO QAM zinc gluconate 50 mg Tablet 50 mg PO DAILY insulin lispro [Humalog KwikPen Insulin] 100 unit/mL Insulin Pen 1 sliding scale dose SUBCUT TID triamcinolone acetonide 0.1 % cream 1 applic topical BID PRN (Reason: Skin Irritation) Rx Instructions: Use for no longer than 2 wks. aspirin 81 mg Tablet,Delayed Release (Dr/Ec) 81 mg PO QAM metoprolol succinate 25 mg tablet extended release 24 hr 50 mg PO QAM Referrals Referrals: Gretchen Sanders MD [Primary Care Provider] -
[2022-12-27 14:50] LABS: Partial Thromboplastin Ratio 1.1; Partial Thromboplastin Time 29.8 Seconds (21.0-31.0); Prothrombin Time 11.1 Seconds (9.0-12.0)
[2022-12-27 15:58] LABS: D Dimer 1560 ug/L FEU (0-500)
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
--- NOTE | 2022-12-27 17:45 | Ultrasound Report ---
US venous doppler LE BI CLINICAL HISTORY: elevated D-dimer TECHNIQUE: Bilateral lower extremity real-time compression venous ultrasound with Color Doppler imagi ng. Utilizing real-time ultrasonic imaging multiple real time high-resolution ultrasonic images with compression and noncompression maneuvers of the deep venous system in addition to color doppler imagi ng were performed from the common femoral vein through the proximal calf veins. COMPARISON: None available at the time of this dictation. FINDINGS/IMPRESSION: Currently there is normal compressibility of the deep venous system from the common femoral vein thro ugh the proximal calf veins. No superficial venous thrombosis is identified. ACT 112: Negative or not required by law. Electronically signed by: Darius Garland M.D. 12/27/2022 5:44 PM
--- NOTE | 2022-12-27 17:53 | Electrocardiogram Report ---
Test Reason : Blood Pressure : / mmHG Vent. Rate : 078 BPM Atrial Rate : 078 BPM P-R Int : 234 ms QRS Dur : 102 ms QT Int : 386 ms P-R-T Axes : 023 -44 048 degrees QTc Int : 440 ms Sinus rhythm with 1st degree A-V block with Premature atrial complexes with Aberrant conduction vs P VCs Left axis deviation Moderate voltage criteria for LVH, may be normal variant Abnormal ECG When compared with ECG of 23-APR-2022 17:02, Aberrant conduction is now Present Nonspecific T wave abnormality no longer evident in Inferior leads T wave inversion less evident in Anterolateral leads Confirmed by David Epperson ([id number]) on 12/27/2022 5:53:35 PM Referred By: Confirmed By:Dilshad Epperson
[2022-12-27 18:36] LABS: Calcium 8.9 mg/dl (8.6-10.3); Creatinine Clr Calc Pharmacy 17.8 ml/min; Est GFR (African American) 16.4 ml/min; Est GFR (Non-African American) 14.1 ml/min
[2022-12-27] MEDS ORDERED: ACETAMINOPHEN 325 MG TAB PO PRN (18:42)
[2022-12-27] MEDS ORDERED: NITROGLYCERIN SL 0.4 MG/TAB TAB SL PRN (18:42)
[2022-12-27] MEDS ORDERED: ALBUTEROL HFA 8 GM INHALER INH PRN (18:42)
[2022-12-27] MEDS ORDERED: GLUCOSE 40% GEL 15 GM TUBE PO PRN (18:42)
[2022-12-27] MEDS ORDERED: DEXTROSE 50% 50 ML SYRINGE IV PRN (18:42)
[2022-12-27] MEDS ORDERED: CARBOHYDRATES FOR HYPOGLYCEMIA PO PRN (18:42)
[2022-12-27] MEDS ORDERED: GLUCAGON FOR INJ 1 MG VIAL SQ PRN (18:42)
[2022-12-27] MEDS ORDERED: GLUCOSE 10 TAB/TUBE PO PRN (18:42)
[2022-12-27] MEDS ORDERED: Heparin IV Adult Wt-Based Low-Dose WITH Bolus Protocol IV STA (18:42)
[2022-12-27] MEDS ORDERED: HEPARIN SODIUM/DEXTROSE 25,000 UNITS/500 ML BAG IV SCH (19:00)
[2022-12-27] MEDS ORDERED: HEPARIN SOD (PORCINE) 1000 UNIT/ML IV ONE (19:45)
[2022-12-27] MEDS ORDERED: ATORVASTATIN 10 MG TAB PO SCH (21:00)
[2022-12-27] MEDS ORDERED: PRAMIPEXOLE DIHYDROCHLO 0.5 MG TAB PO SCH (21:00)
[2022-12-27] MEDS: FERROUS GLUCONATE 324 MG TAB PO SCH (21:18)
[2022-12-27] MEDS: INSULIN ASPART PER UNIT CHARGE SC SCH (21:24)
[2022-12-27] MEDS: LANTUS PER UNIT CHARGE SQ SCH (21:24)
[2022-12-28 02:36] LABS: Basophils # (auto) 0.09 K/uL (0-0.2); Basophils % (auto) 0.9 %; Eosinophils # (auto) 0.61 K/uL (0-0.50); Eosinophils % (auto) 6.1 %; Hemoglobin 12.4 g/dl (12.0-16.0); Immature Granulocytes # (auto) 0.02 K/uL (0.01-0.20); Immature Granulocytes % (auto) 0.2 %; Lymphocytes % (auto) 42.9 %; Mean Corpuscular Hemoglobin 29.7 pg (25.0-34.0); Mean Corpuscular Hgb Conc 32.6 g/dL (32.0-36.0); Mean Corpuscular Volume 90.9 fL (80.0-100.0); Monocytes # (auto) 1.26 K/uL (0.11-0.59); Monocytes % (auto) 12.6 %; Neutrophils # (auto) 3.74 K/uL (1.40-6.50); Neutrophils % (auto) 37.3 %; Platelet Count 225 K/uL (130-400); RDW Coefficient of Variation 14.3 % (11.5-14.5); RDW Standard Deviation 47.8 fL (36.4-46.3); Red Blood Count 4.18 M/uL (4.20-5.40); White Blood Count 10.02 K/ul (4.8-10.8)
[2022-12-28 02:47] LABS: Calcium 8.8 mg/dl (8.6-10.3); Creatinine Clr Calc Pharmacy 17.3 ml/min; Est GFR (African American) 16.1 ml/min; Est GFR (Non-African American) 13.9 ml/min; Potassium 5.2 mmol/L (3.5-5.1)
[2022-12-28 03:11] LABS: Partial Thromboplastin Ratio 2.1
[2022-12-28 03:21] LABS: Partial Thromboplastin Time 59.2 Seconds (21.0-31.0)
[2022-12-28] MEDS ORDERED: POTASSIUM CHLORIDE CRTAB 20 MEQ TABCR PO SCH (09:00)
[2022-12-28] MEDS ORDERED: CLOPIDOGREL BISULFATE 75 MG TAB PO SCH (09:00)
[2022-12-28] MEDS ORDERED: SERTRALINE HCL 100 MG TABLET PO SCH (09:00)
[2022-12-28] MEDS ORDERED: ISOSORBIDE MONO EXTENDED REL 30 MG TABCR PO SCH (09:00)
[2022-12-28] MEDS ORDERED: CYANOCOBALAMIN (B-12) 2,500 MCG TABLET PO SCH (09:00)
[2022-12-28] MEDS ORDERED: METOPROLOL SUCC 50MG EXT REL TAB PO SCH (09:00)
[2022-12-28] MEDS: FERROUS GLUCONATE 324 MG TAB PO SCH (09:20)
[2022-12-28] MEDS: LANTUS PER UNIT CHARGE SQ SCH (09:26)
[2022-12-28] MEDS: INSULIN ASPART PER UNIT CHARGE SC SCH ×2 (09:27→13:32)
--- NOTE | 2022-12-28 10:03 | XCELERA ---
[id number]
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
--- NOTE | 2022-12-28 13:13 | Hospitalist Progress Note ---
Date of Service December 28, 2022 Assessment & Plan (1) Chest pain: Plan: Currently asymptomatic. Proper use of sublingual nitroglycerin explained to the patient. Case discussed with cardiology. No apparent DE at this time. Heparin drip has been discontinued and aspirin restarted. She will follow-up with cardiology as an outpatient to discuss possible initiation of Ranexa. (2) ROBERT (acute kidney injury): Plan: Acute on chronic kidney disease, stage IV. Lisinopril has been discontinued due to advanced kidney disease and hyperkalemia (3) Chronic kidney disease, stage 4 (severe): Plan: Lisinopril discontinued due to advanced kidney disease and hyperkalemia (4) Diabetes mellitus type 2, insulin dependent: Plan: ADA diet. Basal insulin therapy. Sliding scale coverage as needed (5) GERD (gastroesophageal reflux disease): Plan: Stable. Continue PPI therapy (6) Coronary artery disease: Plan: Known coronary artery disease with history of coronary artery bypass grafting and PCI. Continue medical management (7) Stress-induced cardiomyopathy: Plan: History of [place] cardiomyopathy. Continue current medical manage (8) HTN (hypertension): Plan: Stable. Continue current medical management (9) Dyslipidemia: Plan: Stable. Continue statin therapy Plan Hopefully home today, December 28. We will discuss potential discharge with cardiology Admission and Anticipated Discharge Date Admission Date: December 27, 2022 Subjective Alert and oriented. She denies chest pain. Discussed with cardiology, Dr. Reynaldo Roe. Heparin drip has been discontinued and she has been restarted on her aspirin. She will follow-up with cardiology as an outpatient for probable initiation of Ranexa. Troponin is negative. Lisinopril has been discontinued due to chronic kidney disease and hyperkalemia. Venous Doppler of both legs negative for DVT. Review of Systems Review of Systems: Constitutional-no fever or chills ENT-no blurred vision, no double vision, no epistaxis, no sore throat Respiratory-no cough, no wheezing, no shortness of breath Cardiac-no palpitations, no syncope GI-no nausea, vomiting, diarrhea, melena, hematochezia -no urinary retention, no urinary incontinence, no dysuria, no hematuria Musculoskeletal-no joint pain, no muscle tenderness Skin-no bruising, no rashes, no pruritus Neuro-no isolated weakness, no paresthesia, no weakness Psych-no depression, no anxiety Physical Exam Physical Exam: General-alert and oriented x3, no fevers, no chills HEENT-head atraumatic and normocephalic, pupils equal and reactive to light, extraocular muscles intact Neck-no lymphadenopathy or thyromegaly, trachea midline Chest-clear to auscultation percussion. No rales wheezing or rhonchi Cardiac-regular rate and rhythm, normal S1 and S2 Abdomen-normal bowel sounds, nontender, no hepatosplenomegaly Extremities-no cyanosis, clubbing, or edema Neuro-cranial nerves II through XII intact, motor and sensory function within normal limits, strength symmetrical , no focal deficits Psych-normal affect, normal mood Results & Data Results & Data Vital Signs (Past 12 Hours) Vital Signs Temp Pulse Pulse Resp BP Pulse Ox O2 Del Method 12/28/22 11:34 36.5 C 69 19 103/55 L 96 Room Air 12/28/22 07:39 36.4 C L 71 19 124/72 96 Room Air 12/28/22 07:31 66 12/28/22 03:09 36.5 C 66 18 97/61 L 96 Room Air Laboratory Results 12/28/22 02:15 12/28/22 02:15 PG Care Time/CCT Total # of Minutes Spent Total Time Spent with Patient: Total time spent is greater than 50% in coordination of care (as documented) at patient's floor/unit and/or counseling patient: Coding Level of Care Code 91291 SUB INP/OBS CARE 3/50MIN Diagnoses Chest pain R07.9 Chest pain type: unspecified ROBERT (acute kidney injury) N17.9 Chronic kidney disease, stage 4 (severe) N18.4 Diabetes mellitus type 2, insulin dependent E11.9; Z79.4 GERD (gastroesophageal reflux disease) K21.9 Esophagitis presence: without esophagitis Coronary artery disease I25.10 Stress-induced cardiomyopathy I51.81 HTN (hypertension) I10 Hypertension type: essential hypertension Dyslipidemia E78.5 (1) Chest pain Chest pain type: unspecified Qualified Code(s): R07.9 - Chest pain, unspecified (5) GERD (gastroesophageal reflux disease) Esophagitis presence: without esophagitis Qualified Code(s): K21.9 - Gastro- esophageal reflux disease without esophagitis (8) HTN (hypertension) Hypertension type: essential hypertension Qualified Code(s): I10 - Essential (primary) hypertension
[2022-12-28] MEDS ORDERED: ASPIRIN 81 MG ECTAB PO SCH (13:15)
--- NOTE | 2022-12-28 13:58 | Discharge Summary ---
Date of Service December 28, 2022 Admission HPI Per Admitting Provider Kathleen is a 72-year-old female with a past medical history of type II DMID, CKD 4, hypertension, dyslipidemia, heart failure with reduced ejection fraction and history of both ischemic and stress-induced cardiomyopathy with EF 40% 2020 interval improvement to 50-55% in 2021 who presents the emergency department with chest pain. Walking in lows today and had a pressure across her central chest. Has also been lightheaded/dizzy for the last week which is unusual/new. She has had additional R sided neck discomfort and has had a headache today. Lips felt numb/tingly With her prior heart attacks had left sided chest pain. That felt very different. With Had some stents here, bipass was done in [facility], and [place] stents [place]. Has had a few episodes this week all with exertion Normally only uses nitro rarely, but used 2-3 a few weeks ago. DIdnt try nitro this week. +SoB. No diaphoresis. "feels wavy and lightheaded" "little wee bit >80% better" Medical History: Reviewed Medications: Reviewed. No recent medication changes. Surgical History: Reviewed Family history: Reviewed Allergies: Reviewed. Rash to isosorbide/nickel/PCN/prasugrel. Social History: No current or former tobacco. No etoh Code Status: Full Principal Diagnosis Angina pectoris, acute on chronic kidney disease stage IV Discharge Exam General-alert and oriented x3, no fevers, no chills HEENT-head atraumatic and normocephalic, pupils equal and reactive to light, extraocular muscles intact Neck-no lymphadenopathy or thyromegaly, trachea midline Chest-clear to auscultation percussion. No rales wheezing or rhonchi Cardiac-regular rate and rhythm, normal S1 and S2 Abdomen-normal bowel sounds, nontender, no hepatosplenomegaly Extremities-no cyanosis, clubbing, or edema Neuro-cranial nerves II through XII intact, motor and sensory function within normal limits, strength symmetrical , no focal deficits Psych-normal affect, normal mood Discharge Data Allergies Allergy/AdvReac Type Severity Reaction Status Date / Time isosorbide Allergy Intermediate Rash Verified 12/27/22 16:12 nickel Allergy Intermediate Rash Verified 12/27/22 16:12 Penicillins Allergy Intermediate Numbness Verified 12/27/22 16:12 of lips prasugrel Allergy Intermediate RASH,ITCHY Verified 12/27/22 16:12 Consultations 12/27/22 17:34 ED Decision to Admit Stat 12/27/22 18:42 Consult Cardiology Routine Ordered Studies 12/27/22 16:09 US venous duplex leg [US venous doppler LE BI] Stat Hospital Course (1) Chest pain: Currently asymptomatic. Proper use of sublingual nitroglycerin explained to the patient. Case discussed with cardiology. No apparent [place] at this time. Heparin drip has been discontinued and aspirin restarted. She will follow-up with cardiology as an outpatient to discuss possible initiation of Ranexa. (2) ROBERT (acute kidney injury): Acute on chronic kidney disease, stage IV. Lisinopril has been discontinued due to advanced kidney disease and hyperkalemia (3) Chronic kidney disease, stage 4 (severe): Lisinopril discontinued due to advanced kidney disease and hyperkalemia (4) Diabetes mellitus type 2, insulin dependent: ADA diet. Basal insulin therapy. Sliding scale coverage as needed (5) GERD (gastroesophageal reflux disease): Stable. Continue PPI therapy (6) Coronary artery disease: Known coronary artery disease with history of coronary artery bypass grafting and PCI. Continue medical management (7) Stress-induced cardiomyopathy: History of Takotsubo cardiomyopathy. Continue current medical manage (8) HTN (hypertension): Stable. Continue current medical management (9) Dyslipidemia: Stable. Continue statin therapy Plan Home today, December 28. Total Time Total Time Spent Total Time Spent (In Minutes): 45 minutes Discharge Plan Discharge Items Patient Disposition: Home - Self-Care Reason For Visit: CHEST PAIN, DIMER, ROBERT ON CKD Discharge Diagnosis: Angina pectoris, acute on chronic kidney disease stage IV, hyperkalemia Activity: Resume your previous activity Non-emergency contact: Primary Care Provider Call non-emergency contact if: you have any medication questions and your symptoms worsen Follow-up/Referrals: Gretchen Sanders MD [Primary Care Provider] - Diet: Carb Consistent or DM2 and Heart Healthy Addtl Attending Provider Instructions: Lisinopril has been discontinued. Use nitroglycerin under the tongue as directed for any recurrent chest discomfort Pending Studies at Discharge: No Stand-Alone Forms: My [facility], Smoking Cessation Medications and DC Order Prescriptions: New aspirin 81 mg Tablet,Delayed Release (Dr/Ec) 81 mg PO QAM Qty: 0 0RF Continued furosemide 40 mg tablet 40 mg PO BID Qty: 180 3RF (DME) pen needle, diabetic [BD Ultra-Fine Short Pen Needle] 31 gauge x 5/16" needle See Rx Instructions .Route Qty: 500 3RF Rx Instructions: Use with insulin pen 5 times a day Dx:E11.9 nitroglycerin 0.4 mg tablet, sublingual 0.4 mg SL Q5M PRN (Reason: Chest Pain) Qty: 25 3RF hydroxyzine HCl 25 mg tablet 25 mg PO QID PRN (Reason: itching) Qty: 90 1RF (DME) OneTouch Verio test strips Strip See Rx Instructions .Route Qty: 100 4RF Rx Instructions: Verio Test Strips, Test QID or as directed pramipexole 0.5 mg tablet 0.5 mg PO HS Qty: 90 3RF atorvastatin 10 mg tablet 10 mg PO QPM Qty: 90 3RF (DME) blood-glucose meter [OneTouch Verio Meter] Misc See Rx Instructions .Route Qty: 1 0RF Rx Instructions: Test QID or as directed (DME) Dexcom G6 Account Manager Relief Misc See Rx Instructions .Route Qty: 1 0RF Rx Instructions: As directed (DME) Dexcom G6 Transmitter Device See Rx Instructions .Route Qty: 1 0RF Rx Instructions: As directed isosorbide mononitrate 30 mg tablet extended release 24 hr 30 mg PO DAILY Qty: 90 1RF clopidogrel 75 mg tablet 75 mg PO QAM Qty: 32 6RF potassium chloride 20 mEq tablet extended release 20 meq PO DAILY Qty: 30 2RF insulin glargine [Lantus Solostar U-100 Insulin] 100 unit/mL (3 mL) insulin pen 35 unit subcut BID 90 Days Qty: 63 3RF (DME) Dexcom G6 Sensor Device See Rx Instructions .Route Qty: 3 3RF Rx Instructions: As directed semaglutide 1 mg/dose (4 mg/3 mL) pen injector 1 mg subcut WK Qty: 3 1RF Rx Instructions: THURSDAYS sertraline 100 mg tablet 150 mg PO DAILY 90 Days Qty: 135 3RF cyanocobalamin (vitamin B-12) 5,000 mcg tablet,disintegrating 5,000 mcg PO QAM ferrous gluconate 324 mg (38 mg iron) tablet 324 mg PO BID albuterol sulfate 90 mcg/actuation HFA aerosol inhaler 2 puff inhalation Q6H PRN (Reason: Shortness Of Breath Or Wheezing) Qty: 18 3RF (DME) Diabetic Shoes Misc See Rx Instructions .Route Qty: 1 0RF Rx Instructions: As directed. E11.9, Z79.4 (DME) flash glucose sensor Kit See Rx Instructions .Route Qty: 1 0RF Rx Instructions: As directed E11.9, Z79.4 (DME) flash glucose scanning reader Misc See Rx Instructions .Route Qty: 1 0RF Rx Instructions: As directed E11.9, Z79.4 magnesium oxide 400 mg Capsule 400 mg PO BID Probiotic 3 billion cell Capsule 1 cap PO HS multivitamin [Multiple Vitamins] Tablet 1 tab PO QAM ascorbic acid (vitamin C) 1,000 mg Tablet Extended Release 1,000 mg PO QAM zinc gluconate 50 mg Tablet 50 mg PO DAILY insulin lispro [Humalog KwikPen Insulin] 100 unit/mL Insulin Pen 1 sliding scale dose SUBCUT TID triamcinolone acetonide 0.1 % cream 1 applic topical BID PRN (Reason: Skin Irritation) Rx Instructions: Use for no longer than 2 wks. aspirin 81 mg Tablet,Delayed Release (Dr/Ec) 81 mg PO QAM metoprolol succinate 25 mg tablet extended release 24 hr 50 mg PO QAM Discontinued lisinopril 40 mg tablet 40 mg PO QAM Qty: 90 3RF Discharge Orders: Discharge Order (Routine); Ordered 12/28/22 Ordered By: Jeff Shafer Admission Data Admit Date/Time: 12/27/22 18:24 Attending Provider: Jeff Shafer Admit Provider: Gavino Kaye Primary Care Provider: Gretchen Sanders Other Providers: Gavino Kaye ; Reynaldo Roe Coding Level of Care Code 88860 INP/OBS DISCH >30 MIN Diagnoses Chest pain R07.9 Chest pain type: unspecified ROBERT (acute kidney injury) N17.9 Chronic kidney disease, stage 4 (severe) N18.4 Diabetes mellitus type 2, insulin dependent E11.9; Z79.4 GERD (gastroesophageal reflux disease) K21.9 Esophagitis presence: without esophagitis Coronary artery disease I25.10 Stress-induced cardiomyopathy I51.81 HTN (hypertension) I10 Hypertension type: essential hypertension Dyslipidemia E78.5
== END 2022-12-28 16:06 | disposition home or self-care (01) ==
LOC: ED 13:13 → INTOOBSV 18:24 → SUATTDRO 18:24 → EDINP 18:24 → 2N 18:34

== ENCOUNTER 2023-04-26 14:55 | Inpatient (IN) ==
--- NOTE | 2023-04-26 15:48 | XRay Report ---
XR chest 1V not portable HISTORY: cough COMPARISON: Chest 12/27/2022. FINDINGS: No pneumothorax. No pleural effusions. The heart remains enlarged. There are poststernotomy changes. Mild interstitial thickening. This is likely chronic. There is a 7.9 cm masslike density ov erlying the left mid to lower lung zone. This is new compared the prior study and therefore may be ex ternal to the patient. IMPRESSION: A 7.9 cm lobular density overlying the left mid to lower lung zone which is new compared the prior st udy. Therefore, this may be external to the patient. Follow-up PA and lateral views of the chest are recommended to exclude the possibility of a pulmonary lesion. ACT 112: Negative or not required by law. Electronically signed by: Nick Garcia M.D. 04/26/2023 3:46 PM
[2023-04-26 16:02] LABS: Alanine Aminotransferase 10 U/L (7-52); Albumin Globulin Ratio 1.1 (0.9-2); Albumin Level 3.9 gm/dl (3.4-5.0); Alkaline Phosphatase 104 U/L (34-104); Anion Gap 11 (3-11); Aspartate Aminotransferase 18 U/L (13-39); BUN Creatinine Ratio 13.7 (10-20); Bilirubin,Total 2.2 mg/dl (0.2-1.0); Blood Urea Nitrogen 34 mg/dl (6-23); Calcium 9.2 mg/dl (8.6-10.3); Carbon Dioxide 24 mmol/L (21-32); Chloride 99 mmol/L (98-107); Est GFR (African American) 21.2 ml/min; Est GFR (Non-African American) 18.3 ml/min; Globulin 3.6 gm/dl (2.5-4.0); Glucose 206 mg/dl (70-99(Fasting)); Potassium 4.1 mmol/L (3.5-5.1); Sodium 134 mmol/L (136-145); Total Protein 7.5 gm/dl (6.0-8.3)
[2023-04-26] MEDS ORDERED: SODIUM CHLORIDE 0.9% 500 ML IV ONE (16:12)
[2023-04-26] MEDS ORDERED: CEFEPIME 2,000 MG/20 ML VIAL IV STA (16:12)
[2023-04-26 16:14] LABS: Acanthocytes 2+; Basophils # (auto) 0.09 K/uL (0.00-0.20); Basophils % (auto) 0.2 %; Echinocytes 2+; Eosinophils # (auto) 0.09 K/uL (0.00-0.50); Eosinophils % (auto) 0.2 %; Hematocrit (blood only) 40.3 % (37.0-47.0); Hemoglobin 13.6 g/dl (12.0-16.0); Lymphocytes # (auto) 3.03 K/uL (1.20-3.40); Lymphocytes % (auto) 7.7 %; Mean Corpuscular Hemoglobin 30.5 pg (25.0-34.0); Mean Corpuscular Hgb Conc 33.7 g/dL (32.0-36.0); Mean Corpuscular Volume 90.4 fL (80.0-100.0); Mean Platelet Volume 11.6 fL (9.4-12.4); Monocytes # (auto) 3.94 K/uL (0.11-0.59); Monocytes % (auto) 10.1 %; Neutrophils # (auto) 31.15 K/uL (1.40-6.50); Neutrophils % (auto) 79.8 %; Platelet Count 268 K/uL (130-400); RDW Coefficient of Variation 13.8 % (11.5-14.5); RDW Standard Deviation 45.8 fL (36.4-46.3); Red Blood Count 4.46 M/uL (4.20-5.40)
--- NOTE | 2023-04-26 16:21 | Emergency Department Note ---
Impression & Plan Pneumonia, Chest pain ED Provider Note NAME: ERMIAS MAZARIEGOS AGE: 73 SEX: F : 1950 ARRIVES VIA: Walk-In INFORMANT: Patient, the patient's family members ED PROVIDER(S): Reynaldo Key DO CHIEF COMPLAINT: Cough HPI: The patient is a 73-year-old female who presented to the emergency department for an evaluation of cough like symptoms. The patient had cough the course of the last 3 days. She has had a productive cough. She also had a fever at home. She complains of left-sided flank pain as well as left-sided chest pain. She denies having any hemoptysis. She denies having any leg swelling. She does have a history of heart disease diabetes as well as chronic kidney disease. ROS: See above HPI for pertinent positives & negatives. A total of 10 systems reviewed and were otherwise negative. PAST MEDICAL HISTORY: See Below PAST SURGICAL HISTORY: See Below FAMILY HISTORY: See Below SOCIAL HISTORY: See Below HOME MEDICATIONS: See Below ALLERGIES: See Below VITALS: See Below PHYSICAL EXAMINATION: GENERAL: Patient is awake alert in no acute distress patient is resting comfortably and showing no signs of anxiety EYES: The conjunctivae are clear. The pupils are round and reactive. EARS, NOSE, MOUTH AND THROAT: The nose is without any evidence of any deformity. NECK: The neck is nontender and supple. RESPIRATORY: Significantly diminished breath sounds are noted in the left lung field. There is no tachypnea or conversational dyspnea. CARDIOVASCULAR: Regular rate and rhythm was noted to auscultation. Systolic murmur suggested. GASTROINTESTINAL: The abdomen is soft. Abdomen is nontender. MUSCULOSKELETAL/EXTREMITIES: There is no evidence of gross deformity full range of motion is noted in the hips and shoulders. SKIN: There is no obvious evidence of any rash. There are no petechiae, pallor or cyanosis noted. NEUROLOGIC: Patient is awake alert and oriented x3 MEDICAL DECISION MAKING: The patient is a 73-year-old female who presented to the emergency department for an evaluation of difficulty breathing and left-sided chest pain. She also had a productive cough. The patient appeared to have pneumonia on chest x-ray. She was treated with IV antibiotics and IV fluids in the emergency department. She was reevaluated multiple times. The patient does have a history of chronic renal insufficiency. She did appear to have a creatinine was elevated compared to her baseline. I discussed the patient's laboratory and radiographic studies with her. She was feeling much better on supplemental oxygen. I discussed her condition with the on-call [facility] hospitalist. They have agreed to evaluate the patient in the emergency department for further management and disposition. Triage Nursing notes reviewed. Prior medical records reviewed Vital Signs: reviewed and remarkable for elevated blood pressure. Differential diagnosis: Reactive airway disease, pneumonia, pneumothorax, COPD, CHF, infections, cardiac ischemia, pulmonary embolism, musculoskeletal, gastrointestinal, as well as other pathologies. ER treatment provided: See below Diagnostics interpreted by me: ECG: EKG was obtained in the emergency department. My interpretation is sinus rhythm at 100 bpm. First-degree AV block is noted with signs of LVH. There is no acute ST segment abnormalities. There is no PVCs. Poor R wave progression was noted. This was compared to a tracing from December 27, 2022. No changes were noted. Cardiac Monitoring: An order was placed for continuous cardiac monitoring. The monitor shows a rate of 101 bpm with sinus tachycardia. Laboratory studies: As stated above and show below. Imaging studies: See below. Radiographic imaging was reviewed by myself Consultation(s): I discussed this case with Dr. Bauer who is on-call for the [facility] hospitalist group. Past Med/Surg History Medical History Chronic kidney disease, stage 4 (severe) HTN (hypertension) Vitamin D deficiency History of angina pectoris RESOLVED > HAS BLOCKAGE AND PLANNED HEART CATH WITH STENT 03/22/19 Diabetes mellitus type 2, insulin dependent Diabetes Acute HFrEF (heart failure with reduced ejection fraction) follows with Dr. Cordero Stress-induced cardiomyopathy Restless legs syndrome Abnormal diffusion capacity determined by pulmonary function test Restrictive lung disease rare res inh use Myocardial infarction 01/2018 - HEART CATH AND ONE OF DOUBLE VESSEL IS BLOCKED AND NO STENT. FOLLOW WITH DR CORDERO Coronary artery disease Chronic combined systolic and diastolic CHF (congestive heart failure) Dyslipidemia CAD (coronary artery disease) NSTEMI (non-ST elevated myocardial infarction) 2017 GERD (gastroesophageal reflux disease) Surgical History Hx of right cataract extraction Hx of cataract extraction lt. History of tonsillectomy Hx of colonoscopy History of total abdominal hysterectomy and bilateral salpingo-oophorectomy Hx laparoscopic cholecystectomy Hx of splenectomy History of open reduction and internal fixation (ORIF) procedure RIGHT HIP H/O heart artery stent TOTAL OF 5 STENTS, LAST ONE WAS PLACED 03/2019 History of open heart surgery 2017 CABG X 2 [facility] Family History Unknown No problems noted. Father Colorectal cancer Myocardial infarction Mother Myocardial infarction Grandmother Diabetes Sister Skin cancer Myocardial infarction Denies family history of Ovarian cancer Prostate cancer Breast cancer Social History Smoking Status: Never smoker Second Hand Exposure: No; Do You Dip or Chew Tobacco: No; Hx Alcohol Use: No Hx Substance Use: No Preferred Language: Hungarian Communication Ability: Effective Visual Impairment: No Limitations Hearing Ability: Normal Valet Manager Required: No Beliefs That Will Affect Care: None marital status: Current Living Situation: Spouse current occupational status: retired Feels Safe at Home: Yes Childhood Exposure to Second-Hand Smoke: Yes Diet: regular Dental Care, Regularly: No Physical Activity Frequency: Does not Exercise Seatbelt Use: always Sunscreen Use: Yes Assistive Devices: None Allergies Allergies Allergy/AdvReac Type Severity Reaction Status Date / Time isosorbide Allergy Intermediate Rash Verified 04/21/23 14:49 nickel Allergy Intermediate Rash Verified 04/21/23 14:49 Penicillins Allergy Intermediate Numbness Verified 04/21/23 14:49 of lips prasugrel Allergy Intermediate RASH,ITCHY Verified 04/21/23 14:49 Home Meds Home Medications Medication Instructions Recorded Confirmed ascorbic acid (vitamin C) 1,000 mg 1,000 mg PO QAM 02/16/18 04/21/23 tablet,extended release lactobacillus combination no.4 3 1 cap PO HS 02/16/18 04/21/23 billion cell capsule (Probiotic) magnesium oxide 400 mg PO BID 02/16/18 04/21/23 multivitamin (Multiple Vitamins 1 tab PO QAM 02/16/18 04/21/23 tablet) cyanocobalamin (vitamin B-12) 5,000 mcg PO QAM 03/18/19 04/21/23 5,000 mcg disintegrating tablet ferrous gluconate 324 mg (38 mg 324 mg PO BID 03/18/19 04/21/23 iron) tablet metoprolol succinate 25 mg 50 mg PO QAM 02/11/22 04/21/23 tablet,extended release 24 hr insulin lispro 100 unit/mL 1 sliding scale dose subcut TID 12/27/22 04/21/23 subcutaneous pen (Humalog KwikPen (U-100) Insulin) triamcinolone acetonide 0.1 % 1 applic topical BID PRN Skin 12/27/22 04/21/23 topical cream Irritation zinc gluconate 50 mg tablet 50 mg PO DAILY 12/27/22 04/21/23 Previous Rx's Medication Instructions Recorded albuterol sulfate 90 mcg/actuation 2 puff inhalation Q6H PRN 07/24/20 aerosol inhaler Shortness Of Breath Or Wheezing #18 grams pen needle, diabetic 31 gauge x #500 ea 01/14/2210/01" (BD Ultra-Fine Short Pen Needle) hydroxyzine HCl 25 mg tablet 25 mg PO QID PRN itching #90 tabs 04/08/22 nitroglycerin 0.4 mg sublingual 0.4 mg sublingual Q5M PRN Chest 04/08/22 tablet Pain #25 tabs Diabetic Shoes #1 ea 04/19/22 blood sugar diagnostic (OneTouch #100 ea 04/29/22 Verio test strips) pramipexole 0.5 mg tablet 0.5 mg PO HS #90 tabs 06/14/22 atorvastatin 10 mg tablet 10 mg PO QPM #90 tabs 06/25/22 flash glucose scanning reader #1 ea 06/25/22 flash glucose sensor #1 ea 06/25/22 blood-glucose meter (OneTouch #1 ea 07/25/22 Verio Meter) blood-glucose meter,continuous #1 ea 08/02/22 (Dexcom G6 Electronic Health Records Specialist) clopidogrel 75 mg tablet 75 mg PO QAM #32 tabs 08/16/22 aspirin 81 mg tablet,delayed 81 mg PO QAM #0 tabs 12/28/22 release sertraline 100 mg tablet 150 mg (1.5 x 100 mg) PO DAILY 90 02/17/23 days #135 tabs dulaglutide 4.5 mg/0.5 mL 4.5 mg (0.5 mL) subcut WK #2 mL 03/10/23 subcutaneous pen injector ([facility]) blood-glucose sensor (Dexcom G6 #3 ea 03/17/23 Sensor device) insulin glargine 100 unit/mL (3 30 unit (0.3 mL) subcut BID 90 03/17/23 mL) subcutaneous pen (Lantus days #54 mL Solostar U-100 Insulin) blood-glucose transmitter (Dexcom #1 ea 03/18/23 G6 Transmitter device) furosemide 40 mg tablet 40 mg PO DAILY PRN weight gain #90 04/01/23 tabs isosorbide mononitrate 30 mg 30 mg PO DAILY #90 tabs 04/02/23 tablet,extended release 24 hr ranolazine 500 mg tablet,extended 500 mg PO BID #180 tabs 04/02/23 release,12 hr Results & Data (ED) Vital Signs Vital Signs - 24 hr 04/26/23 14:57 04/26/23 16:36 04/26/23 16:56 Temperature 37.4 C Temperature Source Temporal Artery Scan Pulse Rate 94 H Pulse Rate [Bilateral Apical] 105 H Respiratory Rate 22 18 Blood Pressure 146/76 H Blood Pressure [Left Arm] 159/75 H Blood Pressure Mean 99 Blood Pressure Mean [Left Arm] 103 Pulse Oximetry 93 98 99 Oxygen Delivery Method Room Air Nasal Cannula Nasal Cannula Oxygen Flow Rate 2 3 Sepsis Recent Fever Within 48 Hours No Sepsis New/Unexplained Change in Mental Status N/A Sepsis Action Taken by Nursing No Action Required 04/26/23 16:58 Temperature Temperature Source Pulse Rate 101 H Pulse Rate [Bilateral Apical] Respiratory Rate Blood Pressure Blood Pressure [Left Arm] Blood Pressure Mean Blood Pressure Mean [Left Arm] Pulse Oximetry Oxygen Delivery Method Oxygen Flow Rate Sepsis Recent Fever Within 48 Hours Sepsis New/Unexplained Change in Mental Status Sepsis Action Taken by Residential Medications Current Medication List: was personally reviewed by me Laboratory Data Attestation: I reviewed the patient's lab results. 04/26/23 15:30 04/26/23 16:52 Lab Results 04/26/23 04/26/23 04/26/23 Range/Units 15:30 16:30 16:52 WBC 39.10 H* (4.8-10.8) K/ul RBC 4.46 (4.20-5.40) M/uL Hgb 13.6 (12.0-16.0) g/dl Hct 40.3 (37.0-47.0) % MCV 90.4 (80.0-100.0) fL MCH 30.5 (25.0-34.0) pg MCHC 33.7 (32.0-36.0) g/dL RDW Std Deviation 45.8 (36.4-46.3) fL RDW Coeff of Taylor 13.8 (11.5-14.5) % Plt Count 268 (130-400) K/uL MPV 11.6 (9.4-12.4) fL Immature Gran % (Auto) 2.0 % Neut % (Auto) 79.8 % Lymph % (Auto) 7.7 % [place] % (Auto) 10.1 % Eos % (Auto) 0.2 % Baso % (Auto) 0.2 % Neut # (Auto) 31.15 H (1.40-6.50) K/uL Lymph # (Auto) 3.03 (1.20-3.40) K/uL [place] # (Auto) 3.94 H (0.11-0.59) K/uL Eos # (Auto) 0.09 (0.00-0.50) K/uL Baso # (Auto) 0.09 (0.00-0.20) K/uL Immature Gran # (Auto) 0.80 H (0.01-0.20) K/uL Echinocytes 2+ Acanthocytes (Spur) 2+ PT 12.2 H (9.0-12.0) Seconds INR 1.1 (0.9-1.1) APTT 34 H (21-31) Seconds PTT Ratio 1.2 VBG pH 7.34 L (7.36-7.41) VBG pCO2 45 (38-50) mmHg VBG pO2 42 mmHg VBG HCO3 24 mmol/L VBG O2 Saturation 71.7 % VBG Base Excess -1.7 mEq/L Sodium 134 L 134 L (136-145) mmol/L Potassium 4.1 3.9 (3.5-5.1) mmol/L Chloride 99 101 (98-107) mmol/L Carbon Dioxide 24 23 (21-32) mmol/L Anion Gap 11 10 (3-11) BUN 34 H 35 H (6-23) mg/dl Creatinine 2.49 H 2.45 H (0.6-1.2) mg/dl Est Cr Clr Drug Dosing Not Reportable 22.2 Est GFR ( Amer) 21.2 21.6 ml/min Est GFR (Non-Af Amer) 18.3 18.6 ml/min BUN/Creatinine Ratio 13.7 14.3 (10-20) Glucose 206 H 199 H (70-99(Fasting)) mg/dl Lactate 1.1 (0.4-2.0) mmol/L Calcium 9.2 8.9 (8.6-10.3) mg/dl Magnesium 1.5 L (1.7-2.4) mg/dl Total Bilirubin 2.2 H 1.9 H (0.2-1.0) mg/dl Direct Bilirubin 0.9 H (0-0.2) mg/dl AST 18 16 (13-39) U/L ALT 10 10 (7-52) U/L Alkaline Phosphatase 104 99 (34-104) U/L Troponin I High Sens 37.0 H (0-14) pg/ml Total Protein 7.5 6.9 (6.0-8.3) gm/dl Albumin 3.9 3.7 (3.4-5.0) gm/dl Globulin 3.6 (2.5-4.0) gm/dl Albumin/Globulin Ratio 1.1 (0.9-2) Procalcitonin 0.87 H (0-0.5) ng/ml Administered Medications Discontinued Medications Sodium Chloride (Nss) 500 mls @ 999 mls/hr IV .Q31M ONE Stop: 04/26/23 16:42 Last Infusion: 04/26/23 17:09 Dose: Infused Documented By: Admin: 04/26/23 16:38 Dose: 999 mls/hr Documented By: OL Cefepime HCl (Maxipime) 2,000 mg in 20 mls @ 5 mls/min IV NOW STA; Protocol Stop: 04/26/23 16:15 Last Admin: 04/26/23 17:14 Dose: 5 mls/min Documented By: OL Sodium Chloride (Nss) 1,000 mls @ 999 mls/hr IV .Q1H1M ONE Stop: 04/26/23 17:22 Last Admin: 04/26/23 17:09 Dose: 999 mls/hr Documented By: OL Imaging Data My Impression: 1 view chest x-ray was obtained in the emergency department. My interpretation is left-sided infiltrate, final report below. CT of the chest was obtained in the emergency department. My interpretation is left-sided infiltrate, no free air, final report below. Radiologist's Impression: Chest X-Ray 04/26/23 15:01 XR chest 1V not portable HISTORY: cough COMPARISON: Chest 12/27/2022. FINDINGS: No pneumothorax. No pleural effusions. The heart remains enlarged. There are poststernotomy changes. Mild interstitial thickening. This is likely chronic. There is a 7.9 cm masslike density overlying the left mid to lower lung zone. This is new compared the prior study and therefore may be external to the patient. IMPRESSION: A 7.9 cm lobular density overlying the left mid to lower lung zone which is new compared the prior study. Therefore, this may be external to the patient. Follow-up PA and lateral views of the chest are recommended to exclude the possibility of a pulmonary lesion. ACT 112: Negative or not required by law. Electronically signed by: Nick Garcia M.D. 04/26/2023 3:[address] 04/26/23 16:11 CT chest diagnostic wo con CT DOSE: 746.84 mGy.cm HISTORY: Abnormal chest x-ray. left sided infiltrate TECHNIQUE: Multiaxial CT images of the chest were performed without contrast. A dose lowering technique was utilized adhering to the principles of ALARA. COMPARISON: Chest CT 07/20/2020. FINDINGS: The central airways are patent. No pneumothorax. No pleural effusions. Small patchy density within the base of the right lower lobe. A few subcentimeter nodules within the right lung remains stable. These are considered to be benign given the long-term stability. No new pulmonary nodules identified. Dense consolidation involving the majority the left lower lobe which is new from the prior study. This favors a pneumonia. However, follow-up recommended to ensure resolution and to exclude the possibility of an underlying pulmonary lesion. There is an additional smaller focal area of consolidation within the superior segment of the left lower lobe. This also favors a pneumonia. No acute fractures within the chest. There are poststernotomy changes. Limited views of the upper abdomen demonstrate a normal liver and right adrenal gland. The spleen is surgically absent. Stable 4.3 cm soft tissue density within the left upper quadrant on image 177. This favors splenic tissue. A few prominent mediastinal lymph nodes have slightly increased in size. These may be reactive. The heart is mildly enlarged. No pericardial effusion. Normal esophagus. Calcified plaque within the normal caliber thoracic aorta. IMPRESSION: 1. Dense consolidation seen throughout the majority of the left lower lobe which favors a pneumonia. [address] follow-up recommended to ensure resolution and exclude the possibility of underlying pulmonary lesion. 2. Additional small patchy densities within the base of the right lower lobe and superior segment of the left lower lobe also favor a pneumonia. 3. Borderline mediastinal lymphadenopathy which has progressed. This is likely reactive. Attention at follow-up recommended. 4. Additional findings as described above. ACT 112: Negative or not required by law. Electronically signed by: Nick Garcia M.D. 04/26/2023 5:50 PM Discharge Plan Visit Data Chief Complaint: Back Injury/Pain Stated Complaint: BACK AND FLANK PAIN ED Provider: Reynaldo Key Discharge Problem: Pneumonia, Chest pain Patient Disposition: Being Evaluated by Hospitalist Forms Stand Alone Forms: [facility] [place] [employer] Prescriptions Prescriptions: No Action (DME) pen needle, diabetic [BD Ultra-Fine Short Pen Needle] 31 gauge x 5/16" needle See Rx Instructions .Route Qty: 500 3RF Rx Instructions: Use with insulin pen 5 times a day Dx:E11.9 nitroglycerin 0.4 mg tablet, sublingual 0.4 mg SL Q5M PRN (Reason: Chest Pain) Qty: 25 3RF hydroxyzine HCl 25 mg tablet 25 mg PO QID PRN (Reason: itching) Qty: 90 1RF (DME) OneTouch Verio test strips Strip See Rx Instructions .Route Qty: 100 4RF Rx Instructions: Verio Test Strips, Test QID or as directed pramipexole 0.5 mg tablet 0.5 mg PO HS Qty: 90 3RF atorvastatin 10 mg tablet 10 mg PO QPM Qty: 90 3RF (DME) blood-glucose meter [OneTouch Verio Meter] Misc See Rx Instructions .Route Qty: 1 0RF Rx Instructions: Test QID or as directed (DME) Dexcom G6 Electronic Health Records Specialist Misc See Rx Instructions .Route Qty: 1 0RF Rx Instructions: As directed clopidogrel 75 mg tablet 75 mg PO QAM Qty: 32 6RF sertraline 100 mg tablet 150 mg PO DAILY 90 Days Qty: 135 3RF Trulicity 4.5 mg/0.5 mL pen injector 4.5 mg subcut WK Qty: 2 3RF (DME) Dexcom G6 Transmitter Device See Rx Instructions .Route Qty: 1 0RF Rx Instructions: As directed furosemide 40 mg tablet 40 mg PO DAILY PRN (Reason: weight gain) Qty: 90 1RF Hold Instructions: ROBERT cyanocobalamin (vitamin B-12) 5,000 mcg tablet,disintegrating 5,000 mcg PO QAM ferrous gluconate 324 mg (38 mg iron) tablet 324 mg PO BID albuterol sulfate 90 mcg/actuation HFA aerosol inhaler 2 puff inhalation Q6H PRN (Reason: Shortness Of Breath Or Wheezing) Qty: 18 3RF (DME) Diabetic Shoes Misc See Rx Instructions .Route Qty: 1 0RF Rx Instructions: As directed. E11.9, Z79.4 (DME) flash glucose sensor Kit See Rx Instructions .Route Qty: 1 0RF Rx Instructions: As directed E11.9, Z79.4 (DME) flash glucose scanning reader Misc See Rx Instructions .Route Qty: 1 0RF Rx Instructions: As directed E11.9, Z79.4 (DME) Dexcom G6 Sensor Device See Rx Instructions .Route Qty: 3 3RF Rx Instructions: As directed insulin glargine [Lantus Solostar U-100 Insulin] 100 unit/mL (3 mL) insulin pen 30 unit subcut BID 90 Days Qty: 54 3RF ranolazine 500 mg tablet extended release 12 hr 500 mg PO BID Qty: 180 3RF isosorbide mononitrate 30 mg tablet extended release 24 hr 30 mg PO DAILY Qty: 90 1RF magnesium oxide 400 mg Capsule 400 mg PO BID Probiotic 3 billion cell Capsule 1 cap PO HS multivitamin [Multiple Vitamins] Tablet 1 tab PO QAM ascorbic acid (vitamin C) 1,000 mg Tablet Extended Release 1,000 mg PO QAM zinc gluconate 50 mg Tablet 50 mg PO DAILY insulin lispro [Humalog KwikPen Insulin] 100 unit/mL Insulin Pen 1 sliding scale dose SUBCUT TID triamcinolone acetonide 0.1 % cream 1 applic topical BID PRN (Reason: Skin Irritation) Rx Instructions: Use for no longer than 2 wks. aspirin 81 mg Tablet,Delayed Release (Dr/Ec) 81 mg PO QAM Qty: 0 0RF metoprolol succinate 25 mg tablet extended release 24 hr 50 mg PO QAM Referrals Referrals: Gretchen Sanders MD [Primary Care Provider] - Discharge Problem: Pneumonia Qualifiers: Pneumonia type: due to unspecified organism Laterality: left Lung location: l ower lobe of lung Qualified Code(s): J18.9 - Pneumonia, unspecified organism Chest pain Qualifiers: Chest pain type: unspecified Qualified Code(s): R07.9 - Chest pain, unspecified
[2023-04-26] MEDS ORDERED: SODIUM CHLORIDE 0.9% 1,000 ML IV ONE (16:22)
[2023-04-26 17:02] LABS: Base Excess VBG -1.7 mEq/L; HCO3 VBG 24 mmol/L; Oxygen Saturation VBG 71.7 %; PCO2 VBG 45 mmHg (38-50); PO2 VBG 42 mmHg; pH VBG 7.34 (7.36-7.41)
[2023-04-26 17:27] LABS: Albumin Level 3.7 gm/dl (3.4-5.0); BUN Creatinine Ratio 14.3 (10-20); Bilirubin Direct 0.9 mg/dl (0-0.2); Bilirubin,Total 1.9 mg/dl (0.2-1.0); Calcium 8.9 mg/dl (8.6-10.3); Creatinine Clr Calc Pharmacy 22.2 ml/min; Est GFR (African American) 21.6 ml/min; Est GFR (Non-African American) 18.6 ml/min; Magnesium 1.5 mg/dl (1.7-2.4); Potassium 3.9 mmol/L (3.5-5.1); Total Protein 6.9 gm/dl (6.0-8.3)
[2023-04-26 17:42] LABS: INR 1.1 (0.9-1.1); Partial Thromboplastin Ratio 1.2; Partial Thromboplastin Time 34 Seconds (21-31); Prothrombin Time 12.2 Seconds (9.0-12.0)
--- NOTE | 2023-04-26 17:52 | CT Scan Report ---
CT chest diagnostic wo con CT DOSE: 746.84 mGy.cm HISTORY: Abnormal chest x-ray. left sided infiltrate TECHNIQUE: Multiaxial CT images of the chest were performed without contrast. A dose lowering techni que was utilized adhering to the principles of ALARA. COMPARISON: Chest CT 07/20/2020. FINDINGS: The central airways are patent. No pneumothorax. No pleural effusions. Small patchy density within the base of the right lower lobe. A few subcentimeter nodules within the right lung remains s table. These are considered to be benign given the long-term stability. No new pulmonary nodules iden tified. Dense consolidation involving the majority the left lower lobe which is new from the prior st udy. This favors a pneumonia. However, follow-up recommended to ensure resolution and to exclude the possibility of an underlying pulmonary lesion. There is an additional smaller focal area of consolida tion within the superior segment of the left lower lobe. This also favors a pneumonia. No acute fract ures within the chest. There are poststernotomy changes. Limited views of the upper abdomen demonstra te a normal liver and right adrenal gland. The spleen is surgically absent. Stable 4.3 cm soft tissue density within the left upper quadrant on image 177. This favors splenic tissue. A few prominent med iastinal lymph nodes have slightly increased in size. These may be reactive. The heart is mildly enla rged. No pericardial effusion. Normal esophagus. Calcified plaque within the normal caliber thoracic aorta. IMPRESSION: 1. Dense consolidation seen throughout the majority of the left lower lobe which favors a pneumonia. [address] follow-up recommended to ensure resolution and exclude the possibility of underlying pulmonary lesion. 2. Additional small patchy densities within the base of the right lower lobe and superior segment of the left lower lobe also favor a pneumonia. 3. Borderline mediastinal lymphadenopathy which has progressed. This is likely reactive. Attention at follow-up recommended. 4. Additional findings as described above. ACT 112: Negative or not required by law. Electronically signed by: Nick Garcia M.D. 04/26/2023 5:50 PM
[2023-04-26] MEDS ORDERED: ACETAMINOPHEN 500 MG TAB PO ONE (19:00)
[2023-04-26] MEDS ORDERED: ACETAMINOPHEN W/CODEINE #3 1 TAB PO ONE (19:08)
[2023-04-26] MEDS ORDERED: MoRPHine SULFATE 2 MG/ML CARP IV STA (19:21)
[2023-04-26] MEDS ORDERED: ONDANSETRON INJ 2 MG/ML 2 ML VIAL IV PRN (19:21)
[2023-04-26] MEDS ORDERED: PLASMA-LYTE A 1,000 ML IV SCH (19:30)
--- NOTE | 2023-04-26 19:33 | History & Physical Report ---
Date of Service April 26, 2023 Assessment & Plan (1) Pneumonia: Plan: LLL PNA - Dense consolidation. Received 30 cc/kg of ideal body weight of fluids while in the ER Clinically poor appearance, hypoxic, cough, leukocytosis of 30 Due to multiple comorbidities, severe tense pneumonia will cover broadly. Cefepime with vancomycin. MRSA nares pending. Blood cultures pending. Sputum culture pending Continue cefepime renally adjusted, discontinue vancomycin if MRSA nare returns positive Submental oxygen as needed (2) Chronic kidney disease, stage 4 (severe): Plan: Baseline creatinine ranging from 1.692.4 Creatinine 2.45 on admission Patient received IV fluids Magnesium repleted Trend daily renally adjust medication (3) Chronic combined systolic and diastolic CHF (congestive heart failure): Plan: Clinically volume depleted on admission, received sepsis IV fluids. Patient with sepsis and pneumonia on admission. Additional 1 L of fluids at low maintenance rates given for tachycardia, clinically improved after initial boluses. If uptrending hypoxia discontinue fluids and follow carefully for s igns of volume overload due to history of With history of bypass and PCI. No chest pain on admission. High-sensitivity troponin 37/42, no evidence of territorial ischemia. Suspect demand ischemia Continue DAPT, isosorbide, home metoprolol (4) HTN (hypertension): Plan: Home medications continue (5) Diabetes: Plan: Continue glargine 60 units total daily dose, scaled short acting insulin, goal BSG 601373. DM 2 diet Plan DVT prophylaxis: Heparin due to ROBERT Diet: DM 2, heart healthy Disposition: PCU CODE STATUS: Full History of Present Illness Primary Care Provider: Gretchen Sanders MD 3 days of deep cough with green sputum production, feverish, some night sweats. Feels tired and washed out. Pts at bedside 'shes been weak and washed out' for 3 days. No preceding viral URI. no chest pain or chest pressure. Has hx of bipass and PCI with stents, recent stress test with ?ischemic findings, cath was normal and DSE thought to be false positive. Has some low back pain when coughing, otherwise no pain. Vomited x1 after getting tylenol/codeine today. Was not having coarse respiration prior, has been since. Suctioning was performed by nursing at bedside. She feels midly short of breath. Denies weight gain. 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 Medical History: Reviewed Medications: Reviewed Surgical History: Reviewed Family history: Reviewed Allergies: Reviewed Social History: Reviewed, no tobacco/etoh Code Status: Full Allergies Allergy/AdvReac Type Severity Reaction Status Date / Time isosorbide Allergy Intermediate Rash Verified 04/26/23 18:10 nickel Allergy Intermediate Rash Verified 04/26/23 18:10 Penicillins Allergy Intermediate Numbness Verified 04/26/23 18:10 of lips prasugrel Allergy Intermediate RASH,ITCHY Verified 04/26/23 18:10 Home Medications Medication Instructions Recorded Confirmed Type ascorbic acid (vitamin C) 1,000 mg 1,000 mg PO QAM 02/16/18 04/26/23 History tablet,extended release lactobacillus combination no.4 3 1 cap PO HS 02/16/18 04/26/23 History billion cell capsule (Probiotic) magnesium oxide 400 mg PO BID 02/16/18 04/26/23 History multivitamin (Multiple Vitamins 1 tab PO QAM 02/16/18 04/26/23 History tablet) cyanocobalamin (vitamin B-12) 5,000 mcg PO QAM 03/18/19 04/26/23 History 5,000 mcg disintegrating tablet ferrous gluconate 324 mg (38 mg 324 mg PO BID 03/18/19 04/26/23 History iron) tablet albuterol sulfate 90 mcg/actuation 2 puff inhalation Q6H PRN 07/24/20 04/26/23 Rx aerosol inhaler Shortness Of Breath Or Wheezing #18 grams pen needle, diabetic 31 gauge x #500 ea 01/14/22 04/21/23 Rx 5/16" (BD Ultra-Fine Short Pen Needle) metoprolol succinate 25 mg 50 mg PO QAM 02/11/22 04/26/23 History tablet,extended release 24 hr hydroxyzine HCl 25 mg tablet 25 mg PO QID PRN itching #90 tabs 04/08/22 04/26/23 Rx nitroglycerin 0.4 mg sublingual 0.4 mg sublingual Q5M PRN Chest 04/08/22 04/26/23 Rx tablet Pain #25 tabs Diabetic Shoes #1 ea 04/19/22 04/21/23 Rx blood sugar diagnostic (OneTouch #100 ea 04/29/22 04/21/23 Rx Verio test strips) pramipexole 0.5 mg tablet 0.5 mg PO HS #90 tabs 06/14/22 04/26/23 Rx atorvastatin 10 mg tablet 10 mg PO QPM #90 tabs 06/25/22 04/26/23 Rx flash glucose scanning reader #1 ea 06/25/22 04/21/23 Rx flash glucose sensor #1 ea 06/25/22 04/21/23 Rx blood-glucose meter (OneTouch #1 ea 07/25/22 04/21/23 Rx Verio Meter) blood-glucose meter,continuous #1 ea 08/02/22 04/21/23 Rx (Dexcom G6 Sheet Manager) clopidogrel 75 mg tablet 75 mg PO QAM #32 tabs 08/16/22 04/26/23 Rx insulin lispro 100 unit/mL 1 sliding scale dose subcut TID 12/27/22 04/26/23 History subcutaneous pen (Humalog KwikPen (U-100) Insulin) triamcinolone acetonide 0.1 % 1 applic topical BID PRN Skin 12/27/22 04/26/23 History topical cream Irritation zinc gluconate 50 mg tablet 50 mg PO DAILY 12/27/22 04/26/23 History aspirin 81 mg tablet,delayed 81 mg PO QAM #0 tabs 12/28/22 04/26/23 Rx release sertraline 100 mg tablet 150 mg (1.5 x 100 mg) PO DAILY 90 02/17/23 04/26/23 Rx days #135 tabs dulaglutide 4.5 mg/0.5 mL 4.5 mg (0.5 mL) subcut WK #2 mL 03/10/23 04/26/23 Rx subcutaneous pen injector (Trulicity) blood-glucose sensor (Dexcom G6 #3 ea 03/17/23 04/21/23 Rx Sensor device) insulin glargine 100 unit/mL (3 30 unit (0.3 mL) subcut BID 90 03/17/23 04/26/23 Rx mL) subcutaneous pen (Lantus days #54 mL Solostar U-100 Insulin) blood-glucose transmitter (Dexcom #1 ea 03/18/23 04/21/23 Rx G6 Transmitter device) furosemide 40 mg tablet 40 mg PO DAILY PRN weight gain #90 04/01/23 04/26/23 Rx tabs isosorbide mononitrate 30 mg 30 mg PO DAILY #90 tabs 04/02/23 04/26/23 Rx tablet,extended release 24 hr ranolazine 500 mg tablet,extended 500 mg PO BID #180 tabs 04/02/23 04/26/23 Rx release,12 hr Past Med/Surg History Medical History Chronic kidney disease, stage 4 (severe) HTN (hypertension) Vitamin D deficiency History of angina pectoris RESOLVED > HAS BLOCKAGE AND PLANNED HEART CATH WITH STENT 03/22/19 Diabetes mellitus type 2, insulin dependent Diabetes Acute HFrEF (heart failure with reduced ejection fraction) follows with Dr. Robledo Stress-induced cardiomyopathy Restless legs syndrome Abnormal diffusion capacity determined by pulmonary function test Restrictive lung disease rare res inh use Myocardial infarction 01/2018 - HEART CATH AND ONE OF DOUBLE VESSEL IS BLOCKED AND NO STENT. FOLLOW WITH DR ROBLEDO Coronary artery disease Chronic combined systolic and diastolic CHF (congestive heart failure) Dyslipidemia CAD (coronary artery disease) NSTEMI (non-ST elevated myocardial infarction) 2017 GERD (gastroesophageal reflux disease) Surgical History Hx of right cataract extraction Hx of cataract extraction lt. History of tonsillectomy Hx of colonoscopy History of total abdominal hysterectomy and bilateral salpingo-oophorectomy Hx laparoscopic cholecystectomy Hx of splenectomy History of open reduction and internal fixation (ORIF) procedure RIGHT HIP H/O heart artery stent TOTAL OF 5 STENTS, LAST ONE WAS PLACED 03/2019 History of open heart surgery 2017 CABG X 2 [facility] Family History Unknown No problems noted. 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 NAD. Cooperative. HEENT: Atraumatic, normocephalic. Pulm: Coarse diffusely, worse L>R. -wheezes, -rales. On NC. Cardiac: Regular tachycardic, -mrg. Radial pulses intact and symmetrical. Abdominal: Nontender, nondistended, soft. BS present. Ext: warm, dry. Results & Data Results & Data Vital Signs (Past 12 Hours) Vital Signs Temp Pulse Pulse Resp BP BP Pulse Ox 04/26/23 18:30 105 H 30 H 156/84 H 100 04/26/23 18:19 102 H 28 H 100 04/26/23 18:19 102 H 24 156/84 H 100 04/26/23 18:00 104 H 24 99 04/26/23 17:54 159/75 H 04/26/23 17:54 103 H 25 H 100 04/26/23 17:31 104 H 22 99 04/26/23 17:00 100 H 29 H 100 04/26/23 16:58 101 H 04/26/23 16:57 97 H 25 H 100 04/26/23 16:56 105 H 18 159/75 H 99 04/26/23 16:36 98 04/26/23 14:57 37.4 C 94 H 22 146/76 H 93 O2 Del Method O2 Flow Rate 04/26/23 18:30 04/26/23 18:19 04/26/23 18:19 04/26/23 18:00 04/26/23 17:54 04/26/23 17:54 04/26/23 17:31 04/26/23 17:00 04/26/23 16:58 04/26/23 16:57 04/26/23 16:56 Nasal Cannula 3 04/26/23 16:36 Nasal Cannula 2 04/26/23 14:57 Room Air PG Care Time/CCT Total # of Minutes Spent Total Time Spent with Patient: Total time spent is greater than 50% in coordination of care (as documented) at patient's floor/unit and/or counseling patient: Coding Level of Care Code 65732 INT INP/OBS CARE MIN Diagnoses Pneumonia J18.9 Laterality: left Lung location: lower lobe of lung Pneumonia type: due to unspecified organism Chronic kidney disease, stage 4 (severe) N18.4 Chronic combined systolic and diastolic CHF (congestive heart failure) I50.42 Essential hypertension I10 Hypertension type: essential hypertension Diabetes E11.9 (1) Pneumonia Laterality: left Lung location: lower lobe of lung Pneumonia type: due to unspecified organism Qualified Code(s): J18.9 - Pneumonia, unspecified organism (4) HTN (hypertension) Hypertension type: essential hypertension Qualified Code(s): I10 - Essential (primary) hypertension
[2023-04-26] MEDS: MAGNESIUM SULFATE / D5W 1 GM/100 ML BAG IV SCH ×3 (19:48→23:57)
[2023-04-26] MEDS ORDERED: VANCOMYCIN CONSULT ACTIVE PRN (19:50)
[2023-04-26] MEDS ORDERED: VANCOMYCIN HCL 2,500 MG in SODIUM CHLORIDE 0.9% 500 ML IV ONE (19:50)
[2023-04-26] MEDS ORDERED: GLUCAGON FOR INJ 1 MG VIAL SQ PRN (19:56)
[2023-04-26] MEDS ORDERED: GLUCOSE 40% GEL 15 GM TUBE PO PRN (19:56)
[2023-04-26] MEDS ORDERED: PHARMACY GLYCEMIC MGMT CONSULT PRN (19:56)
[2023-04-26] MEDS ORDERED: GLUCOSE 10 TAB/TUBE PO PRN (19:56)
[2023-04-26] MEDS ORDERED: DEXTROSE 50% 50 ML SYRINGE IV PRN (19:56)
--- NOTE | 2023-04-26 20:05 | Pharmacy Report ---
Pharmacy PK ABX Note - Date of Service April 26, 2023 - Assessment and Plan Assessment 73 year old F receiving cefepime and vancomycin for treatment of LLL PNA. Nasal MRSA pending. May be able to discontinue vancomycin if results as negative. ROBERT noted - will dose vancomycin via level for now. PMH: diabetes, splenectomy, restrictive lung disease Plan Vancomycin * Loading dose: 2500 mg IV x 1 * Random level ordered for: 12/10 AM Pharmacy will continue to follow and will adjust dose/frequency as necessary. Thank you. Pharmacy has transitioned to AUC monitoring for vancomycin. AUC/KETTY is the preferred PK/PD target and is associated with decreased risk of nephrotoxicity compared to traditional trough targets.
[2023-04-26 20:12] LABS: Influenza A virus by PCR Negative (Neg); Influenza B virus by PCR Negative (Neg); RSV by PCR Negative (Neg); SARS CoV2 RNA(COVID-19) Ceph NEGATIVE (Negative)
[2023-04-26] MEDS ORDERED: BENZONATATE 100 MG CAPSULE PO ONE (21:00)
[2023-04-26] MEDS ORDERED: ACETAMINOPHEN 325 MG TAB PO PRN (21:19)
[2023-04-26] MEDS: LANTUS PER UNIT CHARGE SQ SCH (21:36)
[2023-04-26] MEDS: INSULIN ASPART PER UNIT CHARGE SC SCH (21:37)
[2023-04-26] MEDS: RANOLAZINE 500 MG ER TAB PO SCH (21:58)
[2023-04-26] MEDS: ATORVASTATIN 10 MG TAB PO SCH (21:58)
[2023-04-26] MEDS: PRAMIPEXOLE DIHYDROCHLO 0.5 MG TAB PO SCH (21:59)
[2023-04-27] MEDS: ACETAMINOPHEN 500 MG TAB PO SCH ×4 (01:26→21:12)
[2023-04-27 04:35] LABS: Appearance Urine Turbid (Clear); Blood Urine Negative (Negative); Color Urine Dark Yellow; Epithelial Cell Urine Auto >30 /lpf (0-5); Glucose Urine UA Negative (Negative); Ketones Urine Trace (Negative); Leukocyte Esterase Urine Trace (Negative); Nitrite Urine Positive (Negative); Protein Urine 1+ (Negative); Specific Gravity Urine 1.023 (1.000-1.030); Urobilinogen Urine Negative (Negative)
[2023-04-27 04:36] LABS: Bilirubin Urine 1+ (Negative)
[2023-04-27] MEDS ORDERED: CEFEPIME 1,000 MG in SYRINGE 0 ML IV SCH (05:00)
[2023-04-27 05:17] LABS: RBC Urine Automated 0-4 /hpf (0-4)
[2023-04-27 05:18] LABS: Bacteria Urine Automated 2+ (Negative)
[2023-04-27 07:03] LABS: ALC (manual) 2.67 K/uL (1.2-3.4); ANC (manual) 38.72 K/uL (1.4-6.5); Acanthocytes 1+; Echinocytes 2+; Hematocrit (blood only) 36.6 % (37.0-47.0); Hemoglobin 11.5 g/dl (12.0-16.0); Lymphocytes # (manual) 2.67 K/uL (1.2-3.4); Lymphocytes % (manual) 6 %; Mean Corpuscular Hemoglobin 29.6 pg (25.0-34.0); Mean Corpuscular Hgb Conc 31.4 g/dL (32.0-36.0); Mean Corpuscular Volume 94.1 fL (80.0-100.0); Mean Platelet Volume 11.6 fL (9.4-12.4); Monocytes # (manual) 3.12 K/uL (0.11-0.59); Monocytes % (manual) 7 %; Neutrophils # (manual) 38.72 K/uL (1.40-6.50); Neutrophils % (manual) 87 %; Platelet Count 233 K/uL (130-400); RDW Standard Deviation 47.7 fL (36.4-46.3); Red Blood Count 3.89 M/uL (4.20-5.40); Toxic Vacuolation 1+
[2023-04-27 07:08] LABS: Calcium 8.9 mg/dl (8.6-10.3); Magnesium 2.3 mg/dl (1.7-2.4); Potassium 4.2 mmol/L (3.5-5.1)
[2023-04-27 07:14] LABS: BUN Creatinine Ratio 14.3 (10-20); Creatinine Clr Calc Pharmacy 18.9 ml/min; Est GFR (African American) 17.9 ml/min; Est GFR (Non-African American) 15.5 ml/min
--- NOTE | 2023-04-27 07:58 | Pharmacy Report ---
Pharmacy Glycemic Short Note 2 - Date of Service April 27, 2023 - Glycemic Short BSG Results (Last 24 hours): 04/26/23 04/26/23 04/26/23 15:30 16:52 20:40 Glucose 206 H 199 H POC Glucose 164 H 04/26/23 04/27/23 04/27/23 21:16 05:15 07:13 Glucose 194 H POC Glucose 166 H 177 H OUTPATIENT ANTIDIABETIC REGIMEN: * Lantus 30 units SQ BID * Humalog SS * Trulicity 4.5mg SQ Weekly ASSESSMENT: * 73 yo female admitted with LLL PNA, on IV Cefepime and Vancomycin, PMH T2DM. * Fasting BG 177mg/dl - continue home dose of basal insulin split BID. * Eating T2DM diet, tighten CF & CR at this time and titrate to goal BSG. PLAN FOR INPATIENT GLYCEMIC CONTROL: * Hold outpatient diabetes medications * Basal insulin * Lantus 30 units SQ BID * Bolus insulin * NovoLog per scale ACHS or Q6hrs while NPO * Goal Range: Low 110 mg/dL - High 140 mg/dL * Correction Factor: 15 mg/dL/unit * Nutritional / Prandial insulin per carb ratio of 1 unit per 6 grams CHO consumed
--- NOTE | 2023-04-27 07:59 | Electrocardiogram Report ---
Test Reason : Blood Pressure : / mmHG Vent. Rate : 100 BPM Atrial Rate : 100 BPM P-R Int : 230 ms QRS Dur : 098 ms QT Int : 334 ms P-R-T Axes : 081 -48 092 degrees QTc Int : 430 ms Sinus rhythm with 1st degree A-V block Left anterior fascicular block Left ventricular hypertrophy with repolarization abnormality Poor R wave progression, consider anterior MT vs. lead placement vs. LVH Abnormal ECG When compared with ECG of 27-DEC-2022 13:28, Aberrant conduction is no longer Present T wave inversion more evident in Lateral leads Confirmed by David Epperson ([id number]) on 04/27/2023 7:59:05 AM Referred By: REFERRED SELF Confirmed By:Dilshad Epperson
[2023-04-27] MEDS: BENZONATATE 100 MG CAPSULE PO SCH ×3 (08:09→21:12)
[2023-04-27] MEDS: RANOLAZINE 500 MG ER TAB PO SCH ×2 (08:10→21:12)
[2023-04-27] MEDS: SERTRALINE HCL 50 MG TABLET PO SCH (08:11)
[2023-04-27] MEDS: ISOSORBIDE MONO EXTENDED REL 30 MG TABCR PO SCH (08:11)
[2023-04-27] MEDS: CLOPIDOGREL BISULFATE 75 MG TAB PO SCH (08:12)
[2023-04-27] MEDS: ASPIRIN 81 MG ECTAB PO SCH (08:12)
[2023-04-27] MEDS: LANTUS PER UNIT CHARGE SQ SCH ×2 (08:17→21:12)
[2023-04-27] MEDS: INSULIN ASPART PER UNIT CHARGE SC SCH ×4 (08:18→21:06)
[2023-04-27] MEDS ORDERED: METOPROLOL SUCC 50MG EXT REL TAB PO SCH (09:00)
[2023-04-27 09:15] LABS: White Blood Count 44.51 K/ul (4.8-10.8)
[2023-04-27] MEDS: SODIUM CHLORIDE 0.9% 1,000 ML IV SCH ×2 (11:51→18:20)
--- NOTE | 2023-04-27 16:46 | Hospitalist Progress Note ---
Date of Service April 27, 2023 Assessment & Plan (1) Pneumonia: Plan: LLL PNA - Dense consolidation. -Improving, de-escalate IV antibiotic treatment to Rocephin and Zithromax Clinically poor appearance, hypoxic, cough, leukocytosis of 30 Blood cultures pending. Sputum culture pending Continue cefepime renally adjusted, discontinue vancomycin if MRSA nares returns positive Currently on room air (2) ROBERT (acute kidney injury): Plan: Baseline creatinine is between 1.69-2.4, presented to the hospital with creatinine of 2.45, started on IV fluid, most likely secondary to pneumonia/se psis (3) Chronic kidney disease, stage 4 (severe): Plan: Baseline creatinine ranging from 1.692.4 Creatinine 2.45 on admission The patient is hypotensive today systolic blood pressure in 80s, patient is asymptomatic, start IV fluids saline at rate of 125 an hour Magnesium repleted Trend daily renally adjust medication (4) Chronic combined systolic and diastolic CHF (congestive heart failure): Plan: Mildly elevated troponin, demand ischemia, compensated heart failure, monitor for now continue home with (5) HTN (hypertension): Plan: Hypotensive due to sepsis hold home medications (6) Diabetes: Plan: Continue glargine 60 units total daily dose, scaled short acting insulin, goal BSG 424955. DM 2 diet Plan DVT prophylaxis: Heparin due to ROBERT Diet: DM 2, heart healthy Disposition: PCU CODE STATUS: Full Admission and Anticipated Discharge Date Admission Date: April 26, 2023 Physical Exam Physical Exam: General: A&Ox3. NAD. Cooperative. HEENT: Atraumatic, normocephalic. Pulm: Coarse diffusely, worse L>R. -wheezes, -rales. On NC. Cardiac: Regular tachycardic, -mrg. Radial pulses intact and symmetrical. Abdominal: Nontender, nondistended, soft. BS present. Ext: warm, dry. Results & Data Results & Data Vital Signs (Past 12 Hours) Vital Signs Temp Pulse Pulse Resp BP BP Pulse Ox 04/27/23 16:24 36.9 C 68 19 108/65 91 04/27/23 15:15 63 04/27/23 13:16 115/72 04/27/23 11:20 37.0 C 66 18 87/43 L 93 04/27/23 09:48 04/27/23 08:04 36.9 C 76 19 108/60 98 04/27/23 07:10 74 O2 Del Method O2 Flow Rate 04/27/23 16:24 Room Air 04/27/23 15:15 04/27/23 13:16 04/27/23 11:20 Room Air 04/27/23 09:48 Room Air 04/27/23 08:04 Nasal Cannula 2.0 04/27/23 07:10 PG Care Time/CCT Total # of Minutes Spent Total Time Spent with Patient: Total time spent is greater than 50% in coordination of care (as documented) at patient's floor/unit and/or counseling patient: Coding Level of Care Code 41348 SUB INP/OBS CARE 350MIN Diagnoses Pneumonia J18.9 Laterality: left Lung location: lower lobe of lung Pneumonia type: due to unspecified organism ROBERT (acute kidney injury) N17.9 Chronic kidney disease, stage 4 (severe) N18.4 Chronic combined systolic and diastolic CHF (congestive heart failure) I50.42 Essential hypertension I10 Hypertension type: essential hypertension Diabetes E11.9 (1) Pneumonia Laterality: left Lung location: lower lobe of lung Pneumonia type: due to unspecified organism Qualified Code(s): J18.9 - Pneumonia, unspecified organism (5) HTN (hypertension) Hypertension type: essential hypertension Qualified Code(s): I10 - Essential (primary) hypertension
[2023-04-27] MEDS: cefTRIAXone SODIUM 2,000 MG in DEXTROSE 5 % MINI-B 50 ML IV SCH (17:44)
[2023-04-27] MEDS: AZITHROMYCIN 250 MG TAB PO SCH (18:17)
[2023-04-27] MEDS: PRAMIPEXOLE DIHYDROCHLO 0.5 MG TAB PO SCH (21:12)
[2023-04-27] MEDS: ATORVASTATIN 10 MG TAB PO SCH (21:12)
[2023-04-28] MEDS: SODIUM CHLORIDE 0.9% 1,000 ML IV SCH ×4 (00:54→21:31)
[2023-04-28] MEDS: ACETAMINOPHEN 500 MG TAB PO SCH ×4 (01:59→21:31)
[2023-04-28 06:02] LABS: Hematocrit (blood only) 33.8 % (37.0-47.0); Hemoglobin 10.7 g/dl (12.0-16.0); Mean Corpuscular Hemoglobin 29.4 pg (25.0-34.0); Mean Corpuscular Hgb Conc 31.7 g/dL (32.0-36.0); Mean Corpuscular Volume 92.9 fL (80.0-100.0); Mean Platelet Volume 11.9 fL (9.4-12.4); Platelet Count 204 K/uL (130-400); RDW Coefficient of Variation 14.2 % (11.5-14.5); RDW Standard Deviation 48.1 fL (36.4-46.3); Red Blood Count 3.64 M/uL (4.20-5.40)
[2023-04-28 06:09] LABS: BUN Creatinine Ratio 14.6 (10-20); Calcium 8.3 mg/dl (8.6-10.3); Creatinine Clr Calc Pharmacy 13.8 ml/min; Est GFR (African American) 12.3 ml/min; Est GFR (Non-African American) 10.6 ml/min; Potassium 4.1 mmol/L (3.5-5.1)
[2023-04-28 07:11] LABS: Estimated Average Glucose 111 mg/dl; Hemoglobin A1C 5.5 % (4.5-5.6)
[2023-04-28 07:58] LABS: Basophils % (auto) 0.3 %; Eosinophils % (auto) 1.7 %; Lymphocytes # (auto) 2.59 K/uL (1.20-3.40); Lymphocytes % (auto) 9.1 %; Monocytes # (auto) 2.43 K/uL (0.11-0.59); Monocytes % (auto) 8.5 %; Neutrophils # (auto) 22.68 K/uL (1.40-6.50); Neutrophils % (auto) 79.4 %
[2023-04-28] MEDS: ISOSORBIDE MONO EXTENDED REL 30 MG TABCR PO SCH (08:05)
[2023-04-28] MEDS: SERTRALINE HCL 50 MG TABLET PO SCH (08:05)
[2023-04-28] MEDS: RANOLAZINE 500 MG ER TAB PO SCH ×2 (08:05→21:31)
[2023-04-28] MEDS: ASPIRIN 81 MG ECTAB PO SCH (08:06)
[2023-04-28] MEDS: BENZONATATE 100 MG CAPSULE PO SCH ×3 (08:06→21:31)
[2023-04-28] MEDS: CLOPIDOGREL BISULFATE 75 MG TAB PO SCH (08:06)
[2023-04-28] MEDS: AZITHROMYCIN 250 MG TAB PO SCH (08:06)
[2023-04-28] MEDS: INSULIN ASPART PER UNIT CHARGE SC SCH ×4 (08:10→21:07)
[2023-04-28 08:28] LABS: Acanthocytes 1+; Echinocytes 2+
[2023-04-28] MEDS ORDERED: LANTUS PER UNIT CHARGE SQ SCH ×2 (09:00)
--- NOTE | 2023-04-28 11:40 | Pharmacy Report ---
Pharmacy Glycemic Short Note 2 - Date of Service April 28, 2023 - Glycemic Short BSG Results (Last 24 hours): 04/27/23 04/27/23 04/28/23 16:23 20:08 05:33 Glucose 73 POC Glucose 92 95 04/28/23 04/28/23 07:34 11:15 Glucose POC Glucose 73 90 OUTPATIENT ANTIDIABETIC REGIMEN: * Lantus 30 units SQ BID * Humalog SS * Trulicity 4.5mg SQ Weekly ASSESSMENT: 04/28: * BSGs below goal range the last 24h- 85-98-11-90mg/dL. Received 60 units of basal and 15 units of bolus insulin yesterday. * Continues on antibiotics, decreased PO intake since yesterday afternoon. * Decreased basal ~30% this AM given low fasting BSG- plan to hold tonight's dose. Novolog loosened for now given decreased PO. 04/27: * 73 yo female admitted with LLL PNA, on IV Cefepime and Vancomycin, PMH T2DM. * Fasting BG 177mg/dl - continue home dose of basal insulin split BID. * Eating T2DM diet, tighten CF & CR at this time and titrate to goal BSG. PLAN FOR INPATIENT GLYCEMIC CONTROL: * Hold outpatient diabetes medications * Basal insulin * Lantus 20 units SQ X 1 this AM, reassess basal tomorrow AM * Bolus insulin * NovoLog per scale ACHS or Q6hrs while NPO * Goal Range: Low 110 mg/dL - High 140 mg/dL * Correction Factor: 25 mg/dL/unit * Nutritional / Prandial insulin per carb ratio of 1 unit per 9 grams CHO consumed
--- NOTE | 2023-04-28 17:33 | Hospitalist Progress Note ---
Date of Service April 28, 2023 Assessment & Plan (1) Pneumonia: Plan: LLL PNA - complicated with severe sepsis and hypotension acute kidney injury - Dense consolidation - the patient feels better, continue Rocephin and Zithromax Blood culture sputum culture pending, - leukocytosis trending down, - creatinine is trending up most likely this is due to late effect of hypotension, expect the creatinine is still trending down, tomorrow -Improving, de-escalate IV antibiotic treatment to Rocephin and Zithromax - currently on room air (2) ROBERT (acute kidney injury): Plan: Baseline creatinine is between 1.69-2.4, presented to the hospital with creatinine of 2.45, started on IV fluid, most likely secondary to pneumonia/sepsis/hypertension, trending up today, I am adding patient because he was hypotensive yesterday, expect that trending down tomorrow, order for ultrasound of kidneys (3) Chronic kidney disease, stage 4 (severe): Plan: Baseline creatinine ranging from 1.692.4 Creatinine 2.45 on admission The patient is hypotensive today systolic blood pressure in 80s, patient is asymptomatic, start IV fluids saline at rate of 125 an hour Magnesium repleted Trend daily renally adjust medication (4) Chronic combined systolic and diastolic CHF (congestive heart failure): Plan: Mildly elevated troponin, demand ischemia, compensated heart failure, monitor for now continue home with (5) HTN (hypertension): Plan: Hypotensive due to sepsis hold home medications (6) Diabetes: Plan: Continue glargine 60 units total daily dose, scaled short acting insulin, goal BSG 400478. DM 2 diet Plan DVT prophylaxis: Heparin due to ROBERT Diet: DM 2, heart healthy Disposition: PCU CODE STATUS: Full Admission and Anticipated Discharge Date Admission Date: April 26, 2023 Subjective patient feeling better, however the creatinine is trending up, possibly due to hypotension happened yesterday, I expect in the creatinine started trending down from tomorrow, Physical Exam Physical Exam: General: A&Ox3. NAD. Cooperative. HEENT: Atraumatic, normocephalic. Pulm: Coarse diffusely, worse L>R. -wheezes, -rales. On NC. Cardiac: Regular tachycardic, -mrg. Radial pulses intact and symmetrical. Abdominal: Nontender, nondistended, soft. BS present. Ext: warm, dry. Results & Data Results & Data Vital Signs (Past 12 Hours) Vital Signs Temp Pulse Resp BP BP Pulse Ox O2 Del Method 04/28/23 15:17 36.8 C 69 19 112/52 L 96 Room Air 04/28/23 12:13 36.7 C 64 18 124/80 96 Room Air 04/28/23 07:45 Room Air 04/28/23 07:39 36.9 C 69 19 123/74 93/42 L 95 Room Air PG Care Time/CCT Total # of Minutes Spent Total Time Spent with Patient: Total time spent is greater than 50% in coordination of care (as documented) at patient's floor/unit and/or counseling patient: Coding Level of Care Code 74913 SUB INP/OBS CARE 3/50MIN Diagnoses Pneumonia J18.9 Laterality: left Lung location: lower lobe of lung Pneumonia type: due to unspecified organism ROBERT (acute kidney injury) N17.9 Chronic kidney disease, stage 4 (severe) N18.4 Chronic combined systolic and diastolic CHF (congestive heart failure) I50.42 Essential hypertension I10 Hypertension type: essential hypertension Diabetes E11.9 (1) Pneumonia Laterality: left Lung location: lower lobe of lung Pneumonia type: due to unspecified organism Qualified Code(s): J18.9 - Pneumonia, unspecified organism (5) HTN (hypertension) Hypertension type: essential hypertension Qualified Code(s): I10 - Essential (primary) hypertension
[2023-04-28] MEDS: cefTRIAXone SODIUM 2,000 MG in DEXTROSE 5 % MINI-B 50 ML IV SCH (19:00)
[2023-04-28] MEDS: ATORVASTATIN 10 MG TAB PO SCH (21:31)
[2023-04-28] MEDS: PRAMIPEXOLE DIHYDROCHLO 0.5 MG TAB PO SCH (21:31)
--- NOTE | 2023-04-28 21:51 | Ultrasound Report ---
ULTRASOUND KIDNEYS AND BLADDER CLINICAL HISTORY: Acute renal insufficiency. COMPARISON STUDY: Abdominal CT dated 04/23/2022. TECHNIQUE: Portable real-time, grayscale, and color flow sonography of the kidneys and bladder is per formed. Images are reviewed in the transverse and longitudinal planes. FINDINGS: Kidneys: The kidneys are normal in size and echotexture. The right kidney measures 9.4 x 3.9 x 3.8 cm and the left kidney measures 9.8 x 5.1 x 5.0 cm. There is no hydronephrosis. A 7 mm calculus is see n in the interpolar right kidney. There is no sonographic evidence of contour deforming renal mass le vanessa. No perinephric fluid is identified. Bladder: The bladder is normal in appearance. Ureteral jets were not seen. IMPRESSION: 1. The kidneys are normal in size and without hydronephrosis. 2. Right-sided nephrolithiasis. 6. The bladder is normal as visualized. ACT 112: Negative or not required by law. Electronically signed by: Gianni Polk M.D. 04/28/2023 9:49 PM
[2023-04-29] MEDS: CARBOHYDRATES FOR HYPOGLYCEMIA PO PRN ×2 (00:21→00:53)
[2023-04-29] MEDS: ACETAMINOPHEN 500 MG TAB PO SCH ×4 (01:22→20:51)
[2023-04-29] MEDS: SODIUM CHLORIDE 0.9% 1,000 ML IV SCH (06:14)
[2023-04-29 06:26] LABS: Basophils # (auto) 0.05 K/uL (0.00-0.20); Basophils % (auto) 0.3 %; Eosinophils % (auto) 1.8 %; Hematocrit (blood only) 33.3 % (37.0-47.0); Hemoglobin 10.4 g/dl (12.0-16.0); Immature Granulocytes # (auto) 0.09 K/uL (0.01-0.20); Immature Granulocytes % (auto) 0.5 %; Lymphocytes # (auto) 2.34 K/uL (1.20-3.40); Lymphocytes % (auto) 13.9 %; Mean Corpuscular Hemoglobin 29.1 pg (25.0-34.0); Mean Corpuscular Hgb Conc 31.2 g/dL (32.0-36.0); Monocytes # (auto) 1.62 K/uL (0.11-0.59); Monocytes % (auto) 9.6 %; Neutrophils # (auto) 12.45 K/uL (1.40-6.50); Neutrophils % (auto) 73.9 %; Nucleated RBC # (auto) 0.08 K/uL (0.00-0.12); Nucleated RBC % (auto) 0.5 %; Platelet Count 255 K/uL (130-400); RDW Coefficient of Variation 14.2 % (11.5-14.5); RDW Standard Deviation 48.4 fL (36.4-46.3); Red Blood Count 3.58 M/uL (4.20-5.40); White Blood Count 16.85 K/ul (4.8-10.8)
[2023-04-29 06:44] LABS: BUN Creatinine Ratio 16.5 (10-20); Calcium 8.5 mg/dl (8.6-10.3); Creatinine Clr Calc Pharmacy 16.2 ml/min; Est GFR (Non-African American) 12.1 ml/min; Potassium 4.4 mmol/L (3.5-5.1)
[2023-04-29] MEDS: AZITHROMYCIN 250 MG TAB PO SCH (08:12)
[2023-04-29] MEDS: CLOPIDOGREL BISULFATE 75 MG TAB PO SCH (08:12)
[2023-04-29] MEDS: SERTRALINE HCL 50 MG TABLET PO SCH (08:13)
[2023-04-29] MEDS: BENZONATATE 100 MG CAPSULE PO SCH ×3 (08:13→20:51)
[2023-04-29] MEDS: ASPIRIN 81 MG ECTAB PO SCH (08:13)
[2023-04-29] MEDS: ISOSORBIDE MONO EXTENDED REL 30 MG TABCR PO SCH (08:13)
[2023-04-29] MEDS: RANOLAZINE 500 MG ER TAB PO SCH ×2 (08:13→20:51)
[2023-04-29] MEDS ORDERED: COUGH DROP (SUGAR FREE) LOZ 24 LOZ/1 BOX BUCCAL ONE (08:17)
[2023-04-29] MEDS: INSULIN ASPART PER UNIT CHARGE SC SCH ×4 (09:03→20:04)
--- NOTE | 2023-04-29 13:20 | Pharmacy Report ---
Pharmacy Glycemic Short Note 2 - Date of Service April 29, 2023 - Glycemic Short BSG Results (Last 24 hours): 04/28/23 04/28/23 04/29/23 16:19 20:18 00:17 Glucose POC Glucose 93 85 63 L* 04/29/23 04/29/23 04/29/23 00:43 01:17 05:44 Glucose 82 POC Glucose 64 L* 103 H 04/29/23 04/29/23 07:25 11:13 Glucose POC Glucose 86 88 OUTPATIENT ANTIDIABETIC REGIMEN: * Lantus 30 units SQ BID * Humalog SS * Trulicity 4.5mg SQ Weekly ASSESSMENT: 04/29: * BSGs continue to be below goal range- 59-98-36-86-88mg/dL the last 24h. Received 20 units of Lantus and no bolus insulin yesterday. * No PO intake documented the last 24h. Continues on antibiotics. * Continue to hold further basal insulin for now. Novolog loosened further in the event some PO intake. 04/28: * BSGs below goal range the last 24h- 53-65-51-90mg/dL. Received 60 units of basal and 15 units of bolus insulin yesterday. * Continues on antibiotics, decreased PO intake since yesterday afternoon. * Decreased basal ~30% this AM given low fasting BSG- plan to hold tonight's dose. Novolog loosened for now given decreased PO. 04/27: * 73 yo female admitted with LLL PNA, on IV Cefepime and Vancomycin, PMH T2DM. * Fasting BG 177mg/dl - continue home dose of basal insulin split BID. * Eating T2DM diet, tighten CF & CR at this time and titrate to goal BSG. PLAN FOR INPATIENT GLYCEMIC CONTROL: * Hold outpatient diabetes medications * Basal insulin * hold * Bolus insulin * NovoLog per scale ACHS or Q6hrs while NPO * Goal Range: Low 110 mg/dL - High 140 mg/dL * Correction Factor: 30 mg/dL/unit * Nutritional / Prandial insulin per carb ratio of 1 unit per 12 grams CHO consumed
[2023-04-29] MEDS: cefTRIAXone SODIUM 2,000 MG in DEXTROSE 5 % MINI-B 50 ML IV SCH (16:55)
--- NOTE | 2023-04-29 17:14 | Hospitalist Progress Note ---
Date of Service April 29, 2023 Assessment & Plan (1) Pneumonia: Plan: LLL PNA - complicated with severe sepsis and hypotension acute kidney injury - Dense consolidation - the patient feels better, continue Rocephin and Zithromax Blood culture sputum culture pending, - leukocytosis trending down, - creatinine has finally is peaked and is starting to trend downward -Improving, - currently on room air (2) ROBERT (acute kidney injury): Plan: Baseline creatinine is between 1.69-2.4, presented to the hospital with creatinine of 2.45, started on IV fluid, most likely secondary to pneumonia/se psis/hypertension, seems to have peaked at 3.9. Trending down. 3.5 today. Discontinue IV fluids Retroperitoneal ultrasound negative for obstruction (3) Chronic kidney disease, stage 4 (severe): Plan: Baseline creatinine ranging from 1.692.4 Creatinine 2.45 on admission Magnesium repleted Trend daily renally adjust medication (4) Chronic combined systolic and diastolic CHF (congestive heart failure): Plan: Mildly elevated troponin, demand ischemia, compensated heart failure, monitor for now Discontinue IV fluids (5) HTN (hypertension): Plan: was initially Hypotensive due to sepsis blood pressure creeping up with sepsis improving Monitor Lasix 40 mg as needed on hold for now Continue metoprolol and Imdur (6) Diabetes: Plan: Continue glargine 60 units total daily dose, scaled short acting insulin, goal BSG [id number]. DM 2 diet Plan DVT prophylaxis: Heparin due to ROBERT Diet: DM 2, heart healthy Disposition: PCU CODE STATUS: Full Admission and Anticipated Discharge Date Admission Date: April 26, 2023 Subjective Patient feels well today. Denies chest pain or shortness of breath. Review of Systems Review of Systems: All systems reviewed & are unremarkable except as noted in Subjective Physical Exam Physical Exam: General: Awake, conversant Heart: S1, S2/regular rate and rhythm, no murmur rubs or gallops Lungs: Clear to auscultation bilaterally. Normal effort Abdomen: Soft/nontender/nondistended. No hepatosplenomegaly Extremities: No clubbing/cyanosis. No edema Behavior: Appropriate, cooperative Results & Data Results & Data Vital Signs (Past 12 Hours) Vital Signs Temp Pulse Resp BP BP Pulse Ox O2 Del Method 04/29/23 16:00 36.6 C 75 20 169/92 H 95 Room Air 04/29/23 11:30 36.5 C 76 17 123/62 95 Room Air 04/29/23 08:00 Room Air 04/29/23 07:29 36.6 C 76 19 140/83 96 Room Air Laboratory Results Abnormal lab results 04/29/23 04/29/23 04/29/23 Range/Units 00:17 00:43 01:17 WBC (4.8-10.8) K/ul RBC (4.20-5.40) M/uL Hgb (12.0-16.0) g/dl Hct (37.0-47.0) % MCHC (32.0-36.0) g/dL RDW Std Deviation (36.4-46.3) fL Neut # (Auto) (1.40-6.50) K/uL Izard # (Auto) (0.11-0.59) K/uL Sodium (136-145) mmol/L Carbon Dioxide (21-32) mmol/L BUN (6-23) mg/dl Creatinine (0.6-1.2) mg/dl POC Glucose 63 L* 64 L* 103 H (70-99) mg/dl Calcium (8.6-10.3) mg/dl 04/29/23 Range/Units 05:44 WBC 16.85 H (4.8-10.8) K/ul RBC 3.58 L (4.20-5.40) M/uL Hgb 10.4 L (12.0-16.0) g/dl Hct 33.3 L (37.0-47.0) % MCHC 31.2 L (32.0-36.0) g/dL RDW Std Deviation 48.4 H (36.4-46.3) fL Neut # (Auto) 12.45 H (1.40-6.50) K/uL Izard # (Auto) 1.62 H (0.11-0.59) K/uL Sodium 131 L (136-145) mmol/L Carbon Dioxide 18 L (21-32) mmol/L BUN 58 H (6-23) mg/dl Creatinine 3.51 H D (0.6-1.2) mg/dl POC Glucose (70-99) mg/dl Calcium 8.5 L (8.6-10.3) mg/dl Diagnostic Findings Renal Ultrasound 04/28/23 17:26 ULTRASOUND KIDNEYS AND BLADDER CLINICAL HISTORY: Acute renal insufficiency. COMPARISON STUDY: Abdominal CT dated 04/23/2022. TECHNIQUE: Portable real-time, grayscale, and color flow sonography of the kidneys and bladder is performed. Images are reviewed in the transverse and longitudinal planes. FINDINGS: Kidneys: The kidneys are normal in size and echotexture. The right kidney measures 9.4 x 3.9 x 3.8 cm and the left kidney measures 9.8 x 5.1 x 5.0 cm. There is no hydronephrosis. A 7 mm calculus is seen in the interpolar right kidney. There is no sonographic evidence of contour deforming renal mass lesion. No perinephric fluid is identified. Bladder: The bladder is normal in appearance. Ureteral jets were not seen. IMPRESSION: 1. The kidneys are normal in size and without hydronephrosis. 2. Right-sided nephrolithiasis. 6. The bladder is normal as visualized. ACT 112: Negative or not required by law. Electronically signed by: Gianni Polk M.D. 04/28/2023 9:49 PM PG Care Time/CCT Total # of Minutes Spent Total Time Spent with Patient: Total time spent is greater than 50% in coordination of care (as documented) at patient's floor/unit and/or counseling patient: Coding Level of Care Code 55122 SUB INP/OBS CARE 2/35MIN Diagnoses Pneumonia J18.9 Laterality: left Lung location: lower lobe of lung Pneumonia type: due to unspecified organism ROBERT (acute kidney injury) N17.9 Chronic kidney disease, stage 4 (severe) N18.4 Chronic combined systolic and diastolic CHF (congestive heart failure) I50.42 Essential hypertension I10 Hypertension type: essential hypertension Diabetes E11.9 (1) Pneumonia Laterality: left Lung location: lower lobe of lung Pneumonia type: due to unspecified organism Qualified Code(s): J18.9 - Pneumonia, unspecified organism (5) HTN (hypertension) Hypertension type: essential hypertension Qualified Code(s): I10 - Essential (primary) hypertension
[2023-04-29] MEDS: ATORVASTATIN 10 MG TAB PO SCH (20:51)
[2023-04-29] MEDS: PRAMIPEXOLE DIHYDROCHLO 0.5 MG TAB PO SCH (20:51)
[2023-04-30] MEDS: ACETAMINOPHEN 500 MG TAB PO SCH ×3 (02:52→14:12)
[2023-04-30] MEDS: ASPIRIN 81 MG ECTAB PO SCH (07:45)
[2023-04-30] MEDS: CLOPIDOGREL BISULFATE 75 MG TAB PO SCH (07:45)
[2023-04-30] MEDS: INSULIN ASPART PER UNIT CHARGE SC SCH ×2 (07:45→11:48)
[2023-04-30] MEDS: AZITHROMYCIN 250 MG TAB PO SCH (07:45)
[2023-04-30] MEDS: RANOLAZINE 500 MG ER TAB PO SCH (07:46)
[2023-04-30] MEDS: BENZONATATE 100 MG CAPSULE PO SCH ×2 (07:46→14:12)
[2023-04-30] MEDS: SERTRALINE HCL 50 MG TABLET PO SCH (07:46)
[2023-04-30] MEDS: ISOSORBIDE MONO EXTENDED REL 30 MG TABCR PO SCH (07:46)
[2023-04-30 08:48] LABS: BUN Creatinine Ratio 18.4 (10-20); Calcium 9.2 mg/dl (8.6-10.3); Creatinine Clr Calc Pharmacy 19.7 ml/min; Est GFR (African American) 18.2 ml/min; Est GFR (Non-African American) 15.7 ml/min; Potassium 4.8 mmol/L (3.5-5.1)
--- NOTE | 2023-04-30 13:10 | Discharge Summary ---
Date of Service April 30, 2023 Admission HPI Per Admitting Provider 3 days of deep cough with green sputum production, feverish, some night sweats. Feels tired and washed out. Pts at bedside 'shes been weak and washed out' for 3 days. No preceding viral URI. no chest pain or chest pressure. Has hx of bipass and PCI with stents, recent stress test with ?ischemic findings, cath was normal and DSE thought to be false positive. Has some low back pain when coughing, otherwise no pain. Vomited x1 after getting tylenol/codeine today. Was not having coarse respiration prior, has been since. Suctioning was performed by nursing at bedside. She feels midly short of breath. Denies weight gain. Takes lasix, denies orthopnea [employer]. Medical History: Reviewed Medications: Reviewed Surgical History: Reviewed Family history: Reviewed Allergies: Reviewed Social History: Reviewed, no tobacco/etoh Code Status: Full Admission Exam Per Admitting Provider General: A&Ox3. NAD. Cooperative. HEENT: Atraumatic, normocephalic. Pulm: Coarse diffusely, worse L>R. -wheezes, -rales. On NC. Cardiac: Regular tachycardic, -mrg. Radial pulses intact and symmetrical. Abdominal: Nontender, nondistended, soft. BS present. Ext: warm, dry. Principal Diagnosis Left lower lobe community-acquired pneumonia Sepsis due to pneumonia Hypotension Acute kidney injury secondary to sepsis Discharge Exam General: Awake, conversant Heart: S1, S2/regular rate and rhythm, no murmur rubs or gallops Lungs: Clear to auscultation bilaterally. Normal effort Abdomen: Soft/nontender/nondistended. No hepatosplenomegaly Extremities: No clubbing/cyanosis. No edema Behavior: Appropriate, cooperative Discharge Data Allergies Allergy/AdvReac Type Severity Reaction Status Date / Time isosorbide Allergy Intermediate Rash Verified 04/26/23 18:10 nickel Allergy Intermediate Rash Verified 04/26/23 18:10 Penicillins Allergy Intermediate Numbness Verified 04/26/23 18:10 of lips prasugrel Allergy Intermediate RASH,ITCHY Verified 04/26/23 18:10 Consultations 04/26/23 16:34 ED Decision to Admit Stat Ordered Studies 04/26/23 16:11 CT chest diagnostic wo con Stat 04/28/23 17:26 US Kidney Bladder [US renal/blad retro comp] Urgent Hospital Course (1) Pneumonia: LLL PNA - complicated with severe sepsis and hypotension acute kidney injury - Dense consolidation - the patient feels better Blood culture sputum culture pending, - leukocytosis trended down, - creatinine has peaked and is trending downward -Improving, - currently on room air Discharged on p.o. Keflex and azithromycin (2) ROBERT (acute kidney injury): Baseline creatinine is between 1.69-2.4, presented to the hospital with creatinine of 2.45, started on IV fluid, most likely secondary to pneumonia/sepsis/hypertension, seems to have peaked at 3.9. Trending down. 2.8 today. Retroperitoneal ultrasound negative for obstruction (3) Chronic kidney disease, stage 4 (severe): Baseline creatinine ranging from 1.692.4 Creatinine 2.45 on admission Magnesium repleted Trend outpatient (4) Chronic combined systolic and diastolic CHF (congestive heart failure): Mildly elevated troponin, demand ischemia, compensated heart failure (5) HTN (hypertension): was initially Hypotensive due to sepsis blood pressure creeping up with sepsis improving Monitor Lasix 40 mg as needed on hold for now Continue metoprolol and Imdur (6) Diabetes: scaled short acting insulin, goal BSG [id number]. DM 2 diet Reduce the dose of long-acting insulin due to decreased renal clearance in the face of an acute kidney injury. The dose may need to be adjusted by her PCP when her kidney function is back to her baseline Plan discharge today to home. PT/OT cleared the patient for discharge to home. Total Time Total Time Spent Total Time Spent (In Minutes): 35 Discharge Plan Discharge Items Patient Disposition: Home - Self-Care Reason For Visit: PNEUMONIA Discharge Diagnosis: pneumonia, sepsis, hypotension, acute kidney injury Activity: Resume your previous activity Non-emergency contact: Primary Care Provider Call non-emergency contact if: you have any medication questions and your symptoms worsen Follow-up/Referrals: Gretchen Sanders MD [Primary Care Provider] - 05/07/23 3:15 pm (Follow up scheduled 05/07/23 @ 3:15) Diet: Carb Consistent or DM2 and Heart Healthy Addtl Attending Provider Instructions: Advised to follow-up with PCP in 1 week Pending Studies at Discharge: No Stand-Alone Forms: [email or web address] [employer] Medications and DC Order Prescriptions: New azithromycin 250 mg Tablet 500 mg PO QAM 3 Days Qty: 6 0RF cephalexin 500 mg capsule 500 mg PO BID 3 Days Qty: 6 0RF Continued (DME) pen needle, diabetic [BD Ultra-Fine Short Pen Needle] 31 gauge x 5/16" needle See Rx Instructions .Route Qty: 500 3RF Rx Instructions: Use with insulin pen 5 times a day Dx:E11.9 nitroglycerin 0.4 mg tablet, sublingual 0.4 mg SL Q5M PRN (Reason: Chest Pain) Qty: 25 3RF hydroxyzine HCl 25 mg tablet 25 mg PO QID PRN (Reason: itching) Qty: 90 1RF (DME) OneTouch Verio test strips Strip See Rx Instructions .Route Qty: 100 4RF Rx Instructions: Verio Test Strips, Test QID or as directed pramipexole 0.5 mg tablet 0.5 mg PO HS Qty: 90 3RF atorvastatin 10 mg tablet 10 mg PO QPM Qty: 90 3RF (DME) blood-glucose meter [OneTouch Verio Meter] Misc See Rx Instructions .Route Qty: 1 0RF Rx Instructions: Test QID or as directed (DME) Dexcom G6 Tie Binder Misc See Rx Instructions .Route Qty: 1 0RF Rx Instructions: As directed clopidogrel 75 mg tablet 75 mg PO QAM Qty: 32 6RF sertraline 100 mg tablet 150 mg PO DAILY 90 Days Qty: 135 3RF Trulicity 4.5 mg/0.5 mL pen injector 4.5 mg subcut WK Qty: 2 3RF (DME) Dexcom G6 Transmitter Device See Rx Instructions .Route Qty: 1 0RF Rx Instructions: As directed furosemide 40 mg tablet 40 mg PO DAILY PRN (Reason: weight gain) Qty: 90 1RF Hold Instructions: ROBERT cyanocobalamin (vitamin B-12) 5,000 mcg tablet,disintegrating 5,000 mcg PO QAM ferrous gluconate 324 mg (38 mg iron) tablet 324 mg PO BID albuterol sulfate 90 mcg/actuation HFA aerosol inhaler 2 puff inhalation Q6H PRN (Reason: Shortness Of Breath Or Wheezing) Qty: 18 3RF (DME) Diabetic Shoes Misc See Rx Instructions .Route Qty: 1 0RF Rx Instructions: As directed. E11.9, Z79.4 (DME) flash glucose sensor Kit See Rx Instructions .Route Qty: 1 0RF Rx Instructions: As directed E11.9, Z79.4 (DME) flash glucose scanning reader Misc See Rx Instructions .Route Qty: 1 0RF Rx Instructions: As directed E11.9, Z79.4 (DME) Dexcom G6 Sensor Device See Rx Instructions .Route Qty: 3 3RF Rx Instructions: As directed ranolazine 500 mg tablet extended release 12 hr 500 mg PO BID Qty: 180 3RF isosorbide mononitrate 30 mg tablet extended release 24 hr 30 mg PO DAILY Qty: 90 1RF magnesium oxide 400 mg Capsule 400 mg PO BID Probiotic 3 billion cell Capsule 1 cap PO HS multivitamin [Multiple Vitamins] Tablet 1 tab PO QAM ascorbic acid (vitamin C) 1,000 mg Tablet Extended Release 1,000 mg PO QAM zinc gluconate 50 mg Tablet 50 mg PO DAILY insulin lispro [Humalog KwikPen Insulin] 100 unit/mL Insulin Pen 1 sliding scale dose SUBCUT TID triamcinolone acetonide 0.1 % cream 1 applic topical BID PRN (Reason: Skin Irritation) Rx Instructions: Use for no longer than 2 wks. aspirin 81 mg Tablet,Delayed Release (Dr/Ec) 81 mg PO QAM Qty: 0 0RF metoprolol succinate 25 mg tablet extended release 24 hr 50 mg PO QAM Changed insulin glargine [Lantus Solostar U-100 Insulin] 100 unit/mL (3 mL) insulin pen 20 unit subcut BID 90 Days Qty: 54 3RF Discharge Orders: Discharge Order (Routine); Ordered 04/30/23 Ordered By: Alexander Porter Admission Data Admit Date/Time: 04/26/23 19:45 Attending Provider: Alexander Porter Admit Provider: Gavino Kaye Primary Care Provider: Gretchen Sanders Other Providers: Gavino Kaye Other Interventions: Discharge Summary Assessment (RN) Last Done: 04/30/23 13:40 Coding Level of Care Code 65194 INP/OBS DISCH >30 MIN Diagnoses Pneumonia J18.9 Laterality: left Lung location: lower lobe of lung Pneumonia type: due to unspecified organism ROBERT (acute kidney injury) N17.9 Chronic kidney disease, stage 4 (severe) N18.4 Chronic combined systolic and diastolic CHF (congestive heart failure) I50.42 Essential hypertension I10 Hypertension type: essential hypertension Diabetes E11.9
== END 2023-04-30 14:39 | disposition home or self-care (01) | DRG 871 ==
LOC: ED 14:55 → SUATTDRO 19:45 → 2E 19:45
DX: I44.0 Atrioventricular block, first degree; Z79.85 Long-term (current) use of injectable non-insulin antidiabetic drugs; I24.89 Other forms of acute ischemic heart disease; Z95.1 Presence of aortocoronary bypass graft; Z79.02 Long term (current) use of antithrombotics/antiplatelets; R65.20 Severe sepsis without septic shock; Z95.5 Presence of coronary angioplasty implant and graft; I25.10 Atherosclerotic heart disease of native coronary artery without angina pectoris; E11.22 Type 2 diabetes mellitus with diabetic chronic kidney disease; Z88.0 Allergy status to penicillin; I13.0 Hypertensive heart and chronic kidney disease with heart failure and stage 1 through stage 4 chronic kidney disease, or unspecified chronic kidney disease; A41.9 Sepsis, unspecified organism; N17.9 Acute kidney failure, unspecified; N18.4 Chronic kidney disease, stage 4 (severe); J18.9 Pneumonia, unspecified organism; I50.42 Chronic combined systolic (congestive) and diastolic (congestive) heart failure